=== PATIENT | female | born 1985 | race Caucasian/White ===

== ENCOUNTER 2021-11-30 19:31 | Emergency (ER) | payer MEDICARE, MEDICAID, SELFPAY ==
[2021-11-30 19:53] VITALS: BP 148/80; PULSE 71; RESP 22; TEMP 36.3; O2SAT 98
--- NOTE | 2021-11-30 20:03 | ED_ITS ---
HPI - Dental/Oral General: Chief complaint: Dental/Oral Stated complaint: Tooth Ache Time Seen by Provider: 11/30/21 19:54 History of Present Illness: Patient's had dental pain last few days lower left rear molar. Review of Systems Narrative: To third ENMT: Reports: dental pain Resp: Denies: dyspnea Neuro: Denies: headache(s) Physical Exam Const: COMMON NORMALS: no acute distress HENMT: TEETH & GINGIVA: Yes caries (Left rear molar, no gum swelling noted.) Lymph: LYMPHATIC: no lymphadenopathy noted Psych: COMMON NORMALS: mental status grossly normal Course Vital Signs: Vital signs: Vital Signs Temperature 97.4 F L 11/30/21 19:53 Pulse Rate 71 11/30/21 19:53 Respiratory Rate 22 H 11/30/21 19:53 Blood Pressure 148/80 11/30/21 19:53 Pulse Oximetry 98 11/30/21 19:53 MDM - Dental/Oral Medical Decision Making Dental caries Discharge Plan Discharge Patient Disposition: Home Clinical Impression: Toothache Condition: Stable Prescriptions: New Celebrex 100 mg capsule 100 mg PO BID Qty: 20 0RF clindamycin HCl 300 mg capsule 300 mg PO Q8H 7 Days Qty: 21 0RF Lidocaine Viscous 2 % solution 1 applic mucous membrane Q6H PRN (Reason: pain) Qty: 100 0RF Discharge Orders: Discharge ED (Routine); Ordered 11/30/21 Ordered By: Paul Wheeler Discharge Diet: Usual diet Discharge Activity: Resume usual activity Patient Instructions: Dental Caries (Cavities) Activity Restrictions/Additional Instructions: Take medication as directed. Follow-up with dentist as soon as you can. Coding Level of Care Code ED Linderman Machine Operator for Kyler Fernandez
[2021-11-30] MEDS: clindamycin 150 mg Capsule 300 MG PO (20:09)
[2021-11-30] MEDS: CELEcoxib 200 mg Capsule 400 MG PO (20:09)
[2021-11-30 22:03] VITALS: BP 147/84; PULSE 72; RESP 20; TEMP 36.4; O2SAT 99
== END 2021-11-30 22:04 | disposition home or self-care (01) ==
PROVIDERS: Emergency Provider Nurse Practitioner Family
DX: K08.89 Other specified disorders of teeth and supporting structures (principal)
CPT/HCPCS: 99283

== ENCOUNTER 2022-03-11 10:26 | Emergency (ER) | payer MEDICARE, MEDICAID, SELFPAY ==
[2022-03-11 11:02] VITALS: BP 173/103; PULSE 71; RESP 18; TEMP 36.8; O2SAT 94; BMI 51.5
--- NOTE | 2022-03-11 11:12 | ED_ITS ---
HPI - Dental/Oral General: Chief complaint: Dental/Oral Stated complaint: tooth pain Time Seen by Provider: 03/11/22 11:08 History of Present Illness: Patient is a 36-year-old female comes to the ED with dental pain. Patient has pain and swelling on top left back molar. She rates her pain currently a 9 out of 10. Symptoms started approximately 3 days ago. Patient has an appointment with her dentist in 2 weeks. Associated symptoms: Denies fever(s) or odynophagia Review of Systems Const: Denies: fever(s), chills or fatigue Eyes: Denies: change in vision or eye discomfort ENMT: Reports: dental pain (Top back left molar); Denies: throat pain, odynophagia, nasal discharge or nasal congestion Card: Denies: chest pain, palpitations, edema, swelling of feet/ankles, dyspnea on exertion or orthopnea Resp: Denies: dyspnea, productive cough or non-productive cough GI: Denies: abdominal pain, nausea, vomiting, diarrhea, constipation or hematochezia : Denies: flank pain, dysuria or hematuria Musc: Denies: neck pain, back pain or extremity swelling Skin/Breast: Denies: rash or new lesions Neuro: Denies: headache(s), numbness in extremities or weakness in extremities PFSH ED PFSH: Medical History No pertinent family history Surgical History No pertinent past surgical history Physical Exam Const: COMMON NORMALS: no acute distress and patient oriented x3 GENERAL APPEARANCE: cooperative and comfortable HENMT: COMMON NORMALS: normocephalic HEAD & SCALP: normocephalic MOUTH: Normal oral and palatal mucosa present TEETH & GINGIVA: Yes abnormal tooth and associated gingiva upper left third molar tender and other (And severe dental decay) THROAT: posterior oropharynx normal and uvula midline Neck/C-Spine: COMMON NORMALS: supple GENERAL: Yes normal visual inspection Resp: COMMON NORMALS: normal respiratory effort, No retractions, No use of accessory muscles and clear to auscultation bilaterally AUSCULTATION: clear to auscultation bilaterally Cardio: COMMON NORMALS: regular rate, regular rhythm, S1 normal heart sound present, S2 normal heart sound present, No gallops present (Cardio), No clicks present (Cardio), No murmurs present (Cardio) and Peripheral pulses 2+ throughout RATE: regular rate RHYTHM: regular rhythm HEART SOUNDS: S1 normal heart sound present and S2 normal heart sound present PERIPHERAL PULSES: Peripheral pulses 2+ throughout GI: COMMON NORMALS: Normal to inspection, nondistended, normoactive bowel sounds present, Soft to palpation, non-tender and no masses PALPATION: Yes Soft to palpation : COMMON NORMALS: Yes no CVA tenderness BLADDER/KIDNEY EXAM: Yes no CVA tenderness Back/Pelvis: COMMON NORMALS: no CVA tenderness Extremity: COMMON NORMALS: normal to inspection Neuro: COMMON NORMALS: patient oriented x3 and moves all extremities Skin: GENERAL SKIN EXAM: dry skin Course Vital Signs: Vital signs: Vital Signs Temperature 98.2 F 03/11/22 11:02 Pulse Rate 71 03/11/22 11:02 Respiratory Rate 18 03/11/22 11:02 Blood Pressure 173/103 03/11/22 11:02 Pulse Oximetry 94 03/11/22 11:02 [facility] - Dental/Oral Medical Decision Making Patient is a 32-year-old female comes in the ED with dental pain. Vitals are stable and she appears nontoxic and has some severe dental decay of upper left molar. Patient has appointment with her dentist for the next 2 weeks. She was given a dose of hydrocodone to help with pain here in the ED. Patient discharged home with a prescription for clindamycin, lidocaine viscous and Celebrex for pain. Return ED precautions given. Patient understood agree with plan. Discharge Plan Discharge Patient Disposition: Home Clinical Impression: Pain, dental Condition: Stable Prescriptions: New clindamycin HCl 150 mg capsule 300 mg PO QID 7 Days Qty: 56 0RF Celebrex 100 mg capsule 100 mg PO BID PRN (Reason: pain) Qty: 20 0RF Lidocaine Viscous 2 % solution 1 applic mucous membrane DAILY PRN (Reason: pain) Qty: 100 0RF No Action Celebrex 100 mg capsule 100 mg PO BID Qty: 20 0RF Lidocaine Viscous 2 % solution 1 applic mucous membrane Q6H PRN (Reason: pain) Qty: 100 0RF Discharge Orders: Discharge ED (Routine); Ordered 03/11/22 Ordered By: Robert Rios Discharge Diet: Regular Discharge Activity: Increase activity as tolerated Patient Instructions: Toothache (ED) Activity Restrictions/Additional Instructions: Follow-up with your dentist at Scheduled appointment in 2 weeks for further evaluation of dental pain. Take medications as prescribed. Return to the ER or your medical provider if condition worsens. Please read and understand discharge instructions. Thank you for choosing [facility] for your healthcare needs today. Please realize this is an emergency room and that we are providing you with a medical screening exam and this may not be complete and all inclusive of all the testing and or work up that you may need to determine your ailment or severity of your illness. It is very important that you follow up as instructed or that you return to the Emergency Department should you have concerns or if your co ndition changes or worsens in any way. Coding Level of Care Code ED Banking Consultant for Kyler Fernandez Exam Comprehensive
[2022-03-11] MEDS: HYDROcodone-acetaminophen 7.5-325 mg Tablet 1 TAB PO (11:24)
== END 2022-03-11 11:24 | disposition home or self-care (01) ==
PROVIDERS: Emergency Provider Physician Assistant
DX: K08.89 Other specified disorders of teeth and supporting structures (principal)
CPT/HCPCS: 99283

== ENCOUNTER 2022-04-14 13:48 | Emergency (ER) | payer MEDICARE, MEDICAID, SELFPAY ==
[2022-04-14 14:15] VITALS: BP 174/75; PULSE 61; RESP 18; TEMP 36.6; O2SAT 98
--- NOTE | 2022-04-14 15:03 | W.ED.GENADLT ---
HPI - General Adult General: Chief complaint: Dental/Oral Stated complaint: dental pain Time Seen by Provider: 04/14/22 14:37 History of Present Illness: Patient is a 36-year-old female coming in from a detention presenting to the emergency room for evaluation of tooth pain. Patient first felt tooth pain yesterday night. Patient tells me that she scheduled to have wisdom teeth taken out on 04/18. Given significant yesterday night, patient decided to come to the emergency room for evaluation. Patient denies any fever or chills, reports some mild left-sided facial swelling. Patient has no trismus, tongue protrusion or elevation, drooling, or any other complaints at this time Onset: Yesterday night Duration:ongoing Location:home Severity:mild Associated symptoms: Deny chest pain, dyspnea, nausea, rash, palpitations or vomiting Review of Systems Const: Denies: fever(s) or chills Eyes: Denies: change in vision ENMT: Reports: other (+dental pain); Denies: mouth pain Card: Denies: chest pain or palpitations Resp: Denies: dyspnea or non-productive cough GI: Denies: abdominal pain, nausea, vomiting or diarrhea : Denies: dysuria Musc: Denies: extremity pain Skin/Breast: Denies: rash or new lesions Neuro: Denies: weakness in extremities Psych: Reports: other (Normal mood) Maik/Lymph: Denies: easy bruising PFS ED PFSH: Medical History No pertinent family history Surgical History No pertinent past surgical history Social History (Updated 04/14/22 @ 15:04 by Dami Wilson MD) Smoking and tobacco status: never smoked Alcohol intake: never Substance/Drug Use: never Physical Exam Const: COMMON NORMALS: alert HENMT: COMMON NORMALS: atraumatic HEAD & SCALP: atraumatic MOUTH: moist mucous membranes not abnormal OTHER: Tooth #16 tenderness to palpation +Mild L maxillary facial swelling without periorbital involvement with tenderness to palpation Eye: COMMON NORMALS: EOMs intact bilaterally and conjunctivae normal CONJUNCTIVA: Yes conjunctivae normal Neck/C-Spine: COMMON NORMALS: full ROM and supple Resp: COMMON NORMALS: normal respiratory effort and clear to auscultation bilaterally AUSCULTATION: clear to auscultation bilaterally Cardio: COMMON NORMALS: regular rate RATE: regular rate GI: COMMON NORMALS: Soft to palpation and non-tender PALPATION: Yes Soft to palpation Extremity: COMMON NORMALS: full ROM Neuro: SENSORIUM/ORIENTATION: Yes alert MOTOR EXAM: No Abnormal motor strength present and Other motor observations present (no focal motor deficits) Psych: COMMON NORMALS: speech normal SPEECH: Yes normal speech MOOD & AFFECT: Yes euthymic mood Course Vital Signs: Vital signs: Vital Signs Temperature 97.8 F 04/14/22 14:15 Pulse Rate 61 04/14/22 14:15 Respiratory Rate 18 04/14/22 14:15 Blood Pressure 174/75 04/14/22 14:15 Pulse Oximetry 98 04/14/22 14:15 MDM - General Adult Medical Decision Making 36-year-old female presenting to the emergency room with complaints of tooth #16 pain since yesterday night. On exam, patient has significant tenderness to palpation. There is noted some mild left-sided maxillary facial swelling with out any periorbital involvement. Patient is afebrile. No signs of oral airway compromise. Patient will be started with Augmentin for possible tooth infection. Suspect symptoms are likely unrelated to tooth infection as opposed to wisdom teeth pain. Patient has an appointment with her dentist on 04/18/2022. Pain improved with toradol. Rx augmentin for possible dental infection, tylenol PRN pain Disposition: Discharge. Patient counseled regarding diagnostic impression, treatment plan. Patient given ED strict return precautions to return for continuation, worsening, or development of new symptoms. Instructed to f/u w/ PCP regarding symptoms today. Patient verbalized understanding. Discharge Plan Discharge Patient Disposition: Home Clinical Impression: Pain, dental Condition: Stable Prescriptions: New Augmentin 500-125 mg tablet 1 tab PO BID 7 Days Qty: 14 0RF acetaminophen 500 mg tablet 500 mg PO Q6H PRN (Reason: pain) 5 Days Qty: 20 0RF No Action Celebrex 100 mg capsule 100 mg PO BID Qty: 20 0RF Lidocaine Viscous 2 % solution 1 applic mucous membrane Q6H PRN (Reason: pain) Qty: 100 0RF Celebrex 100 mg capsule 100 mg PO BID PRN (Reason: pain) Qty: 20 0RF Lidocaine Viscous 2 % solution 1 applic mucous membrane DAILY PRN (Reason: pain) Qty: 100 0RF Discharge Orders: Discharge ED (Routine); Ordered 04/14/22 Ordered By: Dami Wilson Discharge Diet: Advance as tolerated Discharge Activity: Increase activity as tolerated Activity Restrictions/Additional Instructions: Follow-up with your dentist for further evaluation of your wisdom teeth to see they can be removed sooner. Please take your antibiotics as instructed. Watch out for signs of skin changes/redness, mouth redeness or swelling, nausea/vomiting, diarrhea, blood in the urine or any new or concering complaints. Coding Level of Care Code ED Director Of Retail for Kyler Fernandez
[2022-04-14] MEDS: ketorolac 30 mg/mL INJ IM (15:16)
[2022-04-14] MEDS: amoxicillin-clav 500-125 mg Tablet 1 TAB PO (15:16)
== END 2022-04-14 15:17 | disposition home or self-care (01) ==
PROVIDERS: Emergency Provider Emergency Medicine
DX: K08.89 Other specified disorders of teeth and supporting structures (principal)
CPT/HCPCS: 96372; 99284; J1885; J2270

== ENCOUNTER 2022-04-14 21:19 | Emergency (ER) | payer MEDICARE, MEDICAID, SELFPAY ==
[2022-04-14 21:28] VITALS: BP 169/79; PULSE 66; RESP 20; TEMP 36.3; O2SAT 97
[2022-04-14 22:23] VITALS: RESP 20
[2022-04-14] MEDS: morphine 4 mg/mL SDV 1 mL IM (22:23)
--- NOTE | 2022-04-14 22:34 | W.ED.GENADLT ---
HPI - General Adult General: Chief complaint: Dental/Oral Stated complaint: Dental pain Time Seen by Provider: 04/14/22 21:47 History of Present Illness: 36-year-old female from [facility] presenting to the emergency room with complaints of tooth #16 pain. Patient was seen and evaluated earlier in the emergency room however due to significant pain patient decided to come to the emergency room. I discussed case with patient's legal guardian and profile saw setup operator who tells me that patient will not be schedule for wisdom teeth removal until 04/18 in [place] to logistical issues. Onset:1 day ago Duration:1 day Location:home Severity:moderate Associated symptoms: Deny chest pain, dyspnea, nausea, rash, palpitations or vomiting Review of Systems Const: Denies: fever(s) or chills Eyes: Denies: change in vision ENMT: Reports: other (+tooth pain); Denies: mouth pain Card: Denies: chest pain or palpitations Resp: Denies: dyspnea or non-productive cough GI: Denies: abdominal pain, nausea, vomiting or diarrhea : Denies: dysuria Musc: Denies: extremity pain Skin/Breast: Denies: rash or new lesions Neuro: Denies: weakness in extremities Psych: Reports: other (Normal mood) Maik/Lymph: Denies: easy bruising PFSH ED PFSH: Medical History No pertinent family history Surgical History No pertinent past surgical history Social History Smoking and tobacco status: never smoked Alcohol intake: never Physical Exam Const: COMMON NORMALS: alert HENMT: COMMON NORMALS: atraumatic HEAD & SCALP: atraumatic MOUTH: moist mucous membranes not abnormal OTHER: Tooth #16 tenderness palpation No trismus, mild left-sided maxillary facial swelling noted without periorbital involvement Eye: COMMON NORMALS: EOMs intact bilaterally and conjunctivae normal CONJUNCTIVA: Yes conjunctivae normal Neck/C-Spine: COMMON NORMALS: full ROM and supple Resp: COMMON NORMALS: normal respiratory effort and clear to auscultation bilaterally AUSCULTATION: clear to auscultation bilaterally Cardio: COMMON NORMALS: regular rate RATE: regular rate GI: COMMON NORMALS: Soft to palpation and non-tender PALPATION: Yes Soft to palpation Extremity: COMMON NORMALS: full ROM Neuro: SENSORIUM/ORIENTATION: Yes alert MOTOR EXAM: No Abnormal motor strength present and Other motor observations present (no focal motor deficits) Psych: COMMON NORMALS: speech normal SPEECH: Yes normal speech MOOD & AFFECT: Yes euthymic mood Course Vital Signs: Vital signs: Vital Signs Temperature 97.4 F L 04/14/22 21:28 Pulse Rate 66 04/14/22 21:28 Respiratory Rate 20 H 04/14/22 22:23 Blood Pressure 169/79 04/14/22 21:28 Pulse Oximetry 97 04/14/22 21:28 MDM - General Adult Medical Decision Making 36-year-old female presenting to the emergency room for concerns of wisdom tooth pain at tooth #16. Patient is experiencing moderate pain and this is her second ER visit. Patient has moderate tenderness palpation over the left tooth #16. I have discussed the situation with patient's profile saw setup operator who reassures me that we will advocate for patient to have to be seen sooner for dental work. Patient received IM morphine and percocet in the ED and reports pain is moderately improved. Rx percocet PRN pain Disposition: Discharge. Patient counseled regarding diagnostic impression, treatment plan. Patient given ED strict return precautions to return for continuation, worsening, or development of new symptoms. Instructed to f/u w/ PCP regarding symptoms today. Patient verbalized understanding. Discharge Plan Discharge Patient Disposition: Home Clinical Impression: Pain, dental Condition: Stable Prescriptions: New Lidocaine Viscous 2 % solution 1 applic mucous membrane DAILY PRN (Reason: pain) Qty: 100 0RF Percocet 5-325 mg tablet 1 tab PO Q8H PRN (Reason: pain) Qty: 9 0RF No Action Celebrex 100 mg capsule 100 mg PO BID Qty: 20 0RF Lidocaine Viscous 2 % solution 1 applic mucous membrane Q6H PRN (Reason: pain) Qty: 100 0RF Celebrex 100 mg capsule 100 mg PO BID PRN (Reason: pain) Qty: 20 0RF Lidocaine Viscous 2 % solution 1 applic mucous membrane DAILY PRN (Reason: pain) Qty: 100 0RF Augmentin 500-125 mg tablet 1 tab PO BID 7 Days Qty: 14 0RF acetaminophen 500 mg tablet 500 mg PO Q6H PRN (Reason: pain) 5 Days Qty: 20 0RF Discharge Orders: Discharge ED (Routine); Ordered 04/14/22 Ordered By: Dami Wilson Discharge Diet: Advance as tolerated Discharge Activity: Increase activity as tolerated Patient Instructions: Toothache (ED) Activity Restrictions/Additional Instructions: Please follow-up with your dentist to have your wisdom teeth removed. Coding Level of Care Code ED Gas Meter Checker for Chg Fwd Exam Comprehensive
[2022-04-14 22:57] VITALS: RESP 16
== END 2022-04-14 22:58 | disposition home or self-care (01) ==
PROVIDERS: Emergency Provider Emergency Medicine
DX: K08.89 Other specified disorders of teeth and supporting structures (principal)
CPT/HCPCS: 96372; 99284; J2270

== ENCOUNTER 2023-12-18 03:52 | Inpatient (IN) | payer MEDICARE, MEDICAID, SELFPAY ==
--- NOTE | 2023-12-18 03:39 | ECG_ITS ---
[facility] Test Date: 2023-12-18 Pat Name: Joi Diaz Department: Room: 152 Gender: Female Medicaid Collection Specialist: : 1985 Requested By: Shimon Urena Order Number: [id number] Manuela MD: Ky Navas M.D. Measurements Intervals [place] Rate: 68 P: 67 IA: 143 QRS: 13 QRSD: 106 T: 27 QT: 400 QTc: 428 Interpretive Statements SINUS RHYTHM WITH SINUS ARRHYTHMIA POSSIBLE RIGHT VENTRICULAR CONDUCTION DELAY [RSR (QR) IN V1/V2] No previous ECG available for comparison Electronically Signed On 12-18-2023 15:18:58 CDT by Ky Navas M.D. [id number]
[2023-12-18 03:53] VITALS: BP 163/114; PULSE 90; RESP 18; TEMP 36.8; O2SAT 99; BMI 43.8
--- NOTE | 2023-12-18 04:10 | PC.NURSE ---
Patient was dressed out of all regular clothing. When asked to remove her two bras, patient raised her voice and began to make statements that she would not take off her bra, and that she would leave. When security was brought to the room, campus security officer Sahil told patient that she could keep her sports bra on but not the one with underwire. All other clothes and belongings removed from patient and placed in labeled bag. Patient placed in green paper scrubs. PSA present with patient at this time.
--- NOTE | 2023-12-18 04:32 | ED.C_ITS ---
HPI - Psych 2 General: Chief Complaint: Psychiatric Symptoms Stated Complaint: MHE Time Seen by Provider: 12/18/23 03:54 History of Present Illness: 38-year-old female presents to the emerg ency department via EMS personnel stating that she needs to be seen in the stress unit because she feels that people are messing with her while she is on her phone. She states that they make her phone say things and type things that make her angry and upset. Patient states that she knows that people are coming into her house and taking things from her. She states that she knows that when she leaves and then comes back home she feels like things are missing and then these things randomly show up weeks to months later. She states someone is doing that just to mess with her but she is unsure of who is doing it. Patient has a very labile mood and states that the intake scrubs were specifically made smaller by the staff just to mess with her. She states she does not want to harm herself or anyone else. The patient states that she feels her mother is jealous of her and and might be making people do things that irritate her and make her angry. Associated symptoms: Deny auditory hallucinations, visual hallucinations, homicidal ideation or suicidal ideation Review of Systems 2 General: Reports: 10 or more systems reviewed and unremarkable except in HPI and below Psych: Reports: mood swings, irritability and paranoia; Denies: difficulty concentrating, visual hallucinations, auditory hallucinations, tactile hallucinations, suicidal ideation or homicidal ideation [facility] ED 2 PFSH: Medical History (Updated 12/18/23 @ 05:18 by Shimon Urena MD) No pertinent family history Surgical History (Updated 02/11/23 @ 16:25 by Marva Aleman) No pertinent past surgical history Social History (System 02/11/23 @ 16:25 by Marva Aleman) Smoking and tobacco/nicotine status: never used tobacco/nicotine Alcohol intake: never Substance/Drug Use: never Female Reproductive History: Date of last menstrual period: 12/18/23 Physical Exam 2 Narrative: EXAM NARRATIVE: Constitutional: the patient appears well nourished and with normal development. Vital signs reviewed as documented. She does appear to be very irritated and is cussing and yelling at the nursing staff and the information security risk analyst. HENMT: Normocephalic, atraumatic. External ears normal appearance without drainage. Nose without drainage, normal appearance. Mucus membranes moist. Neck is supple, No jugular venous distension, trachea is midline. No meningeal signs. Flexion, extension and lateral rotation is without pain. Eyes: Pupils are equal, round, reactive to light and accommodation. No scleral icterus. Extra-ocular movement are intact. Thorax is symmetrical and with equal rise and fall with respirations. Resp: Lungs are clear to auscultation. No wheezes, rales, crackles or ronchi at present. Cardio: Regular rate and rhythm. Positive S1, S2. No appreciable murmurs, rubs or gallops. GI: Abdominal exam reveals normal bowel sounds to all quadrants. No organomegaly. No obvious palpable masses noted. No hepatomegally appreciated. Soft, non-tender to palpation. Extremity: Extremities are non-edematous and both femoral and pedal pulses are 2+ and equal bilaterally. Moves all extremities well, sensation in all extremities. Neuro: Alert and oriented x4, person, place, time and situation. Cranial nerves II through XII are grossly intact, there is no focal neurological deficits that I can appreciate at present. Motor strength in the upper and lower extremities are equal and bilateral 5/5. Psych: Angry, verbally aggressive, labile mood, paranoid statements Skin: No lesions, rashes. No gross abnormalities noted. Back: Symmetrical, no obvious deformity, No CVA tenderness Course 2 Vital Signs: Vital signs: Vital Signs Temperature 98.3 F 12/18/23 03:53 Pulse Rate 90 12/18/23 03:53 Respiratory Rate 18 12/18/23 03:53 Blood Pressure 163/114 12/18/23 03:53 Pulse Oximetry 99 12/18/23 03:53 Oxygen Delivery Me thod Room Air 12/18/23 03:53 MDM - Psych Medical Decision Making I will obtain laboratory evaluation for psychiatric medical clearance and request admission to the neuropsychiatric unit for additional evaluation treatment and care. Medical Records I reviewed the patient's medical records. Lab Data I reviewed the patient's lab results. 12/18/23 04:40 12/18/23 04:40 Laboratory Results WBC 9.57 10^3/uL (3.29-11.43) 12/18/23 04:40 RBC 4.48 10^6/uL (3.85-5.65) 12/18/23 04:40 Hgb 13.90 g/dL (11.27-16.99) 12/18/23 04:40 Hct 41.1 % (36-47) 12/18/23 04:40 MCV 91.7 fl (85-98) 12/18/23 04:40 MCH 31.0 pg (27-33) 12/18/23 04:40 MCHC 33.8 g/dL (30-55) 12/18/23 04:40 RDW 13.6 % (12.1-15.1) 12/18/23 04:40 Plt Count 233 10^3/cmm (157-399) 12/18/23 04:40 MPV 10.7 fL (7.4-10.4) H 12/18/23 04:40 Neut % (Auto) 69.9 % 12/18/23 04:40 Lymph % (Auto) 21.2 % 12/18/23 04:40 Burt % (Auto) 6.5 % 12/18/23 04:40 Eos % (Auto) 1.6 % 12/18/23 04:40 Baso % (Auto) 0.6 % 12/18/23 04:40 Neut # (Auto) 6.69 10^3/uL (1.8-7.7) 12/18/23 04:40 Lymph # (Auto) 2.0 10^3/uL (0.8-4.8) 12/18/23 04:40 Burt # (Auto) 0.6 10^3/uL (0.2-0.9) 12/18/23 04:40 Eos # (Auto) 0.2 10^3/uL (0.0-0.8) 12/18/23 04:40 Baso # (Auto) 0.1 10^3/uL (0.0-0.1) 12/18/23 04:40 Nucleated RBC % (auto) 0 % 12/18/23 04:40 Nucleated RBCs # 0.0 /100WBC 12/18/23 04:40 Sodium 141 mmol/L (136-145) 12/18/23 04:40 Potassium 3.6 mmol/L (3.5-5.1) 12/18/23 04:40 Chloride 104 mmol/L (98-107) 12/18/23 04:40 Carbon Dioxide 23 mmol/L (22-29) 12/18/23 04:40 Anion Gap 17.6 (5-19) 12/18/23 04:40 BUN 11 mg/dL (6-20) 12/18/23 04:40 Creatinine 0.8 mg/dL (0.5-0.9) 12/18/23 04:40 GFR Calculation 80.3 mL/min (90-130) L 12/18/23 04:40 Glucose 124 mg/dL (65-115) H 12/18/23 04:40 Calculated Osmolality 293 mOsm/kg (285-295) 12/18/23 04:40 Calcium 8.3 mg/dL (8.5-10.5) L 12/18/23 04:40 Total Bilirubin 0.8 mg/dL (0.15-1.2) 12/18/23 04:40 AST 19 U/L (0-32) 12/18/23 04:40 ALT 14 U/L (0-33) 12/18/23 04:40 Alkaline Phosphatase 62 U/L (35-105) 12/18/23 04:40 Total Protein 7.0 g/dL (6.6-8.7) 12/18/23 04:40 Albumin 3.8 g/dL (3.5-5.2) 12/18/23 04:40 Globulin 3.2 g/dL (1.3-4.6) 12/18/23 04:40 HCG, Qual Negative (Negative) 12/18/23 04:18 Urine Color Dark yellow (Yellow) 12/18/23 04:18 Urine Appearance Hazy (CLEAR) A 12/18/23 04:18 Urine pH 5 (5-7) 12/18/23 04:18 Ur Specific [place] 1.030 (1.005-1.030) 12/18/23 04:18 Urine Protein Trace (Negative) 12/18/23 04:18 Urine Glucose (UA) Norm (Normal) 12/18/23 04:18 Urine Ketones 1+ (Negative) H 12/18/23 04:18 Urine Blood 3+ (Negative) H 12/18/23 04:18 Urine Nitrate Negative (Negative) 12/18/23 04:18 Urine Bilirubin Neg (Negative) 12/18/23 04:18 Urine Urobilinogen Neg mg/dL (Negative) 12/18/23 04:18 Ur Leukocyte Esterase Trace (Negative) H 12/18/23 04:18 Urine RBC 80-100 /hpf (0-2) H 12/18/23 04:18 Urine WBC 10-15 /hpf (0-5) H 12/18/23 04:18 Ur Squamous Epith Cells 10-15 /hpf (0-5) H 12/18/23 04:18 Ur Transition Epith Cell 0-4 /hpf 12/18/23 04:18 Amorphous Sediment Not Reportable 12/18/23 04:18 Urine Bacteria 1+ /hpf (NONE) H 12/18/23 04:18 Urine Mucus 2+ /hpf 12/18/23 04:18 Salicylates < 0.3 mg/dL (3-10) L 12/18/23 04:40 Urine Opiates Screen Negative ng/mL (Negative) 12/18/23 04:18 Acetaminophen < 5.0 ug/mL (10-30) L 12/18/23 04:40 Ur Barbiturates Screen Negative ng/mL (Negative) 12/18/23 04:18 Ur Phencyclidine Scrn Negative ng/mL (Negative) 12/18/23 04:18 Ur Amphetamines Screen Negative ng/mL (Negative) 12/18/23 04:18 U Benzodiazepines Scrn Negative ng/mL (Negative) 12/18/23 04:18 Urine Cocaine Screen Negative ng/mL (Negative) 12/18/23 04:18 U Marijuana (THC) Screen Positive ng/mL (Negative) H 12/18/23 04:18 Ethyl Alcohol < 10 mg/dL (0-10) 12/18/23 04:40 No radiology studies performed this visit EKG Data EKG 1: Interpretation: Twelve-lead EKG obtained at 0 339 and reviewed at 0 340 demonstrates sinus rhythm with a ventricular rate of 68 bpm, ID interval 143, QRS duration 106, QT 400, QTc [address] elevation or depression to demonstrate acute ischemia or infarction at present. Discharge Plan Discharge Patient Disposition: Admitted As Inpatient Admit Provider: Sarbjit Noel Clinical Impression: Paranoid reaction, acute, Mood disorder Condition: Stable Coding Level of Care Code ED Scrap Yard Worker for Kyler Fernandez
[2023-12-18 04:46] LABS: HCG Qualitative Urine. Negative (Negative)
[2023-12-18 04:52] LABS: Basophils # 0.1 10^3/uL (0.0-0.1); Basophils % 0.6 %; Eosinophils # 0.2 10^3/uL (0.0-0.8); Eosinophils % 1.6 %; Hematocrit 41.1 % (36-47); Lymphocytes % 21.2 %; Mean Corpuscular HGB Conc 33.8 g/dL (30-55); Mean Corpuscular Volume 91.7 fl (85-98); Mean Platelet Volume 10.7 fL (7.4-10.4); Monocytes # 0.6 10^3/uL (0.2-0.9); Monocytes % 6.5 %; Neutrophils # 6.69 10^3/uL (1.8-7.7); Neutrophils % 69.9 %; Nucleated Red Blood Cells % 0 %; Platelet Count 233 10^3/cmm (157-399); Red Blood Count 4.48 10^6/uL (3.85-5.65); Red Cell Distribution Width 13.6 % (12.1-15.1); White Blood Count 9.57 10^3/uL (3.29-11.43)
[2023-12-18 04:53] LABS: Amphetamines Screen Urine Negative (Negative); Barbiturates Screen Urine Negative (Negative); Benzodiazepines Screen Urine Negative (Negative); Cocaine Screen Urine Negative (Negative); Opiate Screen Urine Negative (Negative); PCP Screen Urine Negative (Negative); THC Screen Urine Positive (Negative)
[2023-12-18 04:54] LABS: Add Urine Microscopic? YES; Bilirubin Urine Neg (Negative); Blood Urine 3+ (Negative); Glucose Urine UA Norm (Normal); Ketones Urine 1+ (Negative); Leukocyte Esterase Urine Trace (Negative); Nitrate Urine Negative (Negative); Protein Urine Trace (Negative); RBC Urine 80-100 /hpf (0-2); Transitional Epi Cells Urine 0-4 /hpf; Urine Appearance Hazy (CLEAR); Urine Color Dark Yellow (Yellow); Urobilinogen Urine Neg (Negative); pH Urine 5 (5-7)
[2023-12-18 04:55] LABS: Add Urine Culture? No; Bacteria Urine 1+ /hpf; Mucus Urine 2+ /hpf
[2023-12-18 05:12] LABS: Alanine Aminotransferase 14 U/L (0-33); Albumin Level 3.8 g/dL (3.5-5.2); Alkaline Phosphatase 62 U/L (35-105); Anion Gap 17.6 (5-19); Aspartate Amino Transferase 19 U/L (0-32); Blood Urea Nitrogen 11 mg/dL (6-20); Calcium 8.3 mg/dL (8.5-10.5); Carbon Dioxide 23 mmol/L (22-29); Chloride 104 mmol/L (98-107); Creatinine Clr Calc Pharmacy 132.1007; Globulin 3.2 g/dL (1.3-4.6); Glomerular Filtration Rate 80.3 mL/min (90-130); Glucose 124 mg/dL (65-115); Osmolality Calculated 293 mOsm/kg (285-295); Potassium 3.6 mmol/L (3.5-5.1); Sodium 141 mmol/L (136-145); Total Bilirubin 0.8 mg/dL (0.15-1.2)
[2023-12-18 05:15] LABS: Acetaminophen < 5.0 ug/mL (10-30); Alcohol Level < 10 mg/dL (0-10); Salicylate < 0.3 mg/dL (3-10)
--- NOTE | 2023-12-18 05:36 | PC.NURSE ---
Report called to Viviana in NPU. All questions and concerns addressed at time of report.
[2023-12-18 05:46] VITALS: BP 129/90; PULSE 72; RESP 20; TEMP 36.8; O2SAT 98
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
[2023-12-18 08:04] LABS: Glucose Point of Care 108 mg/dL (70-110)
[2023-12-18] MEDS: BuSPIRONE 10 mg Tablet 15 MG PO (08:21)
[2023-12-18] MEDS: metformin 500 mg Tablet PO (08:21)
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
[2023-12-18 13:55] VITALS: BP 116/80; PULSE 75; RESP 16; TEMP 36.8; O2SAT 97
[2023-12-18 17:50] LABS: Glucose Point of Care 81 mg/dL (70-110)
[2023-12-18] MEDS: quetiapine 25 mg Tablet 50 MG PO (19:50)
[2023-12-18 20:35] LABS: Glucose Point of Care 101 mg/dL (70-110)
[2023-12-18 22:00] VITALS: BP 166/94; PULSE 99; RESP 18; O2SAT 98
--- NOTE | 2023-12-19 06:04 | PC.NURSE ---
pt ref vs resp 20
[2023-12-19 07:41] LABS: Glucose Point of Care 97 mg/dL (70-110)
[2023-12-19] MEDS: metformin 500 mg Tablet PO (08:26)
[2023-12-19] MEDS: BuSPIRONE 10 mg Tablet 15 MG PO (08:26)
[2023-12-19 11:49] LABS: Glucose Point of Care 82 mg/dL (70-110)
[2023-12-19 14:00] VITALS: BP 129/72; PULSE 82; RESP 16; TEMP 36.8; O2SAT 97
[2023-12-19 17:13] LABS: Glucose Point of Care 99 mg/dL (70-110)
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
[2023-12-19] MEDS: paliperidone ER 6 mg Tablet PO (19:59)
[2023-12-19] MEDS: quetiapine 25 mg Tablet 50 MG PO (19:59)
[2023-12-19 20:37] VITALS: BP 156/80; PULSE 84; RESP 18; TEMP 36.4; O2SAT 97
[2023-12-19 22:19] LABS: Glucose Point of Care 90 mg/dL (70-110)
[2023-12-20 06:00] VITALS: BP 140/72; PULSE 80; RESP 18; TEMP 36.7; O2SAT 98
[2023-12-20 07:51] LABS: Glucose Point of Care 99 mg/dL (70-110)
[2023-12-20] MEDS: paliperidone ER 6 mg Tablet PO (09:09)
[2023-12-20] MEDS: metformin 500 mg Tablet PO (09:09)
[2023-12-20] MEDS: BuSPIRONE 10 mg Tablet 15 MG PO (09:09)
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
[2023-12-20 11:58] LABS: Glucose Point of Care 82 mg/dL (70-110)
[2023-12-20 14:00] VITALS: BP 145/89; PULSE 85; RESP 20; TEMP 36.3; O2SAT 98
[2023-12-20 21:08] LABS: Glucose Point of Care 105 mg/dL (70-110)
[2023-12-20 21:09] VITALS: BP 116/72; PULSE 86; RESP 17; TEMP 36.3; O2SAT 95
[2023-12-20] MEDS: quetiapine 25 mg Tablet 50 MG PO (21:14)
[2023-12-21 06:00] VITALS: BP 139/86; PULSE 80; RESP 18; TEMP 36.4; O2SAT 98
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
[2023-12-21 08:16] LABS: Glucose Point of Care 93 mg/dL (70-110)
[2023-12-21] MEDS: metformin 500 mg Tablet PO (09:12)
[2023-12-21] MEDS: BuSPIRONE 10 mg Tablet 15 MG PO (09:12)
[2023-12-21] MEDS: paliperidone ER 6 mg Tablet PO (09:12)
--- NOTE | 2023-12-21 10:40 | PC.NURSE ---
Pt just handed this nurse a 2inch screw that she had found in the top of her closet in room 153.
[2023-12-21 12:00] LABS: Glucose Point of Care 90 mg/dL (70-110)
[2023-12-21 14:00] VITALS: BP 141/80; PULSE 85; RESP 20; TEMP 36.4; O2SAT 99
--- NOTE | 2023-12-21 15:44 | PC.NURSE ---
Pt stated that she feels someone has been in her room going through her things. Nursing staff assured pt that no one had been in her room. Pt is now agitated and pacing the hallway talking to herself.
[2023-12-21 16:47] LABS: Glucose Point of Care 102 mg/dL (70-110)
[2023-12-21 19:55] VITALS: BP 114/77; PULSE 109; RESP 18; TEMP 36.3; O2SAT 95
[2023-12-21 19:57] LABS: Glucose Point of Care 141 mg/dL (70-110)
[2023-12-21] MEDS: trazodone 50 mg Tablet PO (20:40)
[2023-12-21] MEDS: quetiapine 25 mg Tablet 50 MG PO (20:40)
[2023-12-22 06:00] VITALS: BP 116/71; PULSE 94; RESP 18; O2SAT 96
[2023-12-22 07:52] LABS: Glucose Point of Care 92 mg/dL (70-110)
[2023-12-22] MEDS: metformin 500 mg Tablet PO (08:16)
[2023-12-22] MEDS: BuSPIRONE 10 mg Tablet 15 MG PO (08:17)
[2023-12-22] MEDS: paliperidone ER 6 mg Tablet PO (08:17)
--- NOTE | 2023-12-22 09:04 | PC.NURSE ---
During morning shift assessment, patient paranoid. Patient yelled at staff for checking her room for more loose screws. Patient told this nurse that she feels better than I have in the last year and a half. Patient reports waking up in the night thinking that someone was messing with her, but states that she thinks it was her medication making her feel that way. Patient denies SI, Hi, AVH, depression, and anxiety. Patient currently in dayroom, running around the tables in the dayroom
[2023-12-22 11:34] LABS: Glucose Point of Care 105 mg/dL (70-110)
[2023-12-22 14:00] VITALS: BP 178/96; PULSE 97; RESP 15; TEMP 36.4; O2SAT 98
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
[2023-12-22 14:57] VITALS: BP 178/96; PULSE 97; RESP 15; TEMP 36.4; O2SAT 98
--- NOTE | 2023-12-22 15:38 | DCPLANNER ---
Imm was printed and right explained and given to pt and copy placed in file.
== END 2023-12-22 16:00 | disposition home or self-care (01) | DRG 885 ==
LOC: ER 05:28 → NP 05:32
PROVIDERS: Admitting Provider Psychiatry & Neurology Psychiatry; Emergency Provider Internal Medicine; Visit Provider Psychiatry & Neurology Psychiatry
DX: F20.0 Paranoid schizophrenia (principal); Z68.42 Body mass index [BMI] 45.0-49.9, adult; F12.90 Cannabis use, unspecified, uncomplicated; E66.01 Morbid (severe) obesity due to excess calories; F79 Unspecified intellectual disabilities; Z91.51 Personal history of suicidal behavior
CPT/HCPCS: 36416; 80053; 80306; 80307; 81001; 81025; 82962; 85025; 93005; 97150; 97165; 99285

== ENCOUNTER 2024-04-16 15:36 | Inpatient (IN) | payer MEDICARE, MEDICAID, SELFPAY ==
[2024-04-16 15:37] VITALS: BP 130/106; PULSE 86; RESP 16; TEMP 36.5; O2SAT 96; BMI 39.1
--- NOTE | 2024-04-16 15:52 | ED.C_ITS ---
HPI - Psych 2 General: Chief Complaint: Psychiatric Symptoms Stated Complaint: si Time Seen by Provider: 04/16/24 15:37 History of Present Illness: HPI: Patient with history of type 2 diabetes on metformin only, methamphetamine abuse, homelessness, presenting for suicidal ideation. Patient went to the crisis center today and was referred to the emergency department for further evaluation. Patient states that she was sleeping outside and the police removed her from an area. She subsequently went back to the area and was on 24-hour hold. She states that her not being able to sleep and this area has caused her a lot of stress and has make her think that she would be better off . Her current plan is to denny her check and shoot herself. Has attempted suicide in the past by drinking also clears including [place]-Desi and fabuloso. Denies any drug or alcohol use today. States last methamphetamine use was approximately 2 weeks ago. No physical complaints right now other than slight abrasions from the arrest by the police. Voluntary for admission. ROS: 10 systems reviewed and otherwise unrema rkable except for those noted in HPI. Physical Exam: Triage vital signs reviewed General: No acute distress, cooperative and comfortable HEENT: Normocephalic, atraumatic, external ears normal, moist mucous membranes, PERRLA. Chest: Normal inspection, equal rise and fall, no edema Respiratory: Normal respiratory effort, no atypical respiratory sounds GI: Non-tender to palpation, non-distended, Extremities: Moving all 4 extremities easily, no deformities Neuro: No meningeal signs, motor function in the room without abnormalities, sensation intact Skin: Various abrasions on bilateral upper and lower extremities Procedures: N/A MDM: Considered diagnoses include but are not limited to suicidal ideation, secondary gain, organic medical pathology. Vital signs nonactionable. Based on history, exam, no evidence of active emergent condition. Will admit the patient to psychiatry given patient does not contract for safety and has active suicidal ideation. Patient had laboratory evaluation in the emergency department and on-call psychiatrist was consulted for admission of this patient. Mild hypokalemia and leukocytosis. Patient educated about reasons to return to the emergency department including signs of ongoing or changing condition. Advised to make an appointment with primary care or to establish care with a primary care provider to review all results from this encounter. This note was written with assistance of dictation software. Contact author for any clarification of typos. Arnold Eldridge MD [facility] ED 2 PFSH: Medical History (Updated 04/16/24 @ 16:58 by Arnold Eldridge MD) No pertinent family history Surgical History (Updated 02/11/23 @ 16:25 by Marva Aleman) No pertinent past surgical history Social History (System 02/11/23 @ 16:25 by Marva Aleman) Smoking and tobacco/nicotine status: never used tobacco/nicotine Alcohol intake: never Substance/Drug Use: never Course 2 Vital Signs: Vital signs: Vital Signs Temperature 97.7 F 04/16/24 15:37 Pulse Rate 86 04/16/24 15:37 Respiratory Rate 16 04/16/24 15:37 Blood Pressure 130/106 04/16/24 15:37 Pulse Oximetry 96 04/16/24 15:37 Oxygen Delivery Me thod Room Air 04/16/24 15:37 MDM - Psych Medical Decision Making see mdm Lab Data 04/16/24 15:57 04/16/24 15:57 Laboratory Results WBC 15.21 10^3/uL (3.29-11.43) H 04/16/24 15:57 RBC 4.71 10^6/uL (3.85-5.65) 04/16/24 15:57 Hgb 14.70 g/dL (11.27-16.99) 04/16/24 15:57 Hct 42.6 % (36-47) 04/16/24 15:57 MCV 90.4 fl (85-98) 04/16/24 15:57 MCH 31.2 pg (27-33) 04/16/24 15:57 MCHC 34.5 g/dL (30-55) 04/16/24 15:57 RDW 12.9 % (12.1-15.1) 04/16/24 15:57 Plt Count 245 10^3/cmm (157-399) 04/16/24 15:57 MPV 11.1 fL (7.4-10.4) H 04/16/24 15:57 Neut % (Auto) 75.4 % 04/16/24 15:57 Lymph % (Auto) 17.4 % 04/16/24 15:57 [place] % (Auto) 6.0 % 04/16/24 15:57 Eos % (Auto) 0.5 % 04/16/24 15:57 Baso % (Auto) 0.5 % 04/16/24 15:57 Neut # (Auto) 11.47 10^3/uL (1.8-7.7) H 04/16/24 15:57 Lymph # (Auto) 2.6 10^3/uL (0.8-4.8) 04/16/24 15:57 [place] # (Auto) 0.9 10^3/uL (0.2-0.9) 04/16/24 15:57 Eos # (Auto) 0.1 10^3/uL (0.0-0.8) 04/16/24 15:57 Baso # (Auto) 0.1 10^3/uL (0.0-0.1) 04/16/24 15:57 Nucleated RBC % (auto) 0 % 04/16/24 15:57 Nucleated RBCs # 0.0 /100WBC 04/16/24 15:57 Sodium 139 mmol/L (136-145) 04/16/24 15:57 Potassium 3.0 mmol/L (3.5-5.1) L 04/16/24 15:57 Chloride 99 mmol/L (98-107) 04/16/24 15:57 Carbon Dioxide 25 mmol/L (22-29) 04/16/24 15:57 Anion Gap 18.0 (5-19) 04/16/24 15:57 BUN 8 mg/dL (6-20) 04/16/24 15:57 Creatinine 0.8 mg/dL (0.5-0.9) 04/16/24 15:57 GFR Calculation 80.3 mL/min (90-130) L 04/16/24 15:57 Glucose 92 mg/dL (65-115) 04/16/24 15:57 Calculated Osmolality 286 mOsm/kg (285-295) 04/16/24 15:57 Calcium 8.8 mg/dL (8.5-10.5) 04/16/24 15:57 Total Bilirubin 1.6 mg/dL (0.15-1.2) H 04/16/24 15:57 AST 28 U/L (0-32) 04/16/24 15:57 ALT 23 U/L (0-33) 04/16/24 15:57 Alkaline Phosphatase 72 U/L (35-105) 04/16/24 15:57 Total Protein 7.2 g/dL (6.6-8.7) 04/16/24 15:57 Albumin 4.2 g/dL (3.5-5.2) 04/16/24 15:57 Globulin 3.0 g/dL (1.3-4.6) 04/16/24 15:57 HCG, Qual Negative (Negative) 04/16/24 15:57 Salicylates 0.6 mg/dL (3-10) L 04/16/24 15:57 Urine Opiates Screen Negative ng/mL (Negative) 04/16/24 15:50 Acetaminophen < 5.0 ug/mL (10-30) L 04/16/24 15:57 Ur Barbiturates Screen Negative ng/mL (Negative) 04/16/24 15:50 Ur Phencyclidine Scrn Negative ng/mL (Negative) 04/16/24 15:50 Ur Amphetamines Screen Positive ng/mL (Negative) H 04/16/24 15:50 U Benzodiazepines Scrn Positive ng/mL (Negative) H 04/16/24 15:50 Urine Cocaine Screen Negative ng/mL (Negative) 04/16/24 15:50 U Marijuana (THC) Screen Positive ng/mL (Negative) H 04/16/24 15:50 Ethyl Alcohol < 10 mg/dL (0-10) 04/16/24 15:57 No radiology studies performed this visit Discharge Plan Discharge Patient Disposition: Admitted As Inpatient Clinical Impression: Suicidal ideation Condition: Stable Prescriptions: No Action buspirone 15 mg tablet 15 mg PO DAILY metformin 500 mg tablet 500 mg PO DAILY Seroquel 50 mg tablet 50 mg PO BEDTIME Symbicort 160-4.5 mcg/actuation HFA aerosol inhaler 2 puff INHALATION PRN PRN (Reason: Shortness Of Breath Or Wheezing) paliperidone 6 mg Tablet Extended Release 24hr 6 mg PO DAILY Qty: 30 1RF Coding Level of Care Code ED Business Intelligence Etl Developer for Kyler Fernandez
--- NOTE | 2024-04-16 16:05 | PC.NURSE ---
pt placed in paper scrubs and belongings placed in ED locker for room 8.
[2024-04-16 16:07] LABS: Basophils # 0.1 10^3/uL (0.0-0.1); Basophils % 0.5 %; Eosinophils # 0.1 10^3/uL (0.0-0.8); Eosinophils % 0.5 %; Hematocrit 42.6 % (36-47); Lymphocytes # 2.6 10^3/uL (0.8-4.8); Lymphocytes % 17.4 %; Mean Corpuscular HGB Conc 34.5 g/dL (30-55); Mean Corpuscular Hemoglobin 31.2 pg (27-33); Mean Corpuscular Volume 90.4 fl (85-98); Mean Platelet Volume 11.1 fL (7.4-10.4); Monocytes # 0.9 10^3/uL (0.2-0.9); Neutrophils # 11.47 10^3/uL (1.8-7.7); Neutrophils % 75.4 %; Nucleated Red Blood Cells % 0 %; Platelet Count 245 10^3/cmm (157-399); Red Blood Count 4.71 10^6/uL (3.85-5.65); Red Cell Distribution Width 12.9 % (12.1-15.1); White Blood Count 15.21 10^3/uL (3.29-11.43)
[2024-04-16 16:22] LABS: HCG, Serum Qual Negative (Negative)
[2024-04-16 16:24] LABS: Alanine Aminotransferase 23 U/L (0-33); Albumin Level 4.2 g/dL (3.5-5.2); Alkaline Phosphatase 72 U/L (35-105); Aspartate Amino Transferase 28 U/L (0-32); Blood Urea Nitrogen 8 mg/dL (6-20); Calcium 8.8 mg/dL (8.5-10.5); Carbon Dioxide 25 mmol/L (22-29); Chloride 99 mmol/L (98-107); Creatinine Clr Calc Pharmacy 123.9075; Glomerular Filtration Rate 80.3 mL/min (90-130); Glucose 92 mg/dL (65-115); Osmolality Calculated 286 mOsm/kg (285-295); Salicylate 0.6 mg/dL (3-10); Sodium 139 mmol/L (136-145); Total Bilirubin 1.6 mg/dL (0.15-1.2); Total Protein 7.2 g/dL (6.6-8.7)
[2024-04-16 16:25] LABS: Acetaminophen < 5.0 ug/mL (10-30); Alcohol Level < 10 mg/dL (0-10)
[2024-04-16 16:29] LABS: Amphetamines Screen Urine Positive (Negative); Barbiturates Screen Urine Negative (Negative); Benzodiazepines Screen Urine Positive (Negative); Cocaine Screen Urine Negative (Negative); Opiate Screen Urine Negative (Negative); PCP Screen Urine Negative (Negative); THC Screen Urine Positive (Negative)
[2024-04-16 17:16] VITALS: BP 148/87; PULSE 74; RESP 20; TEMP 37.1; O2SAT 97
[2024-04-16 18:00] VITALS: BP 132/98; PULSE 81; RESP 14; O2SAT 98
[2024-04-16 18:08] VITALS: BP 132/98; PULSE 81; RESP 14; TEMP 36.5; O2SAT 98
[2024-04-16] MEDS: acetaminophen 325 mg Tablet 650 MG PO (18:34)
[2024-04-16] MEDS: haloperidol 5 mg Tablet PO (18:34)
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
[2024-04-16 20:44] VITALS: BP 124/84; PULSE 64; RESP 18; TEMP 36.7; O2SAT 99
[2024-04-16] MEDS: hyDROXYzine 25 mg Capsule 50 MG PO (21:16)
[2024-04-16] MEDS: trazodone 50 mg Tablet PO (21:17)
[2024-04-17 06:00] VITALS: BP 128/64; PULSE 77; RESP 16; TEMP 36.8; O2SAT 95
[2024-04-17] MEDS: acetaminophen 325 mg Tablet 650 MG PO (07:25)
[2024-04-17] MEDS: metformin 500 mg Tablet PO (08:13)
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
--- NOTE | 2024-04-17 11:17 | PC.NURSE ---
During assessment, patient denies anxiety, depression, SI, HI, AVH. About on ehour later, patient came up to this nurse, stating that she is having thoughts of suicide. Patient stated that this happens sometimes. Patient denies any plan to act. This nurse offered to come sit with her in her room. Patient declined, stating that she wanted to let me know that at this moment she is having SI.
[2024-04-17] MEDS: fluoxetine 20 mg Capsule PO (13:36)
[2024-04-17 14:00] VITALS: BP 127/89; PULSE 81; RESP 18; TEMP 36.3; O2SAT 96
[2024-04-17] MEDS: BuSPIRONE 10 mg Tablet PO (17:17)
[2024-04-17 19:38] VITALS: BP 136/91; PULSE 84; RESP 17; TEMP 36.7; O2SAT 98
[2024-04-18 06:00] VITALS: BP 136/87; PULSE 76; RESP 18; TEMP 36.6; O2SAT 98
[2024-04-18] MEDS: fluoxetine 20 mg Capsule PO (07:54)
[2024-04-18] MEDS: metformin 500 mg Tablet PO (07:54)
[2024-04-18] MEDS: BuSPIRONE 10 mg Tablet PO ×2 (07:54→18:35)
--- NOTE | 2024-04-18 08:06 | PC.NURSE ---
During assessment, patient stated that she feels better today and that the buspirone was helpful. Patient said that she has thoughts in the back of my head of just getting a gun and killing myself. The reason is because the police have been harassing patient and patient is potentially going to become homeless on the third, per patient. Patient said she is open to going to a care home and seemed optimistic about this. This nurse talked with patient about the pros of care home life and about having the assistance of the case workers on Friday, who specialize in this area. Patient verbalized understanding. patient verbally contracted for safety.
[2024-04-18 14:00] VITALS: BP 146/95; PULSE 88; RESP 20; TEMP 36.6; O2SAT 97
[2024-04-18] MEDS: paliperidone ER 6 mg Tablet PO (15:32)
--- NOTE | 2024-04-18 17:16 | W.PM.NPUPNS ---
Subjective NPU Subjective: Patient presented today reporting that she was really upset at the police officers. A patient presented who had some issues with the police and the new patient with agitation got this patient for angry. We discussed the risks, benefits and alternatives of restarting her Invega and she understood and agreed to proceed as is documented in this note. She denied any side effects to the medication. Mental Status Exam MSE Comments: This is an obese versus morbidly obese white female in hospital scrubs with limited grooming and eye contact. No abnormal movements except for mild psychomotor retardation. Cooperative with exam in mild to moderate distress. Speech was normal rate and slightly decreased volume. Mood described as depressed and anxious, affect congruent and slightly subdued. Thought process linear. Thought content: Patient endorsed suicidal or but denied homicidal ideation, there were no delusions reported or noted, she denied auditory or visual hallucinations. The patient exhibits signs of severe depression and anxiety. He has reported suicidal thoughts following recent stressful events. He appears to be struggling with his current living situation and the lack of support. Attention and concentration were intact and memory was mostly reliable but none were formally tested. She is alert and oriented x 3. Insight and judgment are limited and impulse control is limited. Intellectual ability is limited versus impaired. Vitals/I&O/Wt Last Vital Signs Temp 97.8 F 04/18/24 14:00 Pulse 88 04/18/24 14:00 Resp 20 H 04/18/24 14:00 BP 146/95 04/18/24 14:00 Pulse Ox 97 04/18/24 14:00 O2 Del Method Room Air 04/18/24 14:00 Weight last 48 hrs Weight 114.305 kg Data NPU 04/16/24 15:57 04/16/24 15:57 A&P Assessment and plan (1) Paranoid reaction, acute: (2) Intellectual disability: (3) Depression: (4) Anxiety: (5) Methamphetamine use disorder, moderate, dependence: Plan This is a 38-year-old white female with a long history of mental health and addiction issues who was hospitalized earlier this year endorsing intellectual disability and being on disability since childhood with significant trauma especially in her youth who is now presenting with depression and anxiety after recently being left homeless. She has a history of paranoia and not being on medications for some time. There are concerns that her paranoia may be related to drug use and she presents today without note of psychosis even though she is not on medication. The patient is in a state of crisis due to his homelessness and the recent arrest. His mental health has deteriorated, with increased depression, anxiety, and suicidal ideation. He has not been taking his prescribed medication, which may be contributing to his current mental state. 1. Encourage individual, group and milieu therapy. 2. Recommend sober living treatment at the highest level of care to which the patient is willing to commit. 3. Continue q-15 minute checks for safety.? 4.? Restart medication including metformin and BuSpar at 10 mg p.o. twice daily. Add Prozac for depression and anxiety. Restart Invega 6 mg p.o. daily. 5.? Will attempt to gather collateral information. Involuntary Hold Information 96 Hour Hold: 96 Hour Involuntary Admission: No Attestations NPU Medical Necessity Statement*: Inpatient hospitalization is medically necessary and the clinically appropriate intervention at this time. We will monitor and adjust medications as indicated. Her likely length of stay 3-5 days. Coding Level of Care Code Acute Code for [facility] Fwd Diagnoses Paranoid reaction, acute F23 Intellectual disability F79 Depression F32.A Anxiety F41.9 Methamphetamine use disorder, moderate, dependence F15.20
[2024-04-18 21:48] VITALS: BP 131/83; PULSE 83; RESP 16; TEMP 36.6; O2SAT 97
[2024-04-19 06:00] VITALS: BP 135/86; PULSE 77; RESP 17; TEMP 36.8; O2SAT 96
--- NOTE | 2024-04-19 08:02 | PC.NURSE ---
PT SITTING ON BED. DENIES PAIN. DENIES SI/HI AND AVH AT THIS TIME. PT IS CALM AND COOPERATIVE. RATES ANXIETY AND DEPRESSION 0/10. PT IS NOTED TO HAVE A FLAT AFFECT. PT STATES GOAL FOR THE DAY IS TO TALK TO A LOG HANDLER SO I CAN WORK ON MY HOUSING SITUATION BECAUSE I'M HOMELESS RIGHT NOW. PT WAS INFORMED THAT THE SOCIAL WORKERS ARE HERE TODAY AND WILL SPEAK TO HER AT SOME POINT. ALL QUESTIONS ANSWERED AND SUPPORT WAS VOICED.
[2024-04-19] MEDS: metformin 500 mg Tablet PO (08:23)
[2024-04-19] MEDS: paliperidone ER 6 mg Tablet PO (08:23)
[2024-04-19] MEDS: BuSPIRONE 10 mg Tablet PO ×2 (08:23→21:21)
[2024-04-19] MEDS: fluoxetine 20 mg Capsule PO (08:23)
[2024-04-19] MEDS: hyDROXYzine 25 mg Capsule 50 MG PO (08:23)
--- NOTE | 2024-04-19 08:24 | PC.NURSE ---
Addendum entered by Lili Cantrell LPN 04/19/24 11:15: prn med effective no further c/o anxiety, currently attending group therapy Original Note: prn Vistaril 50 mg given po per pt c/o stated anxiety
[2024-04-19 14:00] VITALS: BP 124/81; PULSE 78; RESP 17; TEMP 36.7; O2SAT 96
--- NOTE | 2024-04-19 15:04 | P.NPUPN_ITS ---
Subjective NPU 2 Subjective: Patient presented today reporting that she is doing okay. She reports that she did have the opportunity to meet with her social services and that they are working on a couple/few options for treatment. She reports that they filled out a few intakes/required documents for some facilities. She reports an openness to except what ever resources are available to assist her in regaining her stability. She denied any side effects to the medication. Mental Status Exam 2 MSE Comments: This is an obese versus morbidly obese white female in hospital scrubs with limited grooming and eye contact. No abnormal movements except for mild psychomotor retardation. Cooperative with exam in mild to distress. Speech was normal rate and slightly decreased volume. Mood described as depressed and anxious, affect congruent and slightly subdued. Thought process linear. Thought content: Patient denied current suicidal or homicidal ideation, there were no delusions reported or noted, she denied auditory or visual hallucinations. The patient exhibits signs of severe depression and anxiety. He has reported suicidal thoughts following recent stressful events. He appears to be struggling with his current living situation and the lack of support. A ttention and concentration were intact and memory was mostly reliable but none were formally tested. She is alert and oriented x 3. Insight and judgment are limited and impulse control is limited. Intellectual ability is limited versus impaired. Vitals/I&O/Wt Last Vital Signs Temp 98.2 F 04/19/24 06:00 Pulse 77 04/19/24 06:00 Resp 17 04/19/24 06:00 BP 135/86 04/19/24 06:00 Pulse Ox 96 04/19/24 06:00 O2 Del Method Room Air 04/19/24 06:00 Weight last 48 hrs Weight 114.305 kg Data NPU 04/16/24 15:57 04/16/24 15:57 A&P Assessment and plan (1) Paranoid reaction, acute: (2) Intellectual disability: (3) Depression: (4) Anxiety: (5) Methamphetamine use disorder, moderate, dependence: Plan This is a 38-year-old white female with a long history of mental health and addiction issues who was hospitalized earlier this year endorsing intellectual disability and being on disability since childhood with significant trauma especially in her youth who is now presenting with depression and anxiety after recently being left homeless. She has a history of paranoia and not being on medications for some time. There are concerns that her paranoia may be related to drug use and she presents today without note of psychosis even though she is not on medication. The patient is in a state of crisis due to his homelessness and the recent arrest. His mental health has deteriorated, with increased depression, anxiety, and suicidal ideation. He has not been taking his prescribed medication, which may be contributing to his current mental state. 1. Encourage individual, group and milieu therapy. 2. Recommend sober living treatment at the highest level of care to which the patient is willing to commit. 3. Continue q-15 minute checks for safety.? 4.? Restarted medication including metformin and BuSpar at 10 mg p.o. twice daily. Added Prozac for depression and anxiety. Restarted Invega 6 mg p.o. daily. 5.? Will attempt to gather collateral information. Involuntary Hold Information 2 96 Hour Hold: 96 Hour Involuntary Admission: No Attestations NPU 2 Medical Necessity Statement*: Inpatient hospitalization is medically necessary and the clinically appropriate intervention at this time. We will monitor and adjust medications as indicated. Her likely length of stay 3-5 days. Coding Level of Care Code Acute Code for [facility] Fwd Diagnoses Paranoid reaction, acute F23 Intellectual disability F79 Depression F32.A Anxiety F41.9 Methamphetamine use disorder, moderate, dependence F15.20
[2024-04-19 21:39] VITALS: BP 141/92; PULSE 106; RESP 17; TEMP 36.8; O2SAT 97
[2024-04-20 06:00] VITALS: BP 107/68; PULSE 82; RESP 16; TEMP 36.8; O2SAT 95
[2024-04-20] MEDS: paliperidone ER 6 mg Tablet PO (08:19)
[2024-04-20] MEDS: fluoxetine 20 mg Capsule PO (08:19)
[2024-04-20] MEDS: BuSPIRONE 10 mg Tablet PO ×2 (08:19→21:21)
[2024-04-20] MEDS: metformin 500 mg Tablet PO (08:19)
[2024-04-20 14:00] VITALS: BP 126/82; PULSE 89; RESP 17; TEMP 36.3; O2SAT 97
--- NOTE | 2024-04-20 15:13 | P.NPUPN_ITS ---
Subjective NPU 2 Subjective: Patient presented today reporting that she is doing fine. She reports that she is aware that the SETH test was ordered and she was fine with that. She discussed a plan to go to one of the facilities that she and the social work team are working on. She denied any other issues and reports that she is adjusting to the medication denied any side effects to the medication. Mental Status Exam 2 MSE Comments: This is an obese versus morbidly obese white female in hospital scrubs with limited grooming and eye contact. No abnormal movements except for mild psychomotor retardation. Cooperative with exam in mild to distress. Speech was normal rate and slightly decreased volume. Mood described as depressed and anxious, affect congruent and slightly subdued. Thought process linear. Thought content: Patient denied current suicidal or homicidal ideation, there were no delusions reported or noted, she denied auditory or visual hallucinations. The patient exhibits signs of severe depression and anxiety. He has reported suicidal thoughts following recent stressful events. He appears to be struggling with his current living situation and the lack of support. A ttention and concentration were intact and memory was mostly reliable but none were formally tested. She is alert and oriented x 3. Insight and judgment are limited and impulse control is limited. Intellectual ability is limited versus impaired. Vitals/I&O/Wt Last Vital Signs Temp 97.3 F L 04/20/24 14:00 Pulse 89 04/20/24 14:00 Resp 17 04/20/24 14:00 BP 126/82 04/20/24 14:00 Pulse Ox 97 04/20/24 14:00 O2 Del Method Room Air 04/20/24 06:00 Data NPU 04/16/24 15:57 04/16/24 15:57 A&P Assessment and plan (1) Paranoid reaction, acute: (2) Intellectual disability: (3) Depression: (4) Anxiety: (5) Methamphetamine use disorder, moderate, dependence: Plan This is a 38-year-old white female with a long history of mental health and addiction issues who was hospitalized earlier this year endorsing intellectual disability and being on disability since childhood with significant trauma especially in her youth who is now presenting with depression and anxiety after recently being left homeless. She has a history of paranoia and not being on medications for some time. There are concerns that her paranoia may be related to drug use and she presents today without note of psychosis even though she is not on medication. The patient is in a state of crisis due to his homelessness and the recent arrest. His mental health has deteriorated, with increased depression, anxiety, and suicidal ideation. He has not been taking his prescribed medication, which may be contributing to his current mental state. 1. Encourage individual, group and milieu therapy. 2. Recommend sober living treatment at the highest level of care to which the patient is willing to commit. 3. Continue q-15 minute checks for safety.? 4.?Restarted medication including metformin and BuSpar at 10 mg p.o. twice daily. Added Prozac for depression and anxiety. Restarted Invega 6 mg p.o. daily. 5.?Will attempt to gather collateral information. We discussed getting a SETH examination to get an objective sense of her independent functioning given some of her oddities. Involuntary Hold Information 2 96 Hour Hold: 96 Hour Involuntary Admission: No Attestations NPU 2 Medical Necessity Statement*: Inpatient hospitalization is medically necessary and the clinically appropriate intervention at this time. We will monitor and adjust medications as indicated. Her likely length of stay 3-5 days. Coding Level of Care Code Acute Code for [facility] Fwd Diagnoses Paranoid reaction, acute F23 Intellectual disability F79 Depression F32.A Anxiety F41.9 Methamphetamine use disorder, moderate, dependence F15.20
[2024-04-20 20:37] VITALS: BP 126/86; PULSE 99; RESP 15; TEMP 36.8; O2SAT 98
[2024-04-21 06:00] VITALS: BP 92/55; PULSE 66; RESP 15; TEMP 36.9; O2SAT 94
[2024-04-21] MEDS: fluoxetine 20 mg Capsule PO (08:12)
[2024-04-21] MEDS: BuSPIRONE 10 mg Tablet PO ×2 (08:12→21:17)
[2024-04-21] MEDS: paliperidone ER 6 mg Tablet PO (08:12)
[2024-04-21] MEDS: metformin 500 mg Tablet PO (08:12)
--- NOTE | 2024-04-21 08:40 | PC.NURSE ---
PT UP IN ROOM MAKING HER BED. APPEARS TO BE IN GOOD SPIRITS TODAY. DENIES PAIN. DENIES SI/HI AND AVH AT THIS TIME. RATES ANXIETY AND DEPRESSION 0/10. PT STATES HER GOALS FOR THE DAY IS TO FIGURE OUT IF I GOT INTO SALUTES OR IF I'M GOING TO [facility] FOR RE[facility]. PT DOES GIVE INSIGHT TO RESOLVING HER ADDICTION ISSUES AND STATES SHE KNOWS SHE NEEDS HELP. RN ENCOURAGED PT TO ATTEND GROUPS AND CONTINUE TO INTERACT WITH PEERS AND STAFF. PT REPORTS SHE SLEPT WELL LAST NIGHT AND SHE IS NOT HAVING ANY ADVERSE REACTIONS FROM HER MEDICATIONS AND FEELS THEY ARE WORKING WELL SO FAR. ALL QUESTIONS ANSWERED AND SUPPORT WAS VOICED.
[2024-04-21 14:00] VITALS: BP 107/78; PULSE 88; RESP 17; TEMP 36.7; O2SAT 96
--- NOTE | 2024-04-21 16:06 | W.PM.NPUPNS ---
Subjective NPU Subjective: Patient presented today reporting she is doing okay. She reports continuing to work with the social work team for appropriate placement and options for treatment with consideration for residential services. The [facility] program was contacted and patient was happy to hear that they were considering excepting her. She identified that she has a bed date at [facility] but it is a couple weeks away. She reports she is adjusting to the medication and denied any side effects. We discussed trying to identify an option for residential services while she awaits the rehab bed. Mental Status Exam MSE Comments: This is an obese versus morbidly obese white female in hospital scrubs with limited grooming and eye contact. No abnormal movements except for mild psychomotor retardation. Cooperative with exam in mild distress. Speech was normal rate and slightly decreased volume. Mood described as maybe a little better, affect congruent and slightly less subdued. Thought process linear. Thought content: Patient denied current suicidal or homicidal ideation, there were no delusions reported or noted, she denied auditory or visual hallucinations. The patient exhibits signs of severe depression and anxiety. He has reported suicidal thoughts following recent stressful events. He appears to be struggling with his current living situation and the lack of support. Attention and concentration were intact and memory was mostly reliable but none were formally tested. She is alert and oriented x 3. Insight and judgment are limited and impulse control is limited. Intellectual ability is limited versus impaired. Vitals/I&O/Wt Last Vital Signs Temp 98.0 F 04/21/24 14:00 Pulse 88 04/21/24 14:00 Resp 17 04/21/24 14:00 BP 107/78 04/21/24 14:00 Pulse Ox 96 04/21/24 14:00 O2 Del Method Room Air 04/21/24 06:00 Data NPU 04/16/24 15:57 04/16/24 15:57 A&P Assessment and plan (1) Paranoid reaction, acute: (2) Intellectual disability: (3) Depression: (4) Anxiety: (5) Methamphetamine use disorder, moderate, dependence: Plan This is a 38-year-old white female with a long history of mental health and addiction issues who was hospitalized earlier this year endorsing intellectual disability and being on disability since childhood with significant trauma especially in her youth who is now presenting with depression and anxiety after recently being left homeless. She has a history of paranoia and not being on medications for some time. There are concerns that her paranoia may be related to drug use and she presents today without note of psychosis even though she is not on medication. The patient is in a state of crisis due to his homelessness and the recent arrest. His mental health has deteriorated, with increased depression, anxiety, and suicidal ideation. He has not been taking his prescribed medication, which may be contributing to his current mental state. 1. Encourage individual, group and milieu therapy. 2. Recommend sober living treatment at the highest level of care to which the patient is willing to commit. 3. Continue q-15 minute checks for safety.? 4.?Restarted medication including metformin and BuSpar at 10 mg p.o. twice daily. Added Prozac for depression and anxiety. Restarted Invega 6 mg p.o. daily. 5.?Will attempt to gather collateral information. SETH examination with no glaring deficit that would preclude her going to treatment or exploring independent living. [facility] was contacted and will evaluate her for acceptance into their program. Involuntary Hold Information 96 Hour Hold: 96 Hour Involuntary Admission: No Attestations NPU Medical Necessity Statement*: Inpatient hospitalization is medically necessary and the clinically appropriate intervention at this time. We will monitor and adjust medications as indicated. Her likely length of stay 2-4 days. Coding Level of Care Code Acute Code for [facility] Fwd Diagnoses Paranoid reaction, acute F23 Intellectual disability F79 Depression F32.A Anxiety F41.9 Methamphetamine use disorder, moderate, dependence F15.20
[2024-04-21 19:35] VITALS: BP 95/56; PULSE 82; RESP 17; TEMP 37; O2SAT 96
[2024-04-21] MEDS: hyDROXYzine 25 mg Capsule 50 MG PO (21:18)
[2024-04-22 06:00] VITALS: BP 110/70; PULSE 64; RESP 18; TEMP 36.8; O2SAT 96
[2024-04-22] MEDS: paliperidone ER 6 mg Tablet PO (08:14)
[2024-04-22] MEDS: metformin 500 mg Tablet PO (08:14)
[2024-04-22] MEDS: BuSPIRONE 10 mg Tablet PO ×2 (08:14→21:37)
[2024-04-22] MEDS: acetaminophen 325 mg Tablet 650 MG PO (08:15)
[2024-04-22] MEDS: fluoxetine 20 mg Capsule PO (08:15)
--- NOTE | 2024-04-22 09:01 | PC.NURSE ---
UP WALKING HALLS. PT IS IN GOOD SPIRITS THIS AM. DENIES SI/HI AND AVH AT THIS TIME. RATES BACK PAIN 05/15, MED NURSE TO GIVE TYLENOL ORDERED FOR PAIN. RATES ANXIETY AND DEPRESSION 0/10. PT STATES SHE IS WAITING TO HEAR BACK FROM SALUTES TO SEE IF SHE GOT IN YET. PT ALSO HAS A BED DATE FOR [facility] FOR 05/06/24. PT GOAL FOR THE DAY IS TO FIND OUT ABOUT SALUTES AND WHEN I'M LEAVING. PT REPORTS SHE SLEPT WELL LAST NIGHT. ALL QUESTIONS ANSWERED AND SUPPORT VOICED.
[2024-04-22 14:00] VITALS: BP 121/83; PULSE 86; RESP 16; TEMP 36.3; O2SAT 96
--- NOTE | 2024-04-22 14:36 | P.NPUPN_ITS ---
Subjective NPU 2 Subjective: Patient presented today reporting she is doing fine. She continues to work with the social work team for appropriate placement and options for treatment with consideration for residential services. The [facility] program was contacted and patient was happy to hear that and they are scheduled to come interview her. She identified that she has a bed date at [facility] but it is about 2 weeks away. She reports she is adjusting to the medication and denied any side effects. Mental Status Exam 2 MSE Comments: This is an obese versus morbidly obese white female in hospital scrubs with limited grooming and eye contact. No abnormal movements except for mild psychomotor retardation. Cooperative with exam in mild distress. Speech was normal rate and slightly decreased volume. Mood described as a little better, affect congruent and slightly less subdued. Thought process linear. Thought content: Patient denied current suicidal or homicidal ideation, there were no delusions reported or noted, she denied auditory or visual hallucinations. The patient exhibits signs of severe depression and anxiety. He has reported suicidal thoughts following recent stressful events. He appears to be struggling with his current living situation and the lack of support. Attention and concentration were intact and memory was mostly reliable but none were formally tested. She is alert and oriented x 3. Insight and judgment are limited and impulse control is limited. Intellectual ability is limited versus impaired. Vitals/I&O/Wt Last Vital Signs Temp 98.2 F 04/22/24 06:00 Pulse 64 04/22/24 06:00 Resp 18 04/22/24 06:00 BP 110/70 04/22/24 06:00 Pulse Ox 96 04/22/24 06:00 O2 Del Method Room Air 04/22/24 06:00 Data NPU 04/16/24 15:57 04/16/24 15:57 A&P Assessment and plan (1) Paranoid reaction, acute: (2) Intellectual disability: (3) Depression: (4) Anxiety: (5) Methamphetamine use disorder, moderate, dependence: Plan This is a 38-year-old white female with a long history of mental health and addiction issues who was hospitalized earlier this year endorsing intellectual disability and being on disability since childhood with significant trauma especially in her youth who is now presenting with depression and anxiety after recently being left homeless. She has a history of paranoia and not being on medications for some time. There are concerns that her paranoia may be related to drug use and she presents today without note of psychosis even though she is not on medication. The patient is in a state of crisis due to his homelessness and the recent arrest. His mental health has deteriorated, with increased depression, anxiety, and suicidal ideation. He has not been taking his prescribed medication, which may be contributing to his current mental state. 1. Encourage individual, group and milieu therapy. 2. Recommend sober living treatment at the highest level of care to which the patient is willing to commit. 3. Continue q-15 minute checks for safety.? 4.?Restarted medication including metformin and BuSpar at 10 mg p.o. twice daily. Added Prozac for depression and anxiety. Restarted Invega 6 mg p.o. daily. 5.?Will attempt to gather collateral information. SETH examination with no glaring deficit that would preclude her going to treatment or exploring independent living. [facility] was contacted and will evaluate her for acceptance into their program. There are a few leads on placement. Involuntary Hold Information 2 96 Hour Hold: 96 Hour Involuntary Admission: No Attestations NPU 2 Medical Necessity Statement*: Inpatient hospitalization is medically necessary and the clinically appropriate intervention at this time. We will monitor and adjust medications as indicated. Her likely length of stay 2-4 days. Coding Level of Care Code Acute Code for [facility] Fwd Diagnoses Paranoid reaction, acute F23 Intellectual disability F79 Depression F32.A Anxiety F41.9 Methamphetamine use disorder, moderate, dependence F15.20
[2024-04-22 21:03] VITALS: BP 108/88; PULSE 84; RESP 17; TEMP 36.9; O2SAT 95
[2024-04-22] MEDS: hyDROXYzine 25 mg Capsule 50 MG PO (21:37)
[2024-04-22] MEDS: trazodone 50 mg Tablet PO (21:37)
[2024-04-23 06:00] VITALS: BP 106/67; PULSE 57; RESP 17; TEMP 36.8; O2SAT 96
[2024-04-23] MEDS: paliperidone ER 6 mg Tablet PO (08:15)
[2024-04-23] MEDS: metformin 500 mg Tablet PO (08:15)
[2024-04-23] MEDS: BuSPIRONE 10 mg Tablet PO ×2 (08:15→21:32)
[2024-04-23] MEDS: fluoxetine 20 mg Capsule PO (08:15)
[2024-04-23 14:00] VITALS: BP 122/84; PULSE 107; RESP 18; TEMP 36.6; O2SAT 98
--- NOTE | 2024-04-23 15:43 | P.NPUPN_ITS ---
Subjective NPU 2 Subjective: Patient presents today reporting that she is doing okay. She has been hopeful that [facility] would except her allowing her to stay there until her bed date 05/06/2024 at [facility]. However [facility] did decline taking her and so we discussed planning on exploring discharge possibilities on Friday when she will be 9 days away from her bed date. She reports she is adjusting to the resumption of her medications and denied any side effects from her medications. Mental Status Exam 2 MSE Comments: This is an obese versus morbidly obese white female in hospital scrubs with limited grooming and eye contact. No abnormal movements except for mild psychomotor retardation. Cooperative with exam in mild distress. Speech was normal rate and slightly decreased volume. Mood described as a little better, affect congruent and slightly less subdued. Thought process linear. Thought content: Patient denied current suicidal or homicidal ideation, there were no delusions reported or noted, she denied auditory or visual hallucinations. The patient exhibits signs of severe depression and anxiety. He has reported suicidal thoughts following recent stressful events. He appears to be struggling with his current living situation and the lack of support. Attention and concentration were intact and memory was mostly reliable but none were formally tested. She is alert and oriented x 3. Insight and judgment are limited and impulse control is limited. Intellectual ability is limited versus impaired. Vitals/I&O/Wt Last Vital Signs Temp 98.3 F 04/23/24 06:00 Pulse 57 L 04/23/24 06:00 Resp 17 04/23/24 06:00 BP 106/67 04/23/24 06:00 Pulse Ox 96 04/23/24 06:00 O2 Del Method Room Air 04/23/24 06:00 Data NPU 04/16/24 15:57 04/16/24 15:57 A&P Assessment and plan (1) Paranoid reaction, acute: (2) Intellectual disability: (3) Depression: (4) Anxiety: (5) Methamphetamine use disorder, moderate, dependence: Plan This is a 38-year-old white female with a long history of mental health and addiction issues who was hospitalized earlier this year endorsing intellectual disability and being on disability since childhood with significant trauma especially in her youth who is now presenting with depression and anxiety after recently being left homeless. She has a history of paranoia and not being on medications for some time. There are concerns that her paranoia may be related to drug use and she presents today without note of psychosis even though she is not on medication. The patient is in a state of crisis due to his homelessness and the recent arrest. His mental health has deteriorated, with increased depression, anxiety, and suicidal ideation. He has not been taking his prescribed medication, which may be contributing to his current mental state. 1. Encourage individual, group and milieu therapy. 2. Recommend sober living treatment at the highest level of care to which the patient is willing to commit. 3. Continue q-15 minute checks for safety.? 4.?Restarted medication including metformin and BuSpar at 10 mg p.o. twice daily. Added Prozac for depression and anxiety. Restarted Invega 6 mg p.o. daily. 5.?Will attempt to gather collateral information. SETH examination with no glaring deficit that would preclude her going to treatment or exploring independent living. [facility] program was contacted and will evaluate her for acceptance into their program. There are a few leads on placement. But [facility] did refuse her today and we discussed looking at what possibilities remain on Friday. Involuntary Hold Information 2 96 Hour Hold: 96 Hour Involuntary Admission: No Attestations NPU 2 Medical Necessity Statement*: Inpatient hospitalization is medically necessary and the clinically appropriate intervention at this time. We will monitor and adjust medications as indicated. Her likely length of stay 3-4 days. Coding Level of Care Code Acute Code for [facility] Fwd Diagnoses Paranoid reaction, acute F23 Intellectual disability F79 Depression F32.A Anxiety F41.9 Methamphetamine use disorder, moderate, dependence F15.20
[2024-04-23] MEDS: trazodone 50 mg Tablet PO (21:32)
[2024-04-23] MEDS: hyDROXYzine 25 mg Capsule 50 MG PO (21:33)
[2024-04-23 21:37] VITALS: BP 127/62; PULSE 85; RESP 17; TEMP 37.1; O2SAT 98
[2024-04-24 06:00] VITALS: BP 131/84; PULSE 99; RESP 18; TEMP 36.7; O2SAT 95
[2024-04-24] MEDS: metformin 500 mg Tablet PO (08:07)
[2024-04-24] MEDS: fluoxetine 20 mg Capsule PO (08:08)
[2024-04-24] MEDS: paliperidone ER 6 mg Tablet PO (08:08)
[2024-04-24] MEDS: BuSPIRONE 10 mg Tablet PO ×2 (08:08→20:20)
--- NOTE | 2024-04-24 08:51 | PC.NURSE ---
PT CURRENTLY DENIES SI/HI/AH/VH. PT CURRENTLY DENIES ANXIETY AND DEPRESSION. PT IS CURRENTLY CONCERNED WITH PAYING HER BILLS PRIOR TO GOING TO REHAB AT DISCHARGE. THIS NURSE EXPLAINED THAT SHE WOULD NEED TO SPEAK WITH THE [employer] AND/OR THE PHYSICIAN ABOUT EITHER DISCHARGE DATE OR IF HER REHAB CENTER WILL ASSIST IN HER GETTING HER BILLS PAID ON TIME. PT WAS COOPERATIVE WITH ASSESSMENT. PT CURRENT NEEDS ARE MET AT THIS TIME.
[2024-04-24 14:00] VITALS: BP 116/74; PULSE 76; RESP 16; TEMP 36.7; O2SAT 96
--- NOTE | 2024-04-24 14:20 | P.NPUPN_ITS ---
Subjective NPU 2 Subjective: Patient presented today reporting that she is feeling all right. She endorsed having concerns about making sure her bills are paid while she is in rehab. We discussed that the home health care case manager is here as well as the ones that rehab will help navigate some of the logistical challenges of being away from your home for a prolonged period of time. She denied any issues with the medication thus far. We discussed working with the social work team on Friday or possible alternatives for residential living given that she was refused by [facility]. She believes she may have a support that might allow her to stay until her bed date on 05/06/2024. Mental Status Exam 2 MSE Comments: This is an obese versus morbidly obese white female in hospital scrubs with limited grooming and eye contact. No abnormal movements except for mild psychomotor retardation. Cooperative with exam in mild distress. Speech was normal rate and slightly decreased volume. Mood described as a little better, affect congruent and slightly less subdued. Thought process linear. Thought content: Patient denied current suicidal or homicidal ideation, there were no delusions reported or noted, she denied auditory or visual hallucinations. The patient exhibits signs of severe depression and anxiety. He has reported suicidal thoughts following recent stressful events. He appears to be struggling with his current living situation and the lack of support. Attention and concentration were intact and memory was mostly reliable but none were formally tested. She is alert and oriented x 3. Insight and judgment are limited and impulse control is limited. Intellectual ability is limited versus impaired. Vitals/I&O/Wt Last Vital Signs Temp 98.1 F 04/24/24 06:00 Pulse 99 04/24/24 06:00 Resp 18 04/24/24 06:00 BP 131/84 04/24/24 06:00 Pulse Ox 95 04/24/24 06:00 O2 Del Method Room Air 04/24/24 06:00 Data NPU 04/16/24 15:57 04/16/24 15:57 A&P Assessment and plan (1) Paranoid reaction, acute: (2) Intellectual disability: (3) Depression: (4) Anxiety: (5) Methamphetamine use disorder, moderate, dependence: Plan This is a 38-year-old white female with a long history of mental health and addiction issues who was hospitalized earlier this year endorsing intellectual disability and being on disability since childhood with significant trauma especially in her youth who is now presenting with depression and anxiety after recently being left homeless. She has a history of paranoia and not being on medications for some time. There are concerns that her paranoia may be related to drug use and she presents today without note of psychosis even though she is not on medication. The patient is in a state of crisis due to his homelessness and the recent arrest. His mental health has deteriorated, with increased depression, anxiety, and suicidal ideation. He has not been taking his prescribed medication, which may be contributing to his current mental state. 1. Encourage individual, group and milieu therapy. 2. Recommend sober living treatment at the highest level of care to which the patient is willing to commit. 3. Continue q-15 minute checks for safety.? 4.?Restarted medication including metformin and BuSpar at 10 mg p.o. twice daily. Added Prozac for depression and anxiety. Restarted Invega 6 mg p.o. daily. 5.?Will attempt to gather collateral information. SETH examination with no glaring deficit that would preclude her going to treatment or exploring independent living. [facility] program was contacted and will evaluate her for acceptance into their program. There are a few leads on placement. But [facility] did refuse her today and we discussed looking at what possibilities remain on Friday. Involuntary Hold Information 2 96 Hour Hold: 96 Hour Involuntary Admission: No Attestations NPU 2 Medical Necessity Statement*: Inpatient hospitalization is medically necessary and the clinically appropriate intervention at this time. We will monitor and adjust medications as indicated. Her likely length of stay 3-4days. Coding Level of Care Code Acute Code for [facility] Fw Diagnoses Paranoid reaction, acute F23 Intellectual disability F79 Depression F32.A Anxiety F41.9 Methamphetamine use disorder, moderate, dependence F15.20
[2024-04-24 20:38] VITALS: BP 104/64; PULSE 85; RESP 18; TEMP 36.6; O2SAT 95
[2024-04-25 06:00] VITALS: BP 108/78; PULSE 109; RESP 18; TEMP 36.6; O2SAT 96
[2024-04-25] MEDS: paliperidone ER 6 mg Tablet PO (08:00)
[2024-04-25] MEDS: metformin 500 mg Tablet PO (08:00)
[2024-04-25] MEDS: BuSPIRONE 10 mg Tablet PO ×2 (08:00→20:15)
[2024-04-25] MEDS: fluoxetine 20 mg Capsule PO (08:00)
[2024-04-25 14:00] VITALS: BP 121/56; PULSE 90; RESP 17; TEMP 36.5; O2SAT 98
--- NOTE | 2024-04-25 14:27 | W.PM.NPUPNS ---
Subjective NPU Subjective: Patient presented today reporting that she is doing okay. She is focused on getting to rehab on May 06 and endorsed looking forward to her recovery and treatment. She also was very aware that it is unlikely she will be here until that date so was focused on where she might be able to go for what ever days there are after she is discharged. We discussed the fact that the social work team will be back tomorrow and they would be able to work with her on any logistic issues and we discussed the possibility of making a decision about discharge after they have identify what current resources exist. She denied any side effects to the medication. Mental Status Exam MSE Comments: This is an obese versus morbidly obese white female in hospital scrubs with limited grooming and eye contact. No abnormal movements except for mild psychomotor retardation. Cooperative with exam in mild distress. Speech was normal rate and slightly decreased volume. Mood described as a little better, affect congruent and slightly less subdued. Thought process linear. Thought content: Patient denied current suicidal or homicidal ideation, there were no delusions reported or noted, she denied auditory or visual hallucinations. The patient exhibits signs of severe depression and anxiety. He has reported suicidal thoughts following recent stressful events. He appears to be struggling with his current living situation and the lack of support. Attention and concentration were intact and memory was mostly reliable but none were formally tested. She is alert and oriented x 3. Insight and judgment are limited and impulse control is limited. Intellectual ability is limited versus impaired. Vitals/I&O/Wt Last Vital Signs Temp 98 F 04/25/24 06:00 Pulse 109 H 04/25/24 06:00 Resp 18 04/25/24 06:00 BP 108/78 04/25/24 06:00 Pulse Ox 96 04/25/24 06:00 O2 Del Method Room Air 04/25/24 06:00 Weight last 48 hrs Weight 127.641 kg Data NPU 04/16/24 15:57 04/16/24 15:57 A&P Assessment and plan (1) Paranoid reaction, acute: (2) Intellectual disability: (3) Depression: (4) Anxiety: (5) Methamphetamine use disorder, moderate, dependence: Plan This is a 38-year-old white female with a long history of mental health and addiction issues who was hospitalized earlier this year endorsing intellectual disability and being on disability since childhood with significant trauma especially in her youth who is now presenting with depression and anxiety after recently being left homeless. She has a history of paranoia and not being on medications for some time. There are concerns that her paranoia may be related to drug use and she presents today without note of psychosis even though she is not on medication. The patient is in a state of crisis due to his homelessness and the recent arrest. His mental health has deteriorated, with increased depression, anxiety, and suicidal ideation. He has not been taking his prescribed medication, which may be contributing to his current mental state. 1. Encourage individual, group and milieu therapy. 2. Recommend sober living treatment at the highest level of care to which the patient is willing to commit. 3. Continue q-15 minute checks for safety.? 4.?Restarted medication including metformin and BuSpar at 10 mg p.o. twice daily. Added Prozac for depression and anxiety. Restarted Invega 6 mg p.o. daily. 5.?Will attempt to gather collateral information. SETH examination with no glaring deficit that would preclude her going to treatment or exploring independent living. [facility] program was contacted and will evaluate her for acceptance into their program. There are a few leads on placement. But [facility] did refuse her today and we discussed looking at what possibilities remain on Friday. Involuntary Hold Information 96 Hour Hold: 96 Hour Involuntary Admission: No Attestations NPU Medical Necessity Statement*: Inpatient hospitalization is medically necessary and the clinically appropriate intervention at this time. We will monitor and adjust medications as indicated. Her likely length of stay 1-3 days. Coding Level of Care Code Acute Code for [facility] Fw Diagnoses Paranoid reaction, acute F23 Intellectual disability F79 Depression F32.A Anxiety F41.9 Methamphetamine use disorder, moderate, dependence F15.20
[2024-04-25 19:57] VITALS: BP 120/60; PULSE 76; RESP 16; O2SAT 96
[2024-04-25] MEDS: trazodone 50 mg Tablet PO (20:15)
[2024-04-26 06:00] VITALS: BP 100/66; PULSE 72; RESP 16; TEMP 36.8; O2SAT 95
[2024-04-26] MEDS: metformin 500 mg Tablet PO (08:20)
[2024-04-26] MEDS: paliperidone ER 6 mg Tablet PO (08:20)
[2024-04-26] MEDS: fluoxetine 20 mg Capsule PO (08:20)
[2024-04-26] MEDS: BuSPIRONE 10 mg Tablet PO ×2 (08:20→19:11)
--- NOTE | 2024-04-26 13:48 | P.NPUPN_ITS ---
Subjective NPU 2 Subjective: Patient presents today reporting that she is feeling okay. She reports no problems or concerns and had excepted that [facility] is not planning on taking her. She reports that she is doing fine and is looking forward to going to [facility] in 11 days. She reports that she can go to a friend's house until her bed date, however that may be some money she met while she was in the hospital. She reports that she has no resources. Reports she has no supports. She denies any side effects of the medication. Mental Status Exam 2 MSE Comments: This is an obese versus morbidly obese white female in hospital scrubs with limited grooming and eye contact. No abnormal movements except for mild psychomotor retardation. Cooperative with exam in mild distress. Speech was normal rate and slightly decreased volume. Mood described as a little better, affect congruent and slightly less subdued. Thought process linear. Thought content: Patient denied current suicidal or homicidal ideation, there were no delusions reported or noted, she denied auditory or visual hallucinations. The patient exhibits signs of severe depression and anxiety. He has reported suicidal thoughts following recent stressful events. He appears to be struggling with his current living situation and the lack of support. Attention and concentration were intact and memory was mostly reliable but none were formally tested. She is alert and oriented x 3. Insight and judgment are limited and impulse control is limited. Intellectual ability is limited versus impaired. Vitals/I&O/Wt Last Vital Signs Temp 98.2 F 04/26/24 06:00 Pulse 72 04/26/24 06:00 Resp 16 04/26/24 06:00 BP 100/66 04/26/24 06:00 Pulse Ox 95 04/26/24 06:00 O2 Del Method Room Air 04/25/24 06:00 Weight last 48 hrs Weight 127.641 kg Data NPU 04/16/24 15:57 04/16/24 15:57 A&P Assessment and plan (1) Paranoid reaction, acute: (2) Intellectual disability: (3) Depression: (4) Anxiety: (5) Methamphetamine use disorder, moderate, dependence: Plan This is a 38-year-old white female with a long history of mental health and addiction issues who was hospitalized earlier this year endorsing intellectual disability and being on disability since childhood with significant trauma especially in her youth who is now presenting with depression and anxiety after recently being left homeless. She has a history of paranoia and not being on medications for some time. There are concerns that her paranoia may be related to drug use and she presents today without note of psychosis even though she is not on medication. The patient is in a state of crisis due to his homelessness and the recent arrest. His mental health has deteriorated, with increased depression, anxiety, and suicidal ideation. He has not been taking his prescribed medication, which may be contributing to his current mental state. 1. Encourage individual, group and milieu therapy. 2. Recommend sober living treatment at the highest level of care to which the patient is willing to commit. 3. Continue q-15 minute checks for safety.? 4.?Restarted medication including metformin and BuSpar at 10 mg p.o. twice daily. Added Prozac for depression and anxiety. Restarted Invega 6 mg p.o. daily. 5.?Will attempt to gather collateral information. SETH examination with no glaring deficit that would preclude her going to treatment or exploring independent living. [facility] program was contacted and will evaluate her for acceptance into their program. There are a few leads on placement. But [facility] did refuse her today and we discussed looking at what possibilities remain on Friday. Involuntary Hold Information 2 96 Hour Hold: 96 Hour Involuntary Admission: No Attestations NPU 2 Medical Necessity Statement*: Inpatient hospitalization is medically necessary and the clinically appropriate intervention at this time. We will monitor and adjust medications as indicated. Her likely length of stay 1-3 days. Coding Level of Care Code Acute Code for [facility] Fwd Diagnoses Paranoid reaction, acute F23 Intellectual disability F79 Depression F32.A Anxiety F41.9 Methamphetamine use disorder, moderate, dependence F15.20
[2024-04-26 14:00] VITALS: BP 120/74; PULSE 73; RESP 16; TEMP 36.6; O2SAT 98
[2024-04-26] MEDS: trazodone 50 mg Tablet PO (19:11)
[2024-04-26 21:21] VITALS: BP 132/85; PULSE 77; RESP 18; TEMP 36.8; O2SAT 96
[2024-04-27 06:00] VITALS: BP 124/79; PULSE 61; RESP 18; TEMP 36.6; O2SAT 95
[2024-04-27] MEDS: BuSPIRONE 10 mg Tablet PO ×2 (08:16→20:09)
[2024-04-27] MEDS: paliperidone ER 6 mg Tablet PO (08:16)
[2024-04-27] MEDS: metformin 500 mg Tablet PO (08:16)
[2024-04-27] MEDS: fluoxetine 20 mg Capsule PO (08:16)
--- NOTE | 2024-04-27 10:55 | P.NPUPN_ITS ---
Subjective NPU 2 Subjective: Patient presented today reporting that she is doing fine. She reports wanting to getting out of the hospital to take care of some things sooner rather than later. We discussed the likelihood of discharge tomorrow if we are able to make appropriate arrangements for residential existence prior to her bed date at [facility] on May 06. She denied any side effects to the medication. Mental Status Exam 2 MSE Comments: This is an obese versus morbidly obese white female in hospital scrubs with limited grooming and eye contact. No abnormal movements except for mild psychomotor retardation. Cooperative with exam in mild distress. Speech was normal rate and slightly decreased volume. Mood described as a little better, affect congruent and slightly less subdued. Thought process linear. Thought content: Patient denied current suicidal or homicidal ideation, there were no delusions reported or noted, she denied auditory or visual hallucinations. The patient exhibits signs of severe depression and anxiety. He has reported suicidal thoughts following recent stressful events. He appears to be struggling with his current living situation and the lack of support. Attention and concentration were intact and memory was mostly reliable but none were formally tested. She is alert and oriented x 3. Insight and judgment are limited and impulse control is limited. Intellectual ability is limited versus impaired. Vitals/I&O/Wt Last Vital Signs Temp 98 F 04/27/24 06:00 Pulse 61 04/27/24 06:00 Resp 18 04/27/24 06:00 BP 124/79 04/27/24 06:00 Pulse Ox 95 04/27/24 06:00 O2 Del Method Room Air 04/27/24 06:00 Data NPU 04/16/24 15:57 04/16/24 15:57 A&P Assessment and plan (1) Paranoid reaction, acute: (2) Intellectual disability: (3) Depression: (4) Anxiety: (5) Methamphetamine use disorder, moderate, dependence: Plan This is a 38-year-old white female with a long history of mental health and addiction issues who was hospitalized earlier this year endorsing intellectual disability and being on disability since childhood with significant trauma especially in her youth who is now presenting with depression and anxiety after recently being left homeless. She has a history of paranoia and not being on medications for some time. There are concerns that her paranoia may be related to drug use and she presents today without note of psychosis even though she is not on medication. The patient is in a state of crisis due to his homelessness and the recent arrest. His mental health has deteriorated, with increased depression, anxiety, and suicidal ideation. He has not been taking his prescribed medication, which may be contributing to his current mental state. 1. Encourage individual, group and milieu therapy. 2. Recommend sober living treatment at the highest level of care to which the patient is willing to commit. 3. Continue q-15 minute checks for safety.? 4.?Restarted medication including metformin and BuSpar at 10 mg p.o. twice daily. Added Prozac for depression and anxiety. Restarted Invega 6 mg p.o. daily. 5.?Will attempt to gather collateral information. SETH examination with no glaring deficit that would preclude her going to treatment or exploring independent living. [facility] program was contacted and will evaluate her for acceptance into their program. There are a few leads on placement. But [facility] did refuse her today and we discussed looking at what possibilities remain. Likely plan for discharge tomorrow. Involuntary Hold Information 2 96 Hour Hold: 96 Hour Involuntary Admission: No Attestations NPU 2 Medical Necessity Statement*: Inpatient hospitalization is medically necessary and the clinically appropriate intervention at this time. We will monitor and adjust medications as indicated. Her likely length of stay 1-2 days. Coding Level of Care Code Acute Code for [facility] Fwd Diagnoses Paranoid reaction, acute F23 Intellectual disability F79 Depression F32.A Anxiety F41.9 Methamphetamine use disorder, moderate, dependence F15.20
[2024-04-27 13:29] VITALS: BP 125/80; PULSE 89; RESP 17; TEMP 36.6; O2SAT 97
[2024-04-27] MEDS: acetaminophen 325 mg Tablet 650 MG PO (16:49)
[2024-04-27 19:50] VITALS: BP 132/87; PULSE 70; RESP 18; TEMP 36.7; O2SAT 99
[2024-04-27] MEDS: trazodone 50 mg Tablet PO (20:09)
[2024-04-28 06:00] VITALS: BP 96/59; PULSE 68; RESP 14; O2SAT 96
[2024-04-28] MEDS: paliperidone ER 6 mg Tablet PO (07:47)
[2024-04-28] MEDS: fluoxetine 20 mg Capsule PO (07:47)
[2024-04-28] MEDS: metformin 500 mg Tablet PO (07:47)
[2024-04-28] MEDS: BuSPIRONE 10 mg Tablet PO (07:47)
--- NOTE | 2024-04-28 12:54 | DCPLANNER ---
Imm was printed and rights explained to pt and copy placed in pts file.
--- NOTE | 2024-04-28 13:04 | W.PM.NPUDCS ---
Diagnoses at Discharge Discharge Diagnosis (1) Paranoid reaction, acute: Status: Resolved (2) Intellectual disability: Status: Acute (3) Depression: Status: Acute (4) Anxiety: Status: Acute (5) Methamphetamine use disorder, moderate, dependence: Status: Acute Reason for Visit Reason for Visit: si Involuntary Hold Information 96 Hour Hold: 96 Hour Involuntary Admission: No Mental Status Exam MSE Comments: This is an obese versus morbidly obese white female in hospital scrubs with limited grooming and eye contact. No abnormal movements except for mild psychomotor retardation. Cooperative with exam in mild distress. Speech was normal rate and slightly decreased volume. Mood described as a little better, affect congruent and slightly less subdued. Thought process linear. Thought content: Patient denied current suicidal or homicidal ideation, there were no delusions reported or noted, she denied auditory or visual hallucinations. The patient exhibits signs of severe depression and anxiety. He has reported suicidal thoughts following recent stressful events. He appears to be struggling with his current living situation and the lack of support. Attention and concentration were intact and memory was mostly reliable but none were formally tested. She is alert and oriented x 3. Insight and judgment are limited and impulse control is limited. Intellectual ability is limited versus impaired. Discharge Data Studies Completed and Pending: Laboratory Results WBC 15.21 10^3/uL (3. 29-11.43) H 04/16/24 15:57 RBC 4.71 10^6/uL (3.8 5-5.65) 04/16/24 15:57 Hgb 14.70 g/dL (11.27 -16.99) 04/16/24 15:57 Hct 42.6 % (36-47) 04/16/24 15:57 MCV 90.4 fl (85-98) 04/16/24 15:57 MCH 31.2 pg (27-33) 04/16/24 15:57 MCHC 34.5 g/dL (30-55) 04/16/24 15:57 RDW 12.9 % (12.1-15.1 ) 04/16/24 15:57 Plt Count 245 10^3/cmm (157 -399) 04/16/24 15:57 MPV 11.1 fL (7.4-10.4 ) H 04/16/24 15:57 Neut % (Auto) 75.4 % 04/16/24 15:57 Lymph % (Auto) 17.4 % 04/16/24 15:57 [place] % (Auto) 6.0 % 04/16/24 15:57 Eos % (Auto) 0.5 % 04/16/24 15:57 Baso % (Auto) 0.5 % 04/16/24 15:57 Neut # (Auto) 11.47 10^3/uL (1. 8-7.7) H 04/16/24 15:57 Lymph # (Auto) 2.6 10^3/uL (0.8- 4.8) 04/16/24 15:57 [place] # (Auto) 0.9 10^3/uL (0.2- 0.9) 04/16/24 15:57 Eos # (Auto) 0.1 10^3/uL (0.0- 0.8) 04/16/24 15:57 Baso # (Auto) 0.1 10^3/uL (0.0- 0.1) 04/16/24 15:57 Nucleated RBC % (a uto) 0 % 04/16/24 15:57 Nucleated RBCs # 0.0 /100WBC 04/16/24 15:57 Sodium 139 mmol/L (136-1 45) 04/16/24 15:57 Potassium 3.0 mmol/L (3.5-5 .1) L 04/16/24 15:57 Chloride 99 mmol/L (98-107 ) 04/16/24 15:57 Carbon Dioxide 25 mmol/L (22-29) 04/16/24 15:57 Anion Gap 18.0 (5-19) 04/16/24 15:57 BUN 8 mg/dL (6-20) 04/16/24 15:57 Creatinine 0.8 mg/dL (0.5-0. 9) 04/16/24 15:57 GFR Calculation 80.3 mL/min (90-1 30) L 04/16/24 15:57 Glucose 92 mg/dL (65-115) 04/16/24 15:57 Calculated Osmolal ity 286 mOsm/kg (285- 295) 04/16/24 15:57 Calcium 8.8 mg/dL (8.5-10 .5) 04/16/24 15:57 Total Bilirubin 1.6 mg/dL (0.15-1 .2) H 04/16/24 15:57 AST 28 U/L (0-32) 04/16/24 15:57 ALT 23 U/L (0-33) 04/16/24 15:57 Alkaline Phosphata se 72 U/L (35-105) 04/16/24 15:57 Total Protein 7.2 g/dL (6.6-8.7 ) 04/16/24 15:57 Albumin 4.2 g/dL (3.5-5.2 ) 04/16/24 15:57 Globulin 3.0 g/dL (1.3-4.6 ) 04/16/24 15:57 HCG, Qual Negative (Negati ve) 04/16/24 15:57 Salicylates 0.6 mg/dL (3-10) L 04/16/24 15:57 Urine Opiates Scre en Negative ng/mL (N egative) 04/16/24 15:50 Acetaminophen < 5.0 ug/mL (10-3 0) L 04/16/24 15:57 Ur Barbiturates Sc reen Negative ng/mL (N egative) 04/16/24 15:50 Ur Phencyclidine S crn Negative ng/mL (N egative) 04/16/24 15:50 Ur Amphetamines Sc reen Positive ng/mL (N egative) H 04/16/24 15:50 U Benzodiazepines Scrn Positive ng/mL (N egative) H 04/16/24 15:50 Urine Cocaine Scre en Negative ng/mL (N egative) 04/16/24 15:50 U Marijuana (THC) Screen Positive ng/mL (N egative) H 04/16/24 15:50 Ethyl Alcohol < 10 mg/dL (0-10) 04/16/24 15:57 Vitals: Last Vital Signs Temp 98.1 F 04/27/24 19:50 Pulse 68 04/28/24 06:00 Resp 14 04/28/24 06:00 BP 96/59 04/28/24 06:00 Pulse Ox 96 04/28/24 06:00 O2 Del Method Room Air 04/28/24 06:00 Discharge Plan Discharge Patient Disposition: Home Condition: Stable Prescriptions: New buspirone 10 mg Tablet 10 mg PO 0900,2100 30 Days Qty: 60 1RF fluoxetine 20 mg Capsule 20 mg PO DAILY 30 Days Qty: 30 1RF paliperidone 6 mg Tablet Extended Release 24 Hr 6 mg PO DAILY 30 Days Qty: 30 1RF trazodone 50 mg Tablet 50 mg PO BEDTIME PRN (Reason: Sleep) 30 Days Qty: 30 1RF Continued metformin 500 mg tablet 500 mg PO DAILY 30 Days Qty: 30 1RF Discharge Orders: Discharge Order (Routine); Ordered 04/28/24 Ordered By: Sarbjit Noel Referrals: [facility] [Other] - 05/06/24 10:00 am (Addmission day.) [facility] [Outside] - 04/29/24 10:30 am (Initial appointment ) Discharge Diet: Regular Discharge Activity: Resume usual activity Patient Instructions: Opioid Safety Discharge Attestations NPU Time Spent in Discharge Care*: less than 30 min Specific Discharge Activities: Specific discharge activities: educating patient, discussing with correctional casework specialist/social workers/dc planners, documenting/other paperwork and evaluating patient/reviewing data Coding Level of Care Code Acute Code for [facility] Fwd Diagnoses Paranoid reaction, acute F23 Intellectual disability F79 Depression F32.A Anxiety F41.9 Methamphetamine use disorder, moderate, dependence F15.20
[2024-04-28 14:00] VITALS: RESP 18
[2024-04-28 16:23] VITALS: BP 96/59; PULSE 68; RESP 14; O2SAT 96
== END 2024-04-28 18:00 | disposition home or self-care (01) | DRG 885 ==
LOC: ER 16:58 → NP 17:25
PROVIDERS: Admitting Provider Psychiatry & Neurology Psychiatry; Emergency Provider General Practice; PCP Physician Assistant; Visit Provider Psychiatry & Neurology Psychiatry
DX: F23 Brief psychotic disorder (principal); F15.20 Other stimulant dependence, uncomplicated; R45.851 Suicidal ideations; Z59.00 Homelessness unspecified; F79 Unspecified intellectual disabilities; F32.A Depression, unspecified; F41.9 Anxiety disorder, unspecified; E87.6 Hypokalemia; E11.9 Type 2 diabetes mellitus without complications; Z79.84 Long term (current) use of oral hypoglycemic drugs; Z91.51 Personal history of suicidal behavior
CPT/HCPCS: 36415; 80053; 80306; 80307; 84703; 85025; 97150; 97165; 97167; 99285

== ENCOUNTER 2024-06-28 21:57 | Inpatient (IN) | payer MEDICARE, MEDICAID, SELFPAY ==
[2024-06-28 22:03] VITALS: BP 112/77; PULSE 72; RESP 16; TEMP 36.7; O2SAT 95
--- NOTE | 2024-06-28 22:22 | W.ED.PSYCHS ---
HPI - Psych General: Chief Complaint: Psychiatric Symptoms Stated Complaint: SI Time Seen by Provider: 06/28/24 22:11 Source: patient Mode of arrival: ambulatory Limitations: no limitations History of Present Illness: Patient is a 38-year-old female presents to ED today with a complaint of depression and suicidal ideations. She states she is depressed because of everything going on . She does not seem to be able to elaborate on this much. She does tell me she is essentially homeless and has been since December. She states she has not been taking her psychiatric medications. Patient was admitted to NPU in April 2024. She was reportedly discharged to [facility] for help of substance abuse. Patient denies drug or alcohol abuse at this time. She tells me she has a plan to walk out in front of a train or shoot herself in the head with a gun. complaint: suicidal ideation and feels depressed Onset (ago): week(s) Duration: constant History of same: Yes Relieving factors: none Context: not taking psychiatric medications and significant life stressor Associated psychiatric symptoms: depression and suicidal ideation Associated symptoms: Reports depression and suicidal ideation; Deny auditory hallucinations, visual hallucinations or homicidal ideation Treatments prior to arrival: none If self harm: admits thoughts of self harm and has plan Related Data Previous Rx's Medication Instructions Recorded buspirone 10 mg tablet 10 mg PO 0900,2100 30 days #60 tabs 04/28/24 fluoxetine 20 mg capsule 20 mg PO DAILY 30 days #30 caps 04/28/24 metformin 500 mg tablet 500 mg PO DAILY 30 days #30 tabs 04/28/24 paliperidone 6 mg tablet,extended 6 mg PO DAILY 30 days #30 tabs 04/28/24 release 24 hr trazodone 50 mg tablet 50 mg PO BEDTIME PRN Sleep 30 days 04/28/24 #30 tabs Allergies Allergy/AdvReac Type Severity Reaction Status Date / Time No Known Allergies Allergy Verified 06/28/24 22:08 Review of Systems Const: Denies: fever(s) or chills Card: Denies: chest pain, palpitations, lightheadedness or syncope Resp: Denies: dyspnea GI: Denies: abdominal pain, nausea, vomiting or diarrhea Skin/Breast: Denies: rash Neuro: Denies: headache(s) Psych: Reports: anxiety, depression, hopelessness and suicidal ideation; Denies: visual hallucinations, auditory hallucinations or homicidal ideation [facility] ED PFSH: Medical History No pertinent family history Surgical History No pertinent past surgical history Social History Smoking and tobacco/nicotine status: never used tobacco/nicotine Alcohol intake: never Substance/Drug Use: never Physical Exam Const: GENERAL APPEARANCE: cooperative NUTRITIONAL APPEARANCE: obese morbidly obese (BMI 48.6) ORIENTATION/CONSCIOUSNESS: Yes awake, Yes oriented to person and Yes oriented to place OTHER: seems to have baseline intellectual delay Neuro: SORAYA COMA SCALE: document GCS findings Soraya coma scale eye opening: Spontaneous Soraya coma scale verbal response: Orientated [place] coma scale motor response: Obey commands Soraya coma scale total score: 15 COMMON NORMALS: moves all extremities, no focal motor deficits, no sensory deficits noted and gait normal SENSORIUM/ORIENTATION: Yes oriented to person and Yes oriented to place Psych: COMMON NORMALS: cooperative, speech normal, activity/motor behavior normal, denies hallucinations and denies homicidal ideation APPEARANCE: Yes grossly normal ATTITUDE: Yes calm ACTIVITY/MOTOR BEHAVIOR: Yes appropriate eye contact SPEECH: Yes normal speech MOOD & AFFECT: Yes euthymic mood ATTENTION/CONCENTRATION: Yes attention grossly intact and Yes concentration grossly intact MEMORY/COGNITION: Yes memory grossly intact and Yes cognition grossly intact INSIGHT: Fair insight present (Psych) JUDGEMENT: Limited judgement present (Psych) Course Consultations: Consultation #1: Dr. Noel-accepts to NPU Vital Signs: Vital signs: Vital Signs Temperature 98.1 F 06/28/24 22:03 Pulse Rate 72 06/28/24 22:03 Respiratory Rate 16 06/28/24 22:03 Blood Pressure 112/77 06/28/24 22:03 Pulse Oximetry 95 06/28/24 22:03 Oxygen Delivery Me thod Room Air 06/28/24 22:03 MDM - Psych Medical Decision Making Patient will be admitted to NPU to Dr. Noel for treatment/assessment of her depression and suicidal ideations. She will be placed on a 96 hour hold as she stated she was suicidal. Lab Data 06/28/24 22:27 06/28/24 22:27 Laboratory Results WBC 11.74 10^3/uL (3.29-11.43) H 06/28/24: RBC 4.89 10^6/uL (3.85-5.65) 06/28/24: Hgb 15.00 g/dL (11.27-16.99) 06/28/24: Hct 45.8 % (36-47) 06/28/24: MCV 93.7 fl (85-98) 06/28/24: MCH 30.7 pg (27-33) 06/28/24: MCHC 32.8 g/dL (30-55) 06/28/24: RDW 13.0 % (12.1-15.1) 06/28/24: Plt Count 254 10^3/cmm (157-399) 06/28/24: MPV 10.5 fL (7.4-10.4) H 06/28/24: Neut % (Auto) 63.1 % 06/28/24: Lymph % (Auto) 25.7 % 06/28/24: [place] % (Auto) 6.3 % 06/28/24: Eos % (Auto) 3.5 % 06/28/24: Baso % (Auto) 1.1 % 06/28/24: Neut # (Auto) 7.41 10^3/uL (1.8-7.7) 06/28/24: Lymph # (Auto) 3.0 10^3/uL (0.8-4.8) 06/28/24: [place] # (Auto) 0.7 10^3/uL (0.2-0.9) 06/28/24: Eos # (Auto) 0.4 10^3/uL (0.0-0.8) 06/28/24: Baso # (Auto) 0.1 10^3/uL (0.0-0.1) 06/28/24: Nucleated RBC % (auto) 0 % 06/28/24: Nucleated RBCs # 0.0 /100WBC 06/28/24: Sodium 139 mmol/L (136-145) 09/23/24 22:27 Potassium 4.2 mmol/L (3.5-5.1) 06/28/24 22:27 Chloride 102 mmol/L (98-107) 06/28/24 22:27 Carbon Dioxide 26 mmol/L (22-29) 06/28/24 22:27 Anion Gap 15.2 (5-19) 06/28/24 22:27 BUN 11 mg/dL (6-20) 06/28/24 22:27 Creatinine 0.8 mg/dL (0.5-0.9) 06/28/24 22:27 GFR Calculation 80.3 mL/min (90-130) L 06/28/24 22:27 Glucose 146 mg/dL (65-115) H 06/28/24 22:27 Calculated Osmolality 290 mOsm/kg (285-295) 06/28/24 22: Calcium 9.0 mg/dL (8.5-10.5) 06/28/24 22: Total Bilirubin 0.7 mg/dL (0.15-1.2) 06/28/24 22: AST 14 U/L (0-32) 06/28/24 22:27 ALT 16 U/L (0-33) 06/28/24 22:27 Alkaline Phosphatase 79 U/L (35-105) 06/28/24 22:27 Total Protein 7.4 g/dL (6.6-8.7) 06/28/24 22:27 Albumin 4.3 g/dL (3.5-5.2) 06/28/24 22: Globulin 3.1 g/dL (1.3-4.6) 06/28/24 22:27 HCG, Qual Negative (Negative) 06/28/24 22:48 Urine Color Yellow (Yellow) 06/28/24 22:48 Urine Appearance Clear (CLEAR) 06/28/24 22:48 Urine pH 5.5 (5-7) 06/28/24 22:48 Ur Specific [place] 1.027 (1.005-1.030) 06/28/24 22:48 Urine Protein Negative (Negative) 06/28/24 22:48 Urine Glucose (UA) Negative (Normal) 06/28/24 22:48 Urine Ketones Negative (Negative) 06/28/24 22:48 Urine Blood Negative (Negative) 06/28/24 22:48 Urine Nitrate Negative (Negative) 06/28/24 22:48 Urine Bilirubin Negative (Negative) 06/28/24 22:48 Urine Urobilinogen 1.0 mg/dL (Negative) 06/28/24 22:48 Ur Leukocyte Esterase Negative (Negative) 06/28/24 22:48 Urine RBC 0-2 /hpf (0-2) 06/28/24 22:48 Urine WBC 6-10 /hpf (0-5) 06/28/24 22:48 Ur Squamous Epith Cells 6-10 /hpf (0-5) 06/28/24 22:48 Amorphous Sediment Not Reportable 06/28/24 22:48 Urine Bacteria 2+ /hpf (NONE) H 06/28/24 22:48 Hyaline Casts 0-4 /lpf H 06/28/24 22:48 Salicylates < 0.3 mg/dL (3-10) L 06/28/24 22:27 Urine Opiates Screen Negative ng/mL (Negative) 06/28/24 22:48 Acetaminophen < 5.0 ug/mL (10-30) L 06/28/24 22:27 Ur Barbiturates Screen Negative ng/mL (Negative) 06/28/24 22:48 Ur Phencyclidine Scrn Negative ng/mL (Negative) 06/28/24 22:48 Ur Amphetamines Screen Negative ng/mL (Negative) 06/28/24 22:48 U Benzodiazepines Scrn Negative ng/mL (Negative) 06/28/24 22:48 Urine Cocaine Screen Negative ng/mL (Negative) 06/28/24 22:48 U Marijuana (THC) Screen Positive ng/mL (Negative) H 06/28/24 22:48 Ethyl Alcohol < 10 mg/dL (0-10) 06/28/24 22:27 No radiology studies performed this visit Discharge Plan Discharge Patient Disposition: Admitted As Inpatient Clinical Impression: Suicidal ideation Condition: Stable Coding Level of Care Code ED [employer]er for Kyler Fernandez
[2024-06-28 22:38] LABS: Basophils # 0.1 10^3/uL (0.0-0.1); Basophils % 1.1 %; Eosinophils # 0.4 10^3/uL (0.0-0.8); Eosinophils % 3.5 %; Hematocrit 45.8 % (36-47); Lymphocytes % 25.7 %; Mean Corpuscular HGB Conc 32.8 g/dL (30-55); Mean Corpuscular Hemoglobin 30.7 pg (27-33); Mean Corpuscular Volume 93.7 fl (85-98); Mean Platelet Volume 10.5 fL (7.4-10.4); Monocytes # 0.7 10^3/uL (0.2-0.9); Monocytes % 6.3 %; Neutrophils # 7.41 10^3/uL (1.8-7.7); Neutrophils % 63.1 %; Nucleated Red Blood Cells % 0 %; Platelet Count 254 10^3/cmm (157-399); Red Blood Count 4.89 10^6/uL (3.85-5.65); White Blood Count 11.74 10^3/uL (3.29-11.43)
[2024-06-28 22:54] LABS: HCG Qualitative Urine. Negative (Negative)
[2024-06-28 22:55] LABS: Bilirubin Urine Negative (Negative); Blood Urine Negative (Negative); Glucose Urine UA Negative (Normal); Ketones Urine Negative (Negative); Leukocyte Esterase Urine Negative (Negative); Nitrate Urine Negative (Negative); Protein Urine Negative (Negative); Specific Gravity, Urine 1.027 (1.005-1.030); Urine Appearance Clear (CLEAR); Urine Color Yellow (Yellow); pH Urine 5.5 (5-7)
[2024-06-28 22:57] LABS: Alanine Aminotransferase 16 U/L (0-33); Albumin Level 4.3 g/dL (3.5-5.2); Alkaline Phosphatase 79 U/L (35-105); Anion Gap 15.2 (5-19); Aspartate Amino Transferase 14 U/L (0-32); Blood Urea Nitrogen 11 mg/dL (6-20); Carbon Dioxide 26 mmol/L (22-29); Chloride 102 mmol/L (98-107); Creatinine Clr Calc Pharmacy 140.3619; Globulin 3.1 g/dL (1.3-4.6); Glomerular Filtration Rate 80.3 mL/min (90-130); Glucose 146 mg/dL (65-115); Osmolality Calculated 290 mOsm/kg (285-295); Potassium 4.2 mmol/L (3.5-5.1); Sodium 139 mmol/L (136-145); Total Bilirubin 0.7 mg/dL (0.15-1.2); Total Protein 7.4 g/dL (6.6-8.7)
[2024-06-28 22:58] LABS: Acetaminophen < 5.0 ug/mL (10-30); Alcohol Level < 10 mg/dL (0-10); Salicylate < 0.3 mg/dL (3-10)
[2024-06-28 23:00] LABS: Add Urine Microscopic? YES; Bacteria Urine 2+ /hpf; Hyaline Casts Urine 0-4 /lpf; RBC Urine 0-2 /hpf (0-2)
[2024-06-28 23:02] LABS: Amphetamines Screen Urine Negative (Negative); Barbiturates Screen Urine Negative (Negative); Benzodiazepines Screen Urine Negative (Negative); Cocaine Screen Urine Negative (Negative); Opiate Screen Urine Negative (Negative); PCP Screen Urine Negative (Negative); THC Screen Urine Positive (Negative)
--- NOTE | 2024-06-28 23:53 | PC.NURSE ---
96 Hour Hold Pt served with copy of 96 HH by this RN and security. Pt alert and oriented, no questions at this time.
[2024-06-29] VITALS (7 sets, daily range): BP systolic 118–168; BP diastolic 54–92; PULSE 69–94; RESP 16–18; TEMP 36.3–36.7; O2SAT 91–96
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
[2024-06-29] MEDS: hyDROXYzine 25 mg Capsule 50 MG PO (20:54)
[2024-06-29] MEDS: BuSPIRONE 10 mg Tablet PO (20:54)
[2024-06-29] MEDS: trazodone 50 mg Tablet PO (20:55)
[2024-06-30 05:44] VITALS: BP 122/82; PULSE 91; RESP 16; TEMP 36.7; O2SAT 97
[2024-06-30] MEDS: paliperidone ER 6 mg Tablet PO (08:57)
[2024-06-30] MEDS: metformin 500 mg Tablet PO (08:57)
[2024-06-30] MEDS: BuSPIRONE 10 mg Tablet PO ×2 (08:57→20:48)
[2024-06-30] MEDS: fluoxetine 20 mg Capsule PO (08:57)
[2024-06-30 13:51] VITALS: BP 125/84; PULSE 84; RESP 18; TEMP 36.8; O2SAT 96
--- NOTE | 2024-06-30 17:31 | W.PM.NPUPNS ---
Subjective NPU Subjective: 38-year-old female with a history of methamphetamine abuse, depression, and legal problems with a history of poor impulse control, depression and psychosis. The patient had described having significant legal problems. She had charges regarding assaultive behavior towards police. The patient had stated that she had no social supports and continued to report wanting to go to a skilled nursing but at other times reporting that she did not want her money to be taken away from her. Patient had admitted having problems with managing her anger. She had been compliant on the milieu and reported continuing to have thoughts of wanting to kill herself by jumping into a train. Mental Status Exam MSE Comments: This is an obese versus morbidly obese white female in hospital scrubs with limited grooming and eye contact. No abnormal movements except for mild psychomotor retardation. She was cooperative with exam in mild to moderate distress. Speech was decreased in rate and slightly decreased in volume. Mood described as depressed. Her affect was mood congruent and subdued. Thought process was linear. Thought content: Patient endorsed suicidal but denied homicidal ideation, there were no delusions reported or noted, she denied auditory or visual hallucinations. The patient exhibits signs of severe depression and anxiety. Attention and concentration were intact and memory was mostly reliable but none were formally tested. She is alert and oriented x 3. Insight and judgment are limited and impulse control is limited. Intellectual ability is commensurate with mild cognitive impairment. Vitals/I&O/Wt Last Vital Signs Temp 98.2 F 06/30/24 13:51 Pulse 84 06/30/24 13:51 Resp 18 06/30/24 13:51 BP 125/84 06/30/24 13:51 Pulse Ox 96 06/30/24 13:51 O2 Del Method Room Air 06/29/24 01:05 Weight last 48 hrs Weight 140.727 kg Data NPU 06/28/24 22:27 06/28/24 22:27 A&P Assessment and plan (1) Paranoid reaction, acute: (2) Intellectual disability: (3) Depression: (4) Anxiety: (5) Methamphetamine use disorder, moderate, dependence: Plan This is a 38-year-old white female with a long history of mental health and addiction issues who was hospitalized two months ago with poor social supports, legal issues and homeless now endorsing suicidal ideation with significant history of suicidal attempts. 1. Encourage individual, group and milieu therapy. 2. Recommend sober living treatment at the highest level of care to which the patient is willing to commit. 3. Continue q-15 minute checks for safety.? 4.? Restart previous medications. 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 5.? Will attempt to gather collateral information. Involuntary Hold Information 96 Hour Hold: 96 Hour Involuntary Admission: Yes 96 Hour Hold Ending Date: 07/02/24 96 Hour Hold Ending Time: 23:04 Attestations NPU Medical Necessity Statement*: Inpatient hospitalization is medically necessary and the clinically appropriate intervention at this time. We will monitor and adjust medications as indicated. Her likely length of stay 5-7 days. Coding Level of Care Code Acute Code for [facility] Fwd Diagnoses Paranoid reaction, acute F23 Intellectual disability F79 Depression F32.A Anxiety F41.9 Methamphetamine use disorder, moderate, dependence F15.20
[2024-06-30 20:32] VITALS: BP 130/88; PULSE 88; RESP 18; TEMP 36.3; O2SAT 96
[2024-06-30] MEDS: hyDROXYzine 25 mg Capsule 50 MG PO (20:45)
[2024-06-30] MEDS: trazodone 50 mg Tablet PO (20:45)
[2024-07-01 05:42] VITALS: BP 104/66; PULSE 77; RESP 16; TEMP 36.8; O2SAT 95
[2024-07-01] MEDS: BuSPIRONE 10 mg Tablet PO (08:47)
[2024-07-01] MEDS: paliperidone ER 6 mg Tablet PO (08:47)
[2024-07-01] MEDS: fluoxetine 20 mg Capsule PO (08:47)
[2024-07-01] MEDS: metformin 500 mg Tablet PO (08:47)
[2024-07-01 14:00] VITALS: BP 125/84; PULSE 71; RESP 20; TEMP 37.1; O2SAT 96
[2024-07-01] MEDS: hyDROXYzine 25 mg Capsule 50 MG PO (15:49)
[2024-07-01] MEDS: OLANZapine 5 mg ODT PO (16:49)
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
[2024-07-01 20:47] VITALS: BP 105/65; PULSE 94; RESP 18; TEMP 36.8; O2SAT 94
[2024-07-02 04:59] VITALS: BP 131/85; PULSE 88; RESP 18; O2SAT 96
[2024-07-02] MEDS: fluoxetine 10 mg Capsule 30 MG PO (09:03)
[2024-07-02] MEDS: metformin 500 mg Tablet PO (09:03)
[2024-07-02] MEDS: paliperidone ER 6 mg Tablet PO (09:03)
[2024-07-02] MEDS: calcium carbonate 500 mg Chew Tablet 1000 MG PO (12:07)
[2024-07-02 14:00] VITALS: BP 130/75; PULSE 91; RESP 16; TEMP 36.8; O2SAT 96
--- NOTE | 2024-07-02 16:25 | W.PM.NPUPNS ---
Subjective NPU Subjective: 38-year-old female with a history of methamphetamine abuse, depression, and legal problems with a history of poor impulse control, depression and psychosis. The patient reported continued depression and fleeting suicidal thoughts. She had continued to report worries about where she would live when leaving the hospital. She had reported at having problems with poor impulse control. She had reported having slept better. She had expressed desire to consider guardianship. She had expressed concern about going to [facility] for her actions of aggression towards other citizens. She had reported that she had no supports and struggled with making good financial decisions as well. She had expressed anxiety about being homeless and destitute. Mental Status Exam MSE Comments: This is an obese versus morbidly obese white female in hospital scrubs with limited grooming and eye contact. No abnormal movements except for mild psychomotor retardation. She was cooperative with exam in mild to moderate distress. Speech was decreased in rate and normal in volume. Mood described as depressed. Her affect was mood constricted and restricted. Thought process was linear. Thought content: Patient endorsed suicidal but denied homicidal ideation. There were no delusions reported or noted, she denied auditory or visual hallucinations. Attention and concentration were intact and memory was mostly reliable but none were formally tested. She is alert and oriented x 3. Insight and judgment are limited and impulse control is impaired. Intellectual ability is commensurate with mild cognitive impairment. Vitals/I&O/Wt Last Vital Signs Temp 98.3 F 07/02/24 14:00 Pulse 91 07/02/24 14:00 Resp 16 07/02/24 14:00 BP 130/75 07/02/24 14:00 Pulse Ox 96 07/02/24 14:00 O2 Del Method Room Air 07/02/24 14:00 Data NPU 06/28/24 22:27 06/28/24 22:27 A&P Assessment and plan (1) Impulse control disorder, unspecified: (2) Paranoid reaction, acute: (3) Intellectual disability: (4) Depression: (5) Anxiety: (6) Methamphetamine use disorder, moderate, dependence: Plan This is a 38-year-old white female with a long history of mental health and addiction issues who was hospitalized two months ago with poor social supports, legal issues and homeless now endorsing suicidal ideation with significant history of suicidal attempts. 1. Encourage individual, group and milieu therapy. 2. Recommend sober living treatment at the highest level of care to which the patient is willing to commit. 3. Continue q-15 minute checks for safety.? 4.? Continue paliperidone 9mg daily to target impulsivity and d/c buspar. Continue prozac 30mg in am. 5.? Will attempt to gather collateral information. Involuntary Hold Information 96 Hour Hold: 96 Hour Involuntary Admission: Yes 96 Hour Hold Ending Date: 07/02/24 96 Hour Hold Ending Time: 23:04 Attestations NPU Medical Necessity Statement*: Inpatient hospitalization is medically necessary and the clinically appropriate intervention at this time. We will monitor and adjust medications as indicated. Her likely length of stay 5-7 days. Coding Level of Care Code Acute Code for [facility] Fwd Diagnoses Impulse control disorder, unspecified F63.9 Paranoid reaction, acute F23 Intellectual disability F79 Depression F32.A Anxiety F41.9 Methamphetamine use disorder, moderate, dependence F15.20
[2024-07-02 20:14] VITALS: BP 115/74; PULSE 86; RESP 20; TEMP 36.8; O2SAT 95
[2024-07-03 06:00] VITALS: BP 92/59; PULSE 83; RESP 18; TEMP 36.7; O2SAT 94
[2024-07-03] MEDS: metformin 500 mg Tablet PO (08:55)
[2024-07-03] MEDS: fluoxetine 10 mg Capsule 30 MG PO (08:55)
[2024-07-03] MEDS: paliperidone ER 9 mg Tablet PO (08:56)
--- NOTE | 2024-07-03 10:59 | P.NPUPN_ITS ---
Subjective NPU 2 Subjective: 38-year-old female with a history of met hamphetamine abuse, depression, and legal problems with a history of poor impulse control, depression and psychosis. Patient was compliant on the milieu. She had expressed hope that she would be considered for requiring guardianship and stated that she may [facility]. She had been redirectable. She had reported that her anger was under better control. She had reported continued concern about relapsing on drugs if she were to go to a snf. She had reported adequate sleep. No problems were reported by staff. She had reported continued problems with managing anxiety. Mental Status Exam 2 MSE Comments: This is an obese versus morbidly obese white female in hospital scrubs with limited grooming and eye contact. No abnormal movements except for mild psychomotor retardation. She was pleasant and cooperative with exam in mild distress. Speech was normal in rate and normal in volume. Mood described as depressed. Her affect was mood congruent and constricted. Thought process was linear. Thought content: Patient endorsed suicidal but denied homicidal ideation. There were no delusions reported or noted, she denied auditory or visual hallucinations. Attention and concentration were intact and memory was mostly reliable but none were formally tested. She is alert and oriented x 3. Insight and judgment are limited and impulse control is impaired. Intellectual ability is commensurate with mild cognitive impairment. Vitals/I&O/Wt Last Vital Signs Temp 98.0 F 07/03/24 06:00 Pulse 83 07/03/24 06:00 Resp 18 07/03/24 06:00 BP 92/59 07/03/24 06:00 Pulse Ox 94 07/03/24 06:00 O2 Del Method Room Air 07/03/24 06:00 Data NPU 06/28/24 22:27 06/28/24 22:27 A&P Assessment and plan (1) Impulse control disorder, unspecified: (2) Paranoid reaction, acute: (3) Intellectual disability: (4) Depression: (5) Anxiety: (6) Methamphetamine use disorder, moderate, dependence: Plan This is a 38-year-old white female with a long history of mental health and addiction issues who was hospitalized two months ago with poor social supports, legal issues and homeless now endorsing suicidal ideation with significant history of suicidal attempts. 1. Encourage individual, group and milieu therapy. 2. Recommend sober living treatment at the highest level of care to which the patient is willing to commit. 3. Continue q-15 minute checks for safety.? 4.? Continue paliperidone 9mg daily to target impulsivity. Continue prozac 30mg in am. 5.? Will attempt to gather collateral information. Involuntary Hold Information 2 96 Hour Hold: 96 Hour Involuntary Admission: Yes 96 Hour Hold Ending Date: 07/02/24 96 Hour Hold Ending Time: 23:04 Attestations NPU 2 Medical Necessity Statement*: Inpatient hospitalization is medically necessary and the clinically appropriate intervention at this time. We will monitor and adjust medications as indicated. Her likely length of stay may be longer as we may be in pursuant of state guardianship. Coding Level of Care Code Acute Code for [facility] Fwd Diagnoses Impulse control disorder, unspecified F63.9 Paranoid reaction, acute F23 Intellectual disability F79 Depression F32.A Anxiety F41.9 Methamphetamine use disorder, moderate, dependence F15.20
[2024-07-03 13:47] VITALS: BP 121/87; PULSE 81; RESP 16; TEMP 36.6; O2SAT 98
[2024-07-03 19:36] VITALS: BP 100/60; PULSE 83; RESP 18; TEMP 36.4; O2SAT 96
[2024-07-03] MEDS: hyDROXYzine 25 mg Capsule 50 MG PO (20:08)
[2024-07-03] MEDS: trazodone 50 mg Tablet PO (20:08)
[2024-07-04 06:00] VITALS: BP 110/70; PULSE 88; RESP 16; TEMP 36.8; O2SAT 96; BMI 49.2
[2024-07-04] MEDS: fluoxetine 10 mg Capsule 30 MG PO (08:34)
[2024-07-04] MEDS: metformin 500 mg Tablet PO (08:34)
[2024-07-04] MEDS: paliperidone ER 9 mg Tablet PO (08:34)
[2024-07-04 14:00] VITALS: BP 104/57; PULSE 81; RESP 16; TEMP 36.6; O2SAT 96
--- NOTE | 2024-07-04 14:03 | P.NPUPN_ITS ---
Subjective NPU 2 Subjective: 38-year-old female with a history of met hamphetamine abuse, depression, and legal problems with a history of poor impulse control, depression and psychosis. Patient was compliant on the milieu. The patient reported that she was doing better. She had expressed anxiety about going back to a intermediate. She reported that she continued to worry about her potential legal issues and did not wish to go to prison. She had reported her depression often would last for days. She reported no side effects from the increase in Prozac to 30 mg daily. No substantiative behavioral changes were seen here on the unit although the patient had appeared less anxious and less isolative on the milieu. Mental Status Exam 2 MSE Comments: This is an obese versus morbidly obese white female in hospital scrubs with limited grooming and eye contact. No abnormal movements except for mild psychomotor retardation. She was pleasant and cooperative with exam in mild distress. Speech was normal in rate and normal in volume. Mood described as depressed. Her affect was mood congruent and constricted. Thought process was linear. Thought content: Patient endorsed occasional suicidal thoughts but denied homicidal ideation. There were no delusions reported or noted, she denied auditory or visual hallucinations. Attention and concentration were intact and memory was mostly reliable but none were formally tested. She is alert and oriented x 3. Insight and judgment are limited and impulse control is impaired. Intellectual ability is commensurate with mild cognitive impairment. Vitals/I&O/Wt Last Vital Signs Temp 98.2 F 07/04/24 06:00 Pulse 88 07/04/24 06:00 Resp 16 07/04/24 06:00 BP 110/70 07/04/24 06:00 Pulse Ox 96 07/04/24 06:00 O2 Del Method Room Air 07/04/24 06:00 Weight last 48 hrs Weight 142.655 kg Data NPU 06/28/24 22:27 06/28/24 22:27 A&P Assessment and plan (1) Impulse control disorder, unspecified: (2) Paranoid reaction, acute: (3) Intellectual disability: (4) Depression: (5) Anxiety: (6) Methamphetamine use disorder, moderate, dependence: Plan This is a 38-year-old white female with a long history of mental health and addiction issues who was hospitalized two months ago with poor social supports, legal issues and homeless now endorsing suicidal ideation with significant history of suicidal attempts. 1. Encourage individual, group and milieu therapy. 2. Recommend sober living treatment at the highest level of care to which the patient is willing to commit. 3. Continue q-15 minute checks for safety.? 4.? Continue paliperidone 9mg daily to target impulsivity. Continue prozac 30mg in am with increase to 40mg in 2-3 days. Involuntary Hold Information 2 96 Hour Hold: 96 Hour Involuntary Admission: Yes 96 Hour Hold Ending Date: 07/02/24 96 Hour Hold Ending Time: 23:04 Attestations NPU 2 Medical Necessity Statement*: Inpatient hospitalization is medically necessary and the clinically appropriate intervention at this time. We will monitor and adjust medications as indicated. Her likely length of stay may be longer as we may be in pursuant of state guardianship. Coding Level of Care Code Acute Code for [facility] Fwd Diagnoses Impulse control disorder, unspecified F63.9 Paranoid reaction, acute F23 Intellectual disability F79 Depression F32.A Anxiety F41.9 Methamphetamine use disorder, moderate, dependence F15.20
[2024-07-04 19:56] VITALS: BP 97/71; PULSE 81; RESP 17; TEMP 36.7; O2SAT 94
[2024-07-05 06:00] VITALS: BP 104/70; PULSE 82; RESP 18; TEMP 36.8; O2SAT 95
[2024-07-05] MEDS: fluoxetine 10 mg Capsule 30 MG PO (08:11)
[2024-07-05] MEDS: metformin 500 mg Tablet PO (08:12)
[2024-07-05] MEDS: paliperidone ER 9 mg Tablet PO (08:12)
[2024-07-05 14:00] VITALS: BP 128/60; PULSE 86; RESP 16; TEMP 37.2; O2SAT 96
--- NOTE | 2024-07-05 15:08 | W.PM.NPUPNS ---
Subjective NPU Subjective: 38-year-old female with a history of methamphetamine abuse, depression, and legal problems with a history of poor impulse control, depression and psychosis. Patient reported no side effects from her medications which were increased over the last few days. She had expressed desire to avoid serving correction time and stated that she was ready to have a guardian. No behavioral complaints and no acts of aggression were noted. She had been compliant with her medication regimen. She had a endorsed a lack of supports from family member on the outside. She had reported having significant problems in learning as a child and continued to struggle with reading. . Mental Status Exam MSE Comments: This is an obese versus morbidly obese white female in hospital scrubs with limited grooming and eye contact. No abnormal movements except for mild psychomotor retardation. She was pleasant and cooperative with exam in mild distress. Speech was normal in rate and normal in volume. Mood described as okay. Her affect was less restricted. Thought process was linear. Thought content: Patient endorsed no suicidal thoughts and denied homicidal ideation. There were no delusions reported or noted, she denied auditory or visual hallucinations. Attention and concentration were intact and memory was mostly reliable but none were formally tested. She is alert and oriented x 3. Insight and judgment are limited and impulse control is impaired. Intellectual ability is commensurate with mild cognitive impairment. Vitals/I&O/Wt Last Vital Signs Temp 98.9 F 07/05/24 14:00 Pulse 86 07/05/24 14:00 Resp 16 07/05/24 14:00 BP 128/60 07/05/24 14:00 Pulse Ox 96 07/05/24 14:00 O2 Del Method Room Air 07/05/24 14:00 Weight last 48 hrs Weight 142.655 kg Data NPU 06/28/24 22:27 06/28/24 22:27 A&P Assessment and plan (1) Impulse control disorder, unspecified: (2) Paranoid reaction, acute: (3) Intellectual disability: (4) Depression: (5) Anxiety: (6) Methamphetamine use disorder, moderate, dependence: Plan This is a 38-year-old white female with a long history of mental health and addiction issues who was hospitalized two months ago with poor social supports, legal issues and homeless now endorsing suicidal ideation with significant history of suicidal attempts. 1. Encourage individual, group and milieu therapy. 2. Recommend sober living treatment at the highest level of care to which the patient is willing to commit. 3. Continue q-15 minute checks for safety.? 4.? Continue paliperidone 9mg daily to target impulsivity. Continue prozac 30mg in am with increase to 40mg in 2-3 days. Involuntary Hold Information 96 Hour Hold: 96 Hour Involuntary Admission: Yes 96 Hour Hold Ending Date: 07/02/24 96 Hour Hold Ending Time: 23:04 Attestations NPU Medical Necessity Statement*: Inpatient hospitalization is medically necessary and the clinically appropriate intervention at this time. We will monitor and adjust medications as indicated. Her likely length of stay may be longer as we may be in pursuant of state guardianship. Coding Level of Care Code Acute Code for [facility] Fwd Diagnoses Impulse control disorder, unspecified F63.9 Paranoid reaction, acute F23 Intellectual disability F79 Depression F32.A Anxiety F41.9 Methamphetamine use disorder, moderate, dependence F15.20
--- NOTE | 2024-07-05 16:18 | PC.NURSE ---
PT CAME TO THIS NURSE AND ASKED IF I COULD READ AND EXPLAIN HER 21 DAY PAPERWORK THAT SHE WAS SERVED WITH. THIS NURSE EXPLAINED AND EDUCATED PT ON THE PAPERWORK AND THAT IT IS NOT A SET AND STONE 21 DAYS AND THAT WITH TREATMENT AND PLANNING THINGS COULD CHANGE. PT VERBALIZED UNDERSTANDING AND ALL QUESTIONS WERE ANSWERED.
--- NOTE | 2024-07-05 16:26 | PC.NURSE ---
ORDERS RECEIVED TO COMPLETE SETH TESTING FROM OCCUPATIONAL THERAPY. ORDERS PLACED,
[2024-07-05 19:48] VITALS: BP 120/80; PULSE 108; RESP 18; TEMP 36.9; O2SAT 96
[2024-07-05] MEDS: trazodone 50 mg Tablet PO (20:19)
[2024-07-06 06:00] VITALS: BP 138/89; PULSE 132; RESP 18; TEMP 36.5; O2SAT 96
[2024-07-06] MEDS: fluoxetine 20 mg Capsule 40 MG PO (07:57)
[2024-07-06] MEDS: metformin 500 mg Tablet PO (07:57)
[2024-07-06] MEDS: paliperidone ER 9 mg Tablet PO (07:57)
[2024-07-06 14:00] VITALS: BP 124/81; PULSE 85; RESP 17; TEMP 36.5; O2SAT 97
--- NOTE | 2024-07-06 15:24 | P.NPUPN_ITS ---
Subjective NPU 2 Subjective: 38-year-old female with a history of met hamphetamine abuse, depression, and legal problems with a history of poor impulse control, depression and psychosis. Patient remained calm and cooperative on the unit. She had reported no racing thoughts. She was redirectable. She expressed desire to go to a residential treatment facility and understood that papers would be filed for an extended hold and eventually guardianship hearing would be scheduled. Patient appeared to unsafe with significant intellectual disability and but not be able to manage her own care at home without putting herself in danger. Mental Status Exam 2 MSE Comments: This is an obese versus morbidly obese white female in hospital scrubs with limited grooming and eye contact. No abnormal movements except for mild psychomotor retardation. She was pleasant and cooperative with exam in mild distress. Speech was normal in rate and normal in volume. Mood described as okay. Her affect was less restricted. Thought process was linear. Thought content: Patient endorsed no suicidal thoughts and denied homicidal ideation. There were no delusions reported or noted, she denied auditory or visual hallucinations. Attention and concentration were intact and memory was mostly reliable but none were formally tested. She is alert and oriented x 3. Insight is limited and judgment is limited and impulse control is impaired. Intellectual ability is commensurate with mild cognitive impairment. Vitals/I&O/Wt Last Vital Signs Temp 97.7 F 07/06/24 14:00 Pulse 85 07/06/24 14:00 Resp 17 07/06/24 14:00 BP 124/81 07/06/24 14:00 Pulse Ox 97 07/06/24 14:00 O2 Del Method Room Air 07/06/24 06:00 Data NPU 06/28/24 22:27 06/28/24 22:27 A&P Assessment and plan (1) Impulse control disorder, unspecified: (2) Paranoid reaction, acute: (3) Intellectual disability: (4) Depression: (5) Anxiety: (6) Methamphetamine use disorder, moderate, dependence: Plan This is a 38-year-old white female with a long history of mental health and addiction issues who was hospitalized two months ago with poor social supports, legal issues and homeless now endorsing suicidal ideation with significant history of suicidal attempts. 1. Encourage individual, group and milieu therapy. 2. Recommend sober living treatment at the highest level of care to which the patient is willing to commit. 3. Continue q-15 minute checks for safety.? 4.? Continue paliperidone 9mg daily to target impulsivity. Continue prozac 30mg in am with increase to 40mg in 2-3 days. Involuntary Hold Information 2 96 Hour Hold: 96 Hour Involuntary Admission: Yes 96 Hour Hold Ending Date: 07/02/24 96 Hour Hold Ending Time: 23:04 Attestations NPU 2 Medical Necessity Statement*: Inpatient hospitalization is medically necessary and the clinically appropriate intervention at this time. We will monitor and adjust medications as indicated. Her likely length of stay may be longer as we may be in pursuant of state guardianship. Coding Level of Care Code Acute Code for [facility] Fwd Diagnoses Impulse control disorder, unspecified F63.9 Paranoid reaction, acute F23 Intellectual disability F79 Depression F32.A Anxiety F41.9 Methamphetamine use disorder, moderate, dependence F15.20
[2024-07-06 20:01] VITALS: BP 123/80; PULSE 76; RESP 18; TEMP 36.8; O2SAT 95
[2024-07-07 05:59] VITALS: BP 147/87; PULSE 92; RESP 18; TEMP 36.7; O2SAT 93
[2024-07-07] MEDS: metformin 500 mg Tablet PO (08:08)
[2024-07-07] MEDS: fluoxetine 20 mg Capsule 40 MG PO (08:08)
[2024-07-07] MEDS: paliperidone ER 9 mg Tablet PO (08:08)
[2024-07-07 14:00] VITALS: BP 150/100; PULSE 90; RESP 18; TEMP 36.3; O2SAT 96
[2024-07-07] MEDS: hyDROXYzine 25 mg Capsule 50 MG PO (15:16)
--- NOTE | 2024-07-07 15:19 | PC.OT ---
OT EVALUATION ORDERS RECEIVED FOR SETH TEST. EVALUATION ATTEMPTED AT 1505 BUT PATIENT WILL BE LEAVING THE UNIT FOR COURT AT ANY MOMENT. PER DISCUSSION WITH PATIENT/THERAPIST/INSPECTOR WIRE ROPE; HOLD OT EVALUATION UNTIL TOMORROW.
--- NOTE | 2024-07-07 17:13 | P.NPUPN_ITS ---
Subjective NPU 2 Subjective: 38-year-old female with a history of met hamphetamine abuse, depression, and legal problems with a history of poor impulse control, depression and psychosis. Patient had presented herself to the court hearing today and was placed on a 21-day hold. She had remained somewhat ambivalent about consideration for guardianship. She had been compliant with the medication regimen and reported that she was doing well. She had continued to reports continued concerns about going to a detention as she had acknowledged having made poor decisions including using significant illicit substances that had made her more agitated and aggressive. She had continued to express concern about her legal issues. She was compliant and redirectable on the milieu. Mental Status Exam 2 MSE Comments: This is an obese white female in hospital scrubs with limited grooming and eye contact. No abnormal movements except for mild psychomotor retardation. She was pleasant and cooperative with exam in mild distress. Speech was normal in rate and normal in volume. Mood described as okay. Her affect was less restricted. Thought process was linear. Thought content: Patient endorsed no suicidal thoughts and denied homicidal ideation. There were no delusions reported or noted, she denied auditory or visual hallucinations. A ttention and concentration were intact and memory was mostly reliable but none were formally tested. She is alert and oriented x 3. Insight is limited and judgment is limited and impulse control is impaired. Intellectual ability is commensurate with mild cognitive impairment. Vitals/I&O/Wt Last Vital Signs Temp 97.4 F L 07/07/24 14:00 Pulse 90 07/07/24 14:00 Resp 18 07/07/24 14:00 BP 150/100 07/07/24 14:00 Pulse Ox 96 07/07/24 14:00 O2 Del Method Room Air 07/06/24 06:00 Data NPU 06/28/24 22:27 06/28/24 22:27 A&P Assessment and plan (1) Impulse control disorder, unspecified: (2) Paranoid reaction, acute: (3) Intellectual disability: (4) Depression: (5) Anxiety: (6) Methamphetamine use disorder, moderate, dependence: Plan This is a 38-year-old white female with a long history of mental health and addiction issues who was hospitalized two months ago with poor social supports, legal issues and homeless now endorsing suicidal ideation with significant history of suicidal attempts. 1. Encourage individual, group and milieu therapy. 2. Recommend sober living treatment at the highest level of care to which the patient is willing to commit. 3. Continue q-15 minute checks for safety.? 4.? Continue paliperidone 9mg daily to target impulsivity. Continue prozac 30mg in am with increase to 40mg in 2-3 days. 5. Patient on 21 day hold. Involuntary Hold Information 2 96 Hour Hold: 96 Hour Involuntary Admission: Yes 96 Hour Hold Ending Date: 07/02/24 96 Hour Hold Ending Time: 23:04 Attestations NPU 2 Medical Necessity Statement*: Inpatient hospitalization is medically necessary and the clinically appropriate intervention at this time. We will monitor and adjust medications as indicated. Her likely length of stay may be longer as we may be in pursuant of state guardianship. Coding Level of Care Code Acute Code for [facility] Fwd Diagnoses Impulse control disorder, unspecified F63.9 Paranoid reaction, acute F23 Intellectual disability F79 Depression F32.A Anxiety F41.9 Methamphetamine use disorder, moderate, dependence F15.20
[2024-07-07 22:00] VITALS: RESP 18
--- NOTE | 2024-07-07 23:40 | PC.NURSE ---
pt resting well unable to obtain vs resp 18
[2024-07-08 06:00] VITALS: BP 124/88; PULSE 67; RESP 18; TEMP 36.7; O2SAT 96
[2024-07-08] MEDS: metformin 500 mg Tablet PO (09:05)
[2024-07-08] MEDS: fluoxetine 20 mg Capsule 40 MG PO (09:05)
[2024-07-08] MEDS: paliperidone ER 9 mg Tablet PO (09:05)
--- NOTE | 2024-07-08 13:56 | P.NPUPN_ITS ---
Subjective NPU 2 Subjective: 38-year-old female with a history of met hamphetamine abuse, depression, and legal problems with a history of poor impulse control, depression and psychosis. Patient continued to perseverate about guardianship stating that she wanted to be temporary and not permanent. She had reported that she needed to have her payment made at the beginning of the month for her walker or storage unit. SETH was completed with the patient requiring assistance in 4 out of 13 areas. The patient was cooperative on the milieu. There is no acts of aggression. She reported no side effects from her medication. Mental Status Exam 2 MSE Comments: This is an obese white female in hospital scrubs with limited grooming and eye contact. No abnormal movements except for mild psychomotor retardation. She was pleasant and cooperative with exam in mild distress. Speech was normal in rate and normal in volume. Mood described as allright. Her affect was euthymic. Thought process was linear. Thought content: Patient endorsed no suicidal thoughts and denied homicidal ideation. There were no delusions reported or noted, she denied auditory or visual hallucinations. Attention and concentration were intact and memory was mostly reliable but none were formally tested. She is alert and oriented x 3. Insight is limited and judgment is limited and impulse control is impaired. Intellectual ability is commensurate with mild cognitive impairment. Vitals/I&O/Wt Last Vital Signs Temp 98.1 F 07/08/24 06:00 Pulse 67 07/08/24 06:00 Resp 18 07/08/24 06:00 BP 124/88 07/08/24 06:00 Pulse Ox 96 07/08/24 06:00 O2 Del Method Room Air 07/08/24 06:00 Data NPU 06/28/24 22:27 06/28/24 22:27 A&P Assessment and plan (1) Impulse control disorder, unspecified: (2) Paranoid reaction, acute: (3) Intellectual disability: (4) Depression: (5) Anxiety: (6) Methamphetamine use disorder, moderate, dependence: Plan This is a 38-year-old white female with a long history of mental health and addiction issues who was hospitalized two months ago with poor social supports, legal issues and homeless now endorsing suicidal ideation with significant history of suicidal attempts. 1. Encourage individual, group and milieu therapy. 2. Recommend sober living treatment at the highest level of care to which the patient is willing to commit. 3. Continue q-15 minute checks for safety.? 4.? Continue paliperidone 9mg daily to target impulsivity. Increase prozac to 40mg daily. 5. Patient on 21 day hold, level 2 to be completed.. Involuntary Hold Information 2 96 Hour Hold: 96 Hour Involuntary Admission: Yes 96 Hour Hold Ending Date: 07/02/24 96 Hour Hold Ending Time: 23:04 Attestations NPU 2 Medical Necessity Statement*: Inpatient hospitalization is medically necessary and the clinically appropriate intervention at this time. We will monitor and adjust medications as indicated. Her likely length of stay may be longer as we may be in pursuant of state guardianship. Coding Level of Care Code Acute Code for [facility] Fwd Diagnoses Impulse control disorder, unspecified F63.9 Paranoid reaction, acute F23 Intellectual disability F79 Depression F32.A Anxiety F41.9 Methamphetamine use disorder, moderate, dependence F15.20
[2024-07-08 14:00] VITALS: BP 137/90; PULSE 88; RESP 18; TEMP 36.7; O2SAT 96
[2024-07-08 20:07] VITALS: BP 110/71; PULSE 90; RESP 18; TEMP 36.7; O2SAT 97
[2024-07-09 04:31] VITALS: BP 120/80; PULSE 90; RESP 15; TEMP 36.7; O2SAT 98
[2024-07-09] MEDS: metformin 500 mg Tablet PO (07:54)
[2024-07-09] MEDS: paliperidone ER 9 mg Tablet PO (07:54)
[2024-07-09] MEDS: fluoxetine 20 mg Capsule 40 MG PO (07:54)
[2024-07-09 14:00] VITALS: BP 128/79; PULSE 79; RESP 16; TEMP 36.7; O2SAT 96
--- NOTE | 2024-07-09 15:55 | P.NPUPN_ITS ---
Subjective NPU 2 Subjective: Patient presented today reporting that she is doing okay. She understands the current process in place for guardianship and placement. She is in agreement with this process and is having no significant issues with knowing she is awaiting certain pieces to be able to move forward. She denies any side effects from the increase in the Prozac or any other medications. Mental Status Exam 2 MSE Comments: This is an obese white female in hospital scrubs with limited grooming and eye contact. No abnormal movements except for mild psychomotor retardation. She was pleasant and cooperative with exam in no acute distress. Speech was normal in rate and normal in volume. Mood described as allright. Her affect was euthymic. Thought process was linear. Thought content: Patient denied suicidal or homicidal ideation. There were no delusions reported or noted, she denied auditory or visual hallucinations. Attention and concentration were intact and memory was mostly reliable but none were formally tested. She is alert and oriented x 3. Insight is limited and judgment is limited and impulse control is impaired. Intellectual ability is commensurate with mild cognitive impairment. Vitals/I&O/Wt Last Vital Signs Temp 98.1 F 07/09/24 14:00 Pulse 79 07/09/24 14:00 Resp 16 07/09/24 14:00 BP 128/79 07/09/24 14:00 Pulse Ox 96 07/09/24 14:00 O2 Del Method Room Air 07/09/24 14:00 Data NPU 06/28/24 22:27 06/28/24 22:27 A&P Assessment and plan (1) Impulse control disorder, unspecified: (2) Paranoid reaction, acute: (3) Intellectual disability: (4) Depression: (5) Anxiety: (6) Methamphetamine use disorder, moderate, dependence: Plan This is a 38-year-old white female with a long history of mental health and addiction issues who was hospitalized two months ago with poor social supports, legal issues and homeless now endorsing suicidal ideation with significant history of suicidal attempts. 1. Encourage individual, group and milieu therapy. 2. Recommend sober living treatment at the highest level of care to which the patient is willing to commit. 3. Continue q-15 minute checks for safety.? 4.? Continue paliperidone 9mg daily to target impulsivity. Increased prozac to 40mg daily. 5. Patient on 21 day hold, level 2 to be completed.. Involuntary Hold Information 2 96 Hour Hold: 96 Hour Involuntary Admission: Yes 96 Hour Hold Ending Date: 07/02/24 96 Hour Hold Ending Time: 23:04 Attestations NPU 2 Medical Necessity Statement*: Inpatient hospitalization is medically necessary and the clinically appropriate intervention at this time. We will monitor and adjust medications as indicated. Her likely length of stay may be longer as we may be in pursuant of state guardianship. Coding Level of Care Code Acute Code for [facility] Fwd Diagnoses Impulse control disorder, unspecified F63.9 Paranoid reaction, acute F23 Intellectual disability F79 Depression F32.A Anxiety F41.9 Methamphetamine use disorder, moderate, dependence F15.20
[2024-07-09 20:49] VITALS: BP 124/81; PULSE 99; RESP 18; TEMP 37.2; O2SAT 95
[2024-07-09] MEDS: trazodone 50 mg Tablet PO (20:49)
[2024-07-10 06:00] VITALS: BP 112/70; PULSE 83; RESP 17; TEMP 37.1; O2SAT 96
--- NOTE | 2024-07-10 07:11 | P.NPUPN_ITS ---
Subjective NPU 2 Medications: Medication Review Details: Patient presented today reporting that she is doing okay. She feels very optimistic about the plans for her to have a guardianship and placement. She reports she is doing well with the medication denied any other issues. She denied any side effects of the medication. Mental Status Exam 2 MSE Comments: This is an obese white female in hospital scrubs with limited grooming and eye contact. No abnormal movements except for mild psychomotor retardation. She was pleasant and cooperative with exam in no acute distress. Speech was normal in rate and normal in volume. Mood described as allright. Her affect was euthymic. Thought process was linear. Thought content: Patient denied suicidal or homicidal ideation. There were no delusions reported or noted, she denied auditory or visual hallucinations. Attention and concentration were intact and memory was mostly reliable but none were formally tested. She is alert and oriented x 3. Insight is limited and judgment is limited and impulse control is impaired. Intellectual ability is commensurate with mild cognitive impairment. Vitals/I&O/Wt Last Vital Signs Temp 98.7 F 07/10/24 06:00 Pulse 83 07/10/24 06:00 Resp 17 07/10/24 06:00 BP 112/70 07/10/24 06:00 Pulse Ox 96 07/10/24 06:00 O2 Del Method Room Air 07/09/24 14:00 Data NPU 06/28/24 22:27 06/28/24 22:27 A&P Assessment and plan (1) Impulse control disorder, unspecified: (2) Paranoid reaction, acute: (3) Intellectual disability: (4) Depression: (5) Anxiety: (6) Methamphetamine use disorder, moderate, dependence: Plan This is a 38-year-old white female with a long history of mental health and addiction issues who was hospitalized two months ago with poor social supports, legal issues and homeless now endorsing suicidal ideation with significant history of suicidal attempts. 1. Encourage individual, group and milieu therapy. 2. Recommend sober living treatment at the highest level of care to which the patient is willing to commit. 3. Continue q-15 minute checks for safety.? 4.? Continue paliperidone 9mg daily to target impulsivity. Increased prozac to 40mg daily. 5. Patient on 21 day hold, level 2 to be completed.. Involuntary Hold Information 2 96 Hour Hold: 96 Hour Involuntary Admission: Yes 96 Hour Hold Ending Date: 07/02/24 96 Hour Hold Ending Time: 23:04 Attestations NPU 2 Medical Necessity Statement*: Inpatient hospitalization is medically necessary and the clinically appropriate intervention at this time. We will monitor and adjust medications as indicated. Her likely length of stay may be longer as we may be in pursuant of state guardianship. Coding Level of Care Code Acute Code for g Fwd Diagnoses Impulse control disorder, unspecified F63.9 Paranoid reaction, acute F23 Intellectual disability F79 Depression F32.A Anxiety F41.9 Methamphetamine use disorder, moderate, dependence F15.20
[2024-07-10] MEDS: fluoxetine 20 mg Capsule 40 MG PO (08:21)
[2024-07-10] MEDS: paliperidone ER 9 mg Tablet PO (08:21)
[2024-07-10] MEDS: metformin 500 mg Tablet PO (08:21)
[2024-07-10 14:00] VITALS: BP 114/82; PULSE 92; RESP 16; TEMP 36.6; O2SAT 97
[2024-07-10] MEDS: trazodone 50 mg Tablet PO (20:07)
[2024-07-10 20:14] VITALS: BP 139/64; PULSE 81; RESP 18; TEMP 36.8; O2SAT 98
[2024-07-11 06:00] VITALS: BP 96/66; PULSE 75; RESP 17; TEMP 36.6; O2SAT 95
[2024-07-11] MEDS: paliperidone ER 9 mg Tablet PO (08:21)
[2024-07-11] MEDS: metformin 500 mg Tablet PO (08:21)
[2024-07-11] MEDS: fluoxetine 20 mg Capsule 40 MG PO (08:21)
[2024-07-11 14:00] VITALS: BP 133/83; PULSE 103; RESP 16; TEMP 36.6; O2SAT 97
--- NOTE | 2024-07-11 17:26 | P.NPUPN_ITS ---
Subjective NPU 2 Subjective: Patient presented today reporting that she is doing fine. She has no new complaints or concerns. She seems to be accepting of her current trajectory per staff reports and direct observation. We discussed her working with the social work team for appropriate [facility]. She denies any side effects to her medications. Mental Status Exam 2 MSE Comments: This is an obese white female in hospital scrubs with limited grooming and eye contact. No abnormal movements except for mild psychomotor retardation. She was pleasant and cooperative with exam in no acute distress. Speech was normal in rate and normal in volume. Mood described as allright. Her affect was euthymic. Thought process was linear. Thought content: Patient denied suicidal or homicidal ideation. There were no delusions reported or noted, she denied auditory or visual hallucinations. Attention and concentration were intact and memory was mostly reliable but none were formally tested. She is alert and oriented x 3. Insight is limited and judgment is limited and impulse control is impaired. Intellectual ability is commensurate with mild cognitive impairment. Vitals/I&O/Wt Last Vital Signs Temp 98 F 07/11/24 14:00 Pulse 103 H 07/11/24 14:00 Resp 16 07/11/24 14:00 BP 133/83 07/11/24 14:00 Pulse Ox 97 07/11/24 14:00 O2 Del Method Room Air 07/11/24 14:00 Weight last 48 hrs Weight 143.244 kg Data NPU 06/28/24 22:27 06/28/24 22:27 A&P Assessment and plan (1) Impulse control disorder, unspecified: (2) Paranoid reaction, acute: (3) Intellectual disability: (4) Depression: (5) Anxiety: (6) Methamphetamine use disorder, moderate, dependence: Plan This is a 38-year-old white female with a long history of mental health and addiction issues who was hospitalized two months ago with poor social supports, legal issues and homeless now endorsing suicidal ideation with significant history of suicidal attempts. 1. Encourage individual, group and milieu therapy. 2. Recommend sober living treatment at the highest level of care to which the patient is willing to commit. 3. Continue q-15 minute checks for safety.? 4.? Continue paliperidone 9mg daily to target impulsivity. Increased prozac to 40mg daily. 5. Patient on 21 day hold, level 2 to be completed.. Involuntary Hold Information 2 96 Hour Hold: 96 Hour Involuntary Admission: Yes 96 Hour Hold Ending Date: 07/02/24 96 Hour Hold Ending Time: 23:04 Attestations NPU 2 Medical Necessity Statement*: Inpatient hospitalization is medically necessary and the clinically appropriate intervention at this time. We will monitor and adjust medications as indicated. Her likely length of stay may be longer as we may be in pursuant of state guardianship. Coding Level of Care Code Acute Code for [facility] Fwd Diagnoses Impulse control disorder, unspecified F63.9 Paranoid reaction, acute F23 Intellectual disability F79 Depression F32.A Anxiety F41.9 Methamphetamine use disorder, moderate, dependence F15.20
[2024-07-11 19:51] VITALS: BP 124/67; PULSE 84; RESP 18; TEMP 36.7; O2SAT 96
[2024-07-11] MEDS: trazodone 50 mg Tablet PO (20:15)
[2024-07-11] MEDS: acetaminophen 325 mg Tablet 650 MG PO (21:49)
[2024-07-12 06:00] VITALS: BP 106/71; PULSE 78; RESP 17; TEMP 36.8; O2SAT 96
[2024-07-12] MEDS: paliperidone ER 9 mg Tablet PO (08:39)
[2024-07-12] MEDS: fluoxetine 20 mg Capsule 40 MG PO (08:39)
[2024-07-12] MEDS: metformin 500 mg Tablet PO (08:39)
[2024-07-12] MEDS: acetaminophen 325 mg Tablet 650 MG PO (12:33)
[2024-07-12 14:00] VITALS: BP 122/84; PULSE 76; RESP 17; TEMP 36.8; O2SAT 96
--- NOTE | 2024-07-12 18:40 | W.PM.NPUPNS ---
Subjective NPU Subjective: Patient presented today continuing to report that she is doing okay. We discussed the fact that the interrogatories are completed and this represents everything we need to do to forward her guardianship/placement logistics. She continues to have no complaints per staff reports and direct observation. She denies any side effects to her medication. Mental Status Exam MSE Comments: This is an obese white female in hospital scrubs with limited grooming and eye contact. No abnormal movements except for mild psychomotor retardation. She was pleasant and cooperative with exam in no acute distress. Speech was normal in rate and normal in volume. Mood described as pretty good. Her affect was euthymic. Thought process was linear. Thought content: Patient denied suicidal or homicidal ideation. There were no delusions reported or noted, she denied auditory or visual hallucinations. Attention and concentration were intact and memory was mostly reliable but none were formally tested. She is alert and oriented x 3. Insight is limited and judgment is limited and impulse control is impaired. Intellectual ability is commensurate with mild cognitive impairment. Vitals/I&O/Wt Last Vital Signs Temp 98.2 F 07/12/24 14:00 Pulse 76 07/12/24 14:00 Resp 17 07/12/24 14:00 BP 122/84 07/12/24 14:00 Pulse Ox 96 07/12/24 14:00 O2 Del Method Room Air 07/11/24 14:00 Weight last 48 hrs Weight 143.244 kg Data NPU 06/28/24 22:27 06/28/24 22:27 A&P Assessment and plan (1) Impulse control disorder, unspecified: (2) Paranoid reaction, acute: (3) Intellectual disability: (4) Depression: (5) Anxiety: (6) Methamphetamine use disorder, moderate, dependence: Plan This is a 38-year-old white female with a long history of mental health and addiction issues who was hospitalized two months ago with poor social supports, legal issues and homeless now endorsing suicidal ideation with significant history of suicidal attempts. 1. Encourage individual, group and milieu therapy. 2. Recommend sober living treatment at the highest level of care to which the patient is willing to commit. 3. Continue q-15 minute checks for safety.? 4.? Continue paliperidone 9mg daily to target impulsivity. Increased prozac to 40mg daily. 5. Patient on 21 day hold, level 2 to be completed. Interrogatories completed today. Involuntary Hold Information 96 Hour Hold: 96 Hour Involuntary Admission: Yes 96 Hour Hold Ending Date: 07/02/24 96 Hour Hold Ending Time: 23:04 Attestations NPU Medical Necessity Statement*: Inpatient hospitalization is medically necessary and the clinically appropriate intervention at this time. We will monitor and adjust medications as indicated. Her likely length of stay may be longer as we may be in pursuant of state guardianship. Coding Level of Care Code Acute Code for [facility] Fwd Diagnoses Impulse control disorder, unspecified F63.9 Paranoid reaction, acute F23 Intellectual disability F79 Depression F32.A Anxiety F41.9 Methamphetamine use disorder, moderate, dependence F15.20
[2024-07-12 19:32] VITALS: BP 100/66; PULSE 79; RESP 18; TEMP 36.7; O2SAT 98
[2024-07-12] MEDS: trazodone 50 mg Tablet PO (19:51)
[2024-07-13 06:00] VITALS: BP 97/64; PULSE 75; RESP 18; TEMP 36.7; O2SAT 95
[2024-07-13] MEDS: paliperidone ER 9 mg Tablet PO (08:06)
[2024-07-13] MEDS: fluoxetine 20 mg Capsule 40 MG PO (08:06)
[2024-07-13] MEDS: metformin 500 mg Tablet PO (08:06)
[2024-07-13 14:00] VITALS: BP 126/82; PULSE 78; RESP 16; TEMP 36.7; O2SAT 96
--- NOTE | 2024-07-13 15:35 | P.NPUPN_ITS ---
Subjective NPU 2 Subjective: Patient presented today reporting that she is doing fairly well. She identified that she is aware of the plan and is not having any issues with her medication or otherwise. She is hopeful that she will be able to get into the program that is being discussed with the social work team. She denied any side effects or medications and reports that she is happy that she will have a definitive residential circumstance at discharge. Mental Status Exam 2 MSE Comments: This is an obese white female in hospital scrubs with limited grooming and eye contact. No abnormal movements except for mild psychomotor retardation. She was pleasant and cooperative with exam in no acute distress. Speech was normal in rate and normal in volume. Mood described as allright. Her affect was euthymic. Thought process was linear. Thought content: Patient denied suicidal or homicidal ideation. There were no delusions reported or noted, she denied auditory or visual hallucinations. Attention and concentration were intact and memory was mostly reliable but none were formally tested. She is alert and oriented x 3. Insight is limited and judgment is limited and impulse control is impaired. Intellectual ability is commensurate with mild cognitive impairment. Vitals/I&O/Wt Last Vital Signs Temp 98.1 F 07/13/24 14:00 Pulse 78 07/13/24 14:00 Resp 16 07/13/24 14:00 BP 126/82 07/13/24 14:00 Pulse Ox 96 07/13/24 14:00 O2 Del Method Room Air 07/13/24 14:00 Data NPU 06/28/24 22:27 06/28/24 22:27 A&P Assessment and plan (1) Impulse control disorder, unspecified: (2) Paranoid reaction, acute: (3) Intellectual disability: (4) Depression: (5) Anxiety: (6) Methamphetamine use disorder, moderate, dependence: Plan This is a 38-year-old white female with a long history of mental health and addiction issues who was hospitalized two months ago with poor social supports, legal issues and homeless now endorsing suicidal ideation with significant history of suicidal attempts. 1. Encourage individual, group and milieu therapy. 2. Recommend sober living treatment at the highest level of care to which the patient is willing to commit. 3. Continue q-15 minute checks for safety.? 4.? Continue paliperidone 9mg daily to target impulsivity. Increased prozac to 40mg daily. 5. Patient on 21 day hold, level 2 to be completed.. Involuntary Hold Information 2 96 Hour Hold: 96 Hour Involuntary Admission: Yes 96 Hour Hold Ending Date: 07/02/24 96 Hour Hold Ending Time: 23:04 Attestations NPU 2 Medical Necessity Statement*: Inpatient hospitalization is medically necessary and the clinically appropriate intervention at this time. We will monitor and adjust medications as indicated. Her likely length of stay may be longer as we may be in pursuant of state guardianship. Coding Level of Care Code Acute Code for g Fwd Diagnoses Impulse control disorder, unspecified F63.9 Paranoid reaction, acute F23 Intellectual disability F79 Depression F32.A Anxiety F41.9 Methamphetamine use disorder, moderate, dependence F15.20
[2024-07-13] MEDS: acetaminophen 325 mg Tablet 650 MG PO (16:46)
[2024-07-13 19:17] VITALS: BP 90/53; PULSE 73; RESP 18; TEMP 36.3; O2SAT 96
[2024-07-13] MEDS: trazodone 50 mg Tablet PO (20:51)
[2024-07-14 06:00] VITALS: BP 116/72; PULSE 75; RESP 16; TEMP 36.7; O2SAT 95
[2024-07-14] MEDS: fluoxetine 20 mg Capsule 40 MG PO (09:14)
[2024-07-14] MEDS: paliperidone ER 9 mg Tablet PO (09:14)
[2024-07-14] MEDS: metformin 500 mg Tablet PO (09:14)
[2024-07-14] MEDS: acetaminophen 325 mg Tablet 650 MG PO (13:56)
[2024-07-14 13:59] VITALS: BP 117/85; PULSE 75; RESP 16; TEMP 37; O2SAT 96
--- NOTE | 2024-07-14 16:02 | P.NPUPN_ITS ---
Subjective NPU 2 Subjective: Patient presented today reporting that things are going okay. She reports being patient and just waiting for her opportunity to go to a new facility. She knows she is likely to have an interview in the next couple of days for [facility]. She denies any side effects of medications and staff deny any problems. Mental Status Exam 2 MSE Comments: This is an obese white female in hospital scrubs with limited grooming and eye contact. No abnormal movements except for mild psychomotor retardation. She was pleasant and cooperative with exam in no acute distress. Speech was normal in rate and normal in volume. Mood described as allright. Her affect was euthymic. Thought process was linear. Thought content: Patient denied suicidal or homicidal ideation. There were no delusions reported or noted, she denied auditory or visual hallucinations. Attention and concentration were intact and memory was mostly reliable but none were formally tested. She is alert and oriented x 3. Insight is limited and judgment is limited and impulse control is impaired. Intellectual ability is commensurate with mild cognitive impairment. Vitals/I&O/Wt Last Vital Signs Temp 98.6 F 07/14/24 13:59 Pulse 75 07/14/24 13:59 Resp 16 07/14/24 13:59 BP 117/85 07/14/24 13:59 Pulse Ox 96 07/14/24 13:59 O2 Del Method Room Air 07/14/24 13:59 Data NPU 06/28/24 22:27 06/28/24 22:27 A&P Assessment and plan (1) Impulse control disorder, unspecified: (2) Paranoid reaction, acute: (3) Intellectual disability: (4) Depression: (5) Anxiety: (6) Methamphetamine use disorder, moderate, dependence: Plan This is a 38-year-old white female with a long history of mental health and addiction issues who was hospitalized two months ago with poor social supports, legal issues and homeless now endorsing suicidal ideation with significant history of suicidal attempts. 1. Encourage individual, group and milieu therapy. 2. Recommend sober living treatment at the highest level of care to which the patient is willing to commit. 3. Continue q-15 minute checks for safety.? 4.? Continue paliperidone 9mg daily to target impulsivity. Increased prozac to 40mg daily. 5. Patient on 21 day hold, level 2 to be completed.. Involuntary Hold Information 2 96 Hour Hold: 96 Hour Involuntary Admission: Yes 96 Hour Hold Ending Date: 07/02/24 96 Hour Hold Ending Time: 23:04 Attestations NPU 2 Medical Necessity Statement*: Inpatient hospitalization is medically necessary and the clinically appropriate intervention at this time. We will monitor and adjust medications as indicated. Her likely length of stay may be longer as we may be in pursuant of state guardianship. Coding Level of Care Code Acute Code for [facility] Fwd Diagnoses Impulse control disorder, unspecified F63.9 Paranoid reaction, acute F23 Intellectual disability F79 Depression F32.A Anxiety F41.9 Methamphetamine use disorder, moderate, dependence F15.20
[2024-07-14 19:39] VITALS: BP 108/67; PULSE 84; RESP 15; O2SAT 95
[2024-07-14] MEDS: trazodone 50 mg Tablet PO (20:57)
[2024-07-15 06:00] VITALS: BP 125/83; PULSE 86; RESP 20; O2SAT 95
[2024-07-15] MEDS: fluoxetine 20 mg Capsule 40 MG PO (08:33)
[2024-07-15] MEDS: metformin 500 mg Tablet PO (08:33)
[2024-07-15] MEDS: paliperidone ER 9 mg Tablet PO (08:33)
[2024-07-15 14:00] VITALS: BP 136/87; PULSE 78; RESP 15; TEMP 36.5; O2SAT 97
--- NOTE | 2024-07-15 15:02 | P.NPUPN_ITS ---
Subjective NPU 2 Subjective: Patient presented today reporting that she is feeling fairly good and is denying any issues. We discussed [facility] interview with [facility] and she reports doing really well. She believes she has been accepted. She denies any issues with her medications and looks forward to this transition. She denied any side effects of medication. Mental Status Exam 2 MSE Comments: This is an obese white female in hospital scrubs with limited grooming and eye contact. No abnormal movements except for mild psychomotor retardation. She was pleasant and cooperative with exam in no acute distress. Speech was normal in rate and normal in volume. Mood described as allright. Her affect was euthymic. Thought process was linear. Thought content: Patient denied suicidal or homicidal ideation. There were no delusions reported or noted, she denied auditory or visual hallucinations. Attention and concentration were intact and memory was mostly reliable but none were formally tested. She is alert and oriented x 3. Insight is limited and judgment is limited and impulse control is impaired. Intellectual ability is commensurate with mild cognitive impairment. Vitals/I&O/Wt Last Vital Signs Temp 98.6 F 07/14/24 13:59 Pulse 86 07/15/24 06:00 Resp 20 H 07/15/24 06:00 BP 125/83 07/15/24 06:00 Pulse Ox 95 07/15/24 06:00 O2 Del Method Room Air 07/15/24 06:00 Data NPU 06/28/24 22:27 06/28/24 22:27 A&P Assessment and plan (1) Impulse control disorder, unspecified: (2) Paranoid reaction, acute: (3) Intellectual disability: (4) Depression: (5) Anxiety: (6) Methamphetamine use disorder, moderate, dependence: Plan This is a 38-year-old white female with a long history of mental health and addiction issues who was hospitalized two months ago with poor social supports, legal issues and homeless now endorsing suicidal ideation with significant history of suicidal attempts. 1. Encourage individual, group and milieu therapy. 2. Recommend sober living treatment at the highest level of care to which the patient is willing to commit. 3. Continue q-15 minute checks for safety.? 4.? Continue paliperidone 9mg daily to target impulsivity. Increased prozac to 40mg daily. 5. Patient on 21 day hold, level 2 to be completed. 6. Guardianship and level 2 underway. [facility] has been [facility]. Involuntary Hold Information 2 96 Hour Hold: 96 Hour Involuntary Admission: Yes 96 Hour Hold Ending Date: 07/02/24 96 Hour Hold Ending Time: 23:04 Attestations NPU 2 Medical Necessity Statement*: Inpatient hospitalization is medically necessary and the clinically appropriate intervention at this time. We will monitor and adjust medications as indicated. Her likely length of stay may be longer as we may be in pursuant of state guardianship. Coding Level of Care Code Acute Code for [facility] Fwd Diagnoses Impulse control disorder, unspecified F63.9 Paranoid reaction, acute F23 Intellectual disability F79 Depression F32.A Anxiety F41.9 Methamphetamine use disorder, moderate, dependence F15.20
[2024-07-15 20:14] VITALS: BP 122/78; PULSE 78; RESP 18; TEMP 36.4; O2SAT 95
[2024-07-15] MEDS: trazodone 50 mg Tablet PO (20:52)
[2024-07-16 06:00] VITALS: BP 130/81; PULSE 93; RESP 18; TEMP 37; O2SAT 95
[2024-07-16] MEDS: fluoxetine 20 mg Capsule 40 MG PO (08:29)
[2024-07-16] MEDS: metformin 500 mg Tablet PO (08:29)
[2024-07-16] MEDS: paliperidone ER 9 mg Tablet PO (08:29)
[2024-07-16 14:00] VITALS: BP 129/79; PULSE 84; RESP 16; TEMP 36.6; O2SAT 96
--- NOTE | 2024-07-16 18:42 | P.NPUPN_ITS ---
Subjective NPU 2 Subjective: Patient presented today reporting that she is feeling like she is doing well. She denied any issues or problems. She continues to be excited about going to the [facility] which [facility] they have excepted her. She is optimistic about the future and is awaiting the process understanding the rest of the timeline is out of our control. Not any side effects of medications. Mental Status Exam 2 MSE Comments: This is an obese white female in hospital scrubs with limited grooming and eye contact. No abnormal movements except for mild psychomotor retardation. She was pleasant and cooperative with exam in no acute distress. Speech was normal in rate and normal in volume. Mood described as allright. Her affect was euthymic. Thought process was linear. Thought content: Patient denied suicidal or homicidal ideation. There were no delusions reported or noted, she denied auditory or visual hallucinations. Attention and concentration were intact and memory was mostly reliable but none were formally tested. She is alert and oriented x 3. Insight is limited and judgment is limited and impulse control is impaired. Intellectual ability is commensurate with mild cognitive impairment. Vitals/I&O/Wt Last Vital Signs Temp 98 F 07/16/24 14:00 Pulse 84 07/16/24 14:00 Resp 16 07/16/24 14:00 BP 129/79 07/16/24 14:00 Pulse Ox 96 07/16/24 14:00 O2 Del Method Room Air 07/16/24 14:00 Data NPU 06/28/24 22:27 06/28/24 22:27 A&P Assessment and plan (1) Impulse control disorder, unspecified: (2) Paranoid reaction, acute: (3) Intellectual disability: (4) Depression: (5) Anxiety: (6) Methamphetamine use disorder, moderate, dependence: Plan This is a 38-year-old white female with a long history of mental health and addiction issues who was hospitalized two months ago with poor social supports, legal issues and homeless now endorsing suicidal ideation with significant history of suicidal attempts. 1. Encourage individual, group and milieu therapy. 2. Recommend sober living treatment at the highest level of care to which the patient is willing to commit. 3. Continue q-15 minute checks for safety.? 4.? Continue paliperidone 9mg daily to target impulsivity. Increased prozac to 40mg daily. 5. Patient on 21 day hold, level 2 to be completed. 6. Guardianship and level 2 underway. [facility] at [facility]. Involuntary Hold Information 2 96 Hour Hold: 96 Hour Involuntary Admission: Yes 96 Hour Hold Ending Date: 07/02/24 96 Hour Hold Ending Time: 23:04 Attestations NPU 2 Medical Necessity Statement*: Inpatient hospitalization is medically necessary and the clinically appropriate intervention at this time. We will monitor and adjust medications as indicated. Her likely length of stay may be longer as we may be in pursuant of state guardianship. Coding Level of Care Code Acute Code for g Fwd Diagnoses Impulse control disorder, unspecified F63.9 Paranoid reaction, acute F23 Intellectual disability F79 Depression F32.A Anxiety F41.9 Methamphetamine use disorder, moderate, dependence F15.20
[2024-07-16 20:43] VITALS: BP 110/64; PULSE 88; RESP 17; TEMP 36.7; O2SAT 95
[2024-07-17 06:00] VITALS: BP 93/59; PULSE 78; RESP 18; TEMP 36.6; O2SAT 95
--- NOTE | 2024-07-17 08:05 | P.NPUPN_ITS ---
Subjective NPU 2 Subjective: Patient presented today reporting that she is doing okay. She denied any changes, denied any side effects of medications and reported that she is still feeling really good about plans of her going to [facility]. Mental Status Exam 2 MSE Comments: This is an obese white female in hospital scrubs with limited grooming and eye contact. No abnormal movements except for mild psychomotor retardation. She was pleasant and cooperative with exam in no acute distress. Speech was normal in rate and normal in volume. Mood described as allright. Her affect was euthymic. Thought process was linear. Thought content: Patient denied suicidal or homicidal ideation. There were no delusions reported or noted, she denied auditory or visual hallucinations. Attention and concentration were intact and memory was mostly reliable but none were formally tested. She is alert and oriented x 3. Insight is limited and judgment is limited and impulse control is impaired. Intellectual ability is commensurate with mild cognitive impairment. Vitals/I&O/Wt Last Vital Signs Temp 97.8 F 07/17/24 06:00 Pulse 78 07/17/24 06:00 Resp 18 07/17/24 06:00 BP 93/59 07/17/24 06:00 Pulse Ox 95 07/17/24 06:00 O2 Del Method Room Air 07/17/24 06:00 Weight last 48 hrs Weight 146.238 kg Data NPU 06/28/24 22:27 06/28/24 22:27 A&P Assessment and plan (1) Impulse control disorder, unspecified: (2) Paranoid reaction, acute: (3) Intellectual disability: (4) Depression: (5) Anxiety: (6) Methamphetamine use disorder, moderate, dependence: Plan This is a 38-year-old white female with a long history of mental health and addiction issues who was hospitalized two months ago with poor social supports, legal issues and homeless now endorsing suicidal ideation with significant history of suicidal attempts. 1. Encourage individual, group and milieu therapy. 2. Recommend sober living treatment at the highest level of care to which the patient is willing to commit. 3. Continue q-15 minute checks for safety.? 4.? Continue paliperidone 9mg daily to target impulsivity. Increased prozac to 40mg daily. 5. Patient on 21 day hold, level 2 to be completed. 6. Guardianship and level 2 underway. [facility] at [facility]. Involuntary Hold Information 2 96 Hour Hold: 96 Hour Involuntary Admission: Yes 96 Hour Hold Ending Date: 07/02/24 96 Hour Hold Ending Time: 23:04 Attestations NPU 2 Medical Necessity Statement*: Inpatient hospitalization is medically necessary and the clinically appropriate intervention at this time. We will monitor and adjust medications as indicated. Her likely length of stay may be longer as we may be in pursuant of state guardianship. Coding Level of Care Code Acute Code for [facility] Fwd Diagnoses Impulse control disorder, unspecified F63.9 Paranoid reaction, acute F23 Intellectual disability F79 Depression F32.A Anxiety F41.9 Methamphetamine use disorder, moderate, dependence F15.20
[2024-07-17] MEDS: paliperidone ER 9 mg Tablet PO (08:37)
[2024-07-17] MEDS: fluoxetine 20 mg Capsule 40 MG PO (08:37)
[2024-07-17] MEDS: metformin 500 mg Tablet PO (08:37)
[2024-07-17 14:00] VITALS: BP 121/79; PULSE 80; RESP 17; TEMP 36.9; O2SAT 95
[2024-07-17 19:47] VITALS: BP 134/84; PULSE 86; RESP 18; TEMP 36.8; O2SAT 97
[2024-07-17] MEDS: trazodone 50 mg Tablet PO (20:07)
[2024-07-18 06:00] VITALS: BP 115/71; PULSE 83; RESP 18; TEMP 36.6; O2SAT 96
[2024-07-18] MEDS: metformin 500 mg Tablet PO (09:03)
[2024-07-18] MEDS: paliperidone ER 9 mg Tablet PO (09:03)
[2024-07-18] MEDS: fluoxetine 20 mg Capsule 40 MG PO (09:03)
--- NOTE | 2024-07-18 12:08 | P.NPUPN_ITS ---
Subjective NPU 2 Subjective: Patient presented today reporting that she is doing okay. She and her roommate are being supportive of 1 another and that has been helpful. She reports that she is continuing to be optimistic about how things will be at the [facility]. She reports feeling good about her decision to come to the hospital and come back to the inpatient unit. She denies any side effects to her medications. Mental Status Exam 2 MSE Comments: This is an obese white female in hospital scrubs with limited grooming and eye contact. No abnormal movements except for mild psychomotor retardation. She was pleasant and cooperative with exam in no acute distress. Speech was normal in rate and normal in volume. Mood described as allright. Her affect was euthymic. Thought process was linear. Thought content: Patient denied suicidal or homicidal ideation. There were no delusions reported or noted, she denied auditory or visual hallucinations. Attention and concentration were intact and memory was mostly reliable but none were formally tested. She is alert and oriented x 3. Insight is limited and judgment is limited and impulse control is impaired. Intellectual ability is commensurate with mild cognitive impairment. Vitals/I&O/Wt Last Vital Signs Temp 97.9 F 07/18/24 06:00 Pulse 83 07/18/24 06:00 Resp 18 07/18/24 06:00 BP 115/71 07/18/24 06:00 Pulse Ox 96 07/18/24 06:00 O2 Del Method Room Air 07/17/24 06:00 Weight last 48 hrs Weight 146.238 kg Data NPU 06/28/24 22:27 06/28/24 22:27 A&P Assessment and plan (1) Impulse control disorder, unspecified: (2) Paranoid reaction, acute: (3) Intellectual disability: (4) Depression: (5) Anxiety: (6) Methamphetamine use disorder, moderate, dependence: Plan This is a 38-year-old white female with a long history of mental health and addiction issues who was hospitalized two months ago with poor social supports, legal issues and homeless now endorsing suicidal ideation with significant history of suicidal attempts. 1. Encourage individual, group and milieu therapy. 2. Recommend sober living treatment at the highest level of care to which the patient is willing to commit. 3. Continue q-15 minute checks for safety.? 4.? Continue paliperidone 9mg daily to target impulsivity. Increased prozac to 40mg daily. 5. Patient on 21 day hold, level 2 to be completed. 6. Guardianship and level 2 underway. Patient has been accepted at the [facility]. Involuntary Hold Information 2 96 Hour Hold: 96 Hour Involuntary Admission: Yes 96 Hour Hold Ending Date: 07/02/24 96 Hour Hold Ending Time: 23:04 Attestations NPU 2 Medical Necessity Statement*: Inpatient hospitalization is medically necessary and the clinically appropriate intervention at this time. We will monitor and adjust medications as indicated. Her likely length of stay may be longer as we may be in pursuant of state guardianship. Coding Level of Care Code Acute Code for Chg Fwd Diagnoses Impulse control disorder, unspecified F63.9 Paranoid reaction, acute F23 Intellectual disability F79 Depression F32.A Anxiety F41.9 Methamphetamine use disorder, moderate, dependence F15.20
[2024-07-18] MEDS: ibuprofen 600 mg Tablet PO (13:20)
[2024-07-18 14:00] VITALS: BP 124/81; PULSE 79; RESP 17; TEMP 36.8; O2SAT 97
[2024-07-18] MEDS: trazodone 50 mg Tablet PO (20:23)
[2024-07-18 20:59] VITALS: BP 133/88; PULSE 72; RESP 18; O2SAT 97
[2024-07-19 06:00] VITALS: BP 105/66; PULSE 73; RESP 17; TEMP 36.6; O2SAT 96
--- NOTE | 2024-07-19 07:40 | P.NPUPN_ITS ---
Subjective NPU 2 Subjective: Patient presented today reporting that she is doing okay. She denied any challenges at this time. She is being patient and awaiting her guardianship per staff reports and direct observation. She denies any side effects to the medication. Mental Status Exam 2 MSE Comments: This is an obese white female in hospital scrubs with limited grooming and eye contact. No abnormal movements except for mild psychomotor retardation. She was pleasant and cooperative with exam in no acute distress. Speech was normal in rate and normal in volume. Mood described as allright. Her affect was euthymic. Thought process was linear. Thought content: Patient denied suicidal or homicidal ideation. There were no delusions reported or noted, she denied auditory or visual hallucinations. Attention and concentration were intact and memory was mostly reliable but none were formally tested. She is alert and oriented x 3. Insight is limited and judgment is limited and impulse control is impaired. Intellectual ability is commensurate with mild cognitive impairment. Vitals/I&O/Wt Last Vital Signs Temp 97.9 F 07/19/24 06:00 Pulse 73 07/19/24 06:00 Resp 17 07/19/24 06:00 BP 105/66 07/19/24 06:00 Pulse Ox 96 07/19/24 06:00 O2 Del Method Room Air 07/17/24 06:00 Weight last 48 hrs Weight 146.238 kg Data NPU 06/28/24 22:27 06/28/24 22:27 A&P Assessment and plan (1) Impulse control disorder, unspecified: (2) Paranoid reaction, acute: (3) Intellectual disability: (4) Depression: (5) Anxiety: (6) Methamphetamine use disorder, moderate, dependence: Plan This is a 38-year-old white female with a long history of mental health and addiction issues who was hospitalized two months ago with poor social supports, legal issues and homeless now endorsing suicidal ideation with significant history of suicidal attempts. 1. Encourage individual, group and milieu therapy. 2. Recommend sober living treatment at the highest level of care to which the patient is willing to commit. 3. Continue q-15 minute checks for safety.? 4.? Continue paliperidone 9mg daily to target impulsivity. Increased prozac to 40mg daily. 5. Patient on 21 day hold, level 2 to be completed. 6. Guardianship and level 2 underway. [facility] has [facility]. Involuntary Hold Information 2 96 Hour Hold: 96 Hour Involuntary Admission: Yes 96 Hour Hold Ending Date: 07/02/24 96 Hour Hold Ending Time: 23:04 Attestations NPU 2 Medical Necessity Statement*: Inpatient hospitalization is medically necessary and the clinically appropriate intervention at this time. We will monitor and adjust medications as indicated. Her likely length of stay may be longer as we may be in pursuant of state guardianship. Coding Level of Care Code Acute Code for [facility] Fwd Diagnoses Impulse control disorder, unspecified F63.9 Paranoid reaction, acute F23 Intellectual disability F79 Depression F32.A Anxiety F41.9 Methamphetamine use disorder, moderate, dependence F15.20
[2024-07-19] MEDS: paliperidone ER 9 mg Tablet PO (08:39)
[2024-07-19] MEDS: fluoxetine 20 mg Capsule 40 MG PO (08:39)
[2024-07-19] MEDS: metformin 500 mg Tablet PO (08:39)
[2024-07-19 14:00] VITALS: BP 126/85; PULSE 86; RESP 16; TEMP 36.4; O2SAT 98
[2024-07-19] MEDS: trazodone 50 mg Tablet PO (19:50)
[2024-07-19 20:57] VITALS: BP 103/61; PULSE 77; RESP 15; TEMP 36.6; O2SAT 96
[2024-07-20 06:00] VITALS: BP 94/52; PULSE 75; RESP 16; TEMP 36.6; O2SAT 95
--- NOTE | 2024-07-20 07:13 | P.NPUPN_ITS ---
Subjective NPU 2 Subjective: Patient presented today reporting that she is doing okay. There have been no changes and she just awaits her guardianship hearing. She has been accepted to the facility which she knows and is very happy about. She denies any problems or any side effects to the medications. Mental Status Exam 2 MSE Comments: This is an obese white female in hospital scrubs with limited grooming and eye contact. No abnormal movements except for mild psychomotor retardation. She was pleasant and cooperative with exam in no acute distress. Speech was normal in rate and normal in volume. Mood described as allright. Her affect was euthymic. Thought process was linear. Thought content: Patient denied suicidal or homicidal ideation. There were no delusions reported or noted, she denied auditory or visual hallucinations. Attention and concentration were intact and memory was mostly reliable but none were formally tested. She is alert and oriented x 3. Insight is limited and judgment is limited and impulse control is impaired. Intellectual ability is commensurate with mild cognitive impairment. Vitals/I&O/Wt Last Vital Signs Temp 97.8 F 07/20/24 06:00 Pulse 75 07/20/24 06:00 Resp 16 07/20/24 06:00 BP 94/52 07/20/24 06:00 Pulse Ox 95 07/20/24 06:00 O2 Del Method Room Air 07/19/24 20:57 Data NPU 06/28/24 22:27 06/28/24 22:27 A&P Assessment and plan (1) Impulse control disorder, unspecified: (2) Paranoid reaction, acute: (3) Intellectual disability: (4) Depression: (5) Anxiety: (6) Methamphetamine use disorder, moderate, dependence: Plan This is a 38-year-old white female with a long history of mental health and addiction issues who was hospitalized two months ago with poor social supports, legal issues and homeless now endorsing suicidal ideation with significant history of suicidal attempts. 1. Encourage individual, group and milieu therapy. 2. Recommend sober living treatment at the highest level of care to which the patient is willing to commit. 3. Continue q-15 minute checks for safety.? 4.? Continue paliperidone 9mg daily to target impulsivity. Increased prozac to 40mg daily. 5. Patient on 21 day hold, level 2 to be completed. Will have to file for a 90-day hold. 6. Guardianship and level 2 underway. Patient has been [facility]. Hopeful for the guardianship hearing this week or at the latest next. Involuntary Hold Information 2 96 Hour Hold: 96 Hour Involuntary Admission: Yes 96 Hour Hold Ending Date: 07/02/24 96 Hour Hold Ending Time: 23:04 Attestations NPU 2 Medical Necessity Statement*: Inpatient hospitalization is medically necessary and the clinically appropriate intervention at this time. We will monitor and adjust medications as indicated. Her likely length of stay may be longer as we may be in pursuant of state guardianship. Coding Level of Care Code Acute Code for [facility] Fwd Diagnoses Impulse control disorder, unspecified F63.9 Paranoid reaction, acute F23 Intellectual disability F79 Depression F32.A Anxiety F41.9 Methamphetamine use disorder, moderate, dependence F15.20
[2024-07-20] MEDS: metformin 500 mg Tablet PO (08:35)
[2024-07-20] MEDS: paliperidone ER 9 mg Tablet PO (08:35)
[2024-07-20] MEDS: ibuprofen 600 mg Tablet PO (08:35)
[2024-07-20] MEDS: fluoxetine 20 mg Capsule 40 MG PO (08:35)
[2024-07-20 13:59] VITALS: BP 137/89; PULSE 89; RESP 16; TEMP 36.6; O2SAT 97
[2024-07-20 19:26] VITALS: BP 99/63; PULSE 88; RESP 18; TEMP 36.9; O2SAT 96
[2024-07-20] MEDS: trazodone 50 mg Tablet PO (19:36)
[2024-07-21 06:00] VITALS: BP 113/75; PULSE 77; RESP 18; TEMP 36.5; O2SAT 97
--- NOTE | 2024-07-21 07:20 | P.NPUPN_ITS ---
Subjective NPU 2 Subjective: Patient presented today reporting that she is doing okay. We discussed her seeming a bit stiff and encouraged use of the as needed Cogentin. We discussed the risk benefits and alternatives of that or an alternative medication like Benadryl or amantadine and she understood and agreed to proceed as is documented in this note. We continue to discuss her likely discharge soon as her level 2 is complete we are just awaiting her guardianship hearing. She denied any side effects of the medication. Mental Status Exam 2 MSE Comments: This is an obese white female in hospital scrubs with limited grooming and eye contact. No abnormal movements except for mild psychomotor retardation. She was pleasant and cooperative with exam in no acute distress. Speech was normal in rate and normal in volume. Mood described as allright. Her affect was euthymic. Thought process was linear. Thought content: Patient denied suicidal or homicidal ideation. There were no delusions reported or noted, she denied auditory or visual hallucinations. Attention and concentration were intact and memory was mostly reliable but none were formally tested. She is alert and oriented x 3. Insight is limited and judgment is limited and impulse control is impaired. Intellectual ability is commensurate with mild cognitive impairment. Vitals/I&O/Wt Last Vital Signs Temp 97.7 F 07/21/24 06:00 Pulse 77 07/21/24 06:00 Resp 18 07/21/24 06:00 BP 113/75 07/21/24 06:00 Pulse Ox 97 07/21/24 06:00 O2 Del Method Room Air 07/21/24 06:00 Data NPU 06/28/24 22:27 06/28/24 22:27 A&P Assessment and plan (1) Impulse control disorder, unspecified: (2) Paranoid reaction, acute: (3) Intellectual disability: (4) Depression: (5) Anxiety: (6) Methamphetamine use disorder, moderate, dependence: Plan This is a 38-year-old white female with a long history of mental health and addiction issues who was hospitalized two months ago with poor social supports, legal issues and homeless now endorsing suicidal ideation with significant history of suicidal attempts. 1. Encourage individual, group and milieu therapy. 2. Recommend sober living treatment at the highest level of care to which the patient is willing to commit. 3. Continue q-15 minute checks for safety.? 4.? Continue paliperidone 9mg daily to target impulsivity. Increased prozac to 40mg daily. 5. Patient on 21 day hold, level 2 to be completed. Will have to file for a 90-day hold. 6. Guardianship and level 2 underway. Patient has been [facility]. Hopeful for the guardianship hearing next week. Involuntary Hold Information 2 96 Hour Hold: 96 Hour Involuntary Admission: Yes 96 Hour Hold Ending Date: 07/02/24 96 Hour Hold Ending Time: 23:04 Attestations NPU 2 Medical Necessity Statement*: Inpatient hospitalization is medically necessary and the clinically appropriate intervention at this time. We will monitor and adjust medications as indicated. Her likely length of stay may be longer as we may be in pursuant of state guardianship. Coding Level of Care Code Acute Code for [facility] Fwd Diagnoses Impulse control disorder, unspecified F63.9 Paranoid reaction, acute F23 Intellectual disability F79 Depression F32.A Anxiety F41.9 Methamphetamine use disorder, moderate, dependence F15.20
[2024-07-21] MEDS: paliperidone ER 9 mg Tablet PO (07:57)
[2024-07-21] MEDS: metformin 500 mg Tablet PO (07:57)
[2024-07-21] MEDS: fluoxetine 20 mg Capsule 40 MG PO (07:58)
[2024-07-21] MEDS: benztropine 1 mg Tablet PO (11:46)
[2024-07-21 14:00] VITALS: BP 123/82; PULSE 86; RESP 18; O2SAT 96
[2024-07-21 20:12] VITALS: BP 121/82; PULSE 83; RESP 18; TEMP 36.6; O2SAT 95
[2024-07-21] MEDS: trazodone 50 mg Tablet PO (20:30)
[2024-07-22 06:00] VITALS: BP 97/59; PULSE 65; RESP 18; O2SAT 95
--- NOTE | 2024-07-22 08:31 | W.PM.NPUPNS ---
Subjective NPU Subjective: Patient presented to the appointment today reporting that she is doing okay. We discussed her timeline and the likelihood that she would be here until hopefully the hearing is given to her next week. She was started with her 90-day paperwork which, freaked her out because she thought it meant she was actually staying here for 90 days and we have been lying to her. She denies any side effects of medication Mental Status Exam MSE Comments: This is an obese white female in hospital scrubs with limited grooming and eye contact. No abnormal movements except for mild psychomotor retardation. She was pleasant and cooperative with exam in no acute distress. Speech was normal in rate and normal in volume. Mood described as allright. Her affect was euthymic. Thought process was linear. Thought content: Patient denied suicidal or homicidal ideation. There were no delusions reported or noted, she denied auditory or visual hallucinations. Attention and concentration were intact and memory was mostly reliable but none were formally tested. She is alert and oriented x 3. Insight is limited and judgment is limited and impulse control is impaired. Intellectual ability is commensurate with mild cognitive impairment. Vitals/I&O/Wt Last Vital Signs Temp 97.8 F 07/21/24 20:12 Pulse 65 07/22/24 06:00 Resp 18 07/22/24 06:00 BP 97/59 07/22/24 06:00 Pulse Ox 95 07/22/24 06:00 O2 Del Method Room Air 07/21/24 06:00 Data NPU 06/28/24 22:27 06/28/24 22:27 A&P Assessment and plan (1) Impulse control disorder, unspecified: (2) Paranoid reaction, acute: (3) Intellectual disability: (4) Depression: (5) Anxiety: (6) Methamphetamine use disorder, moderate, dependence: Plan This is a 38-year-old white female with a long history of mental health and addiction issues who was hospitalized two months ago with poor social supports, legal issues and homeless now endorsing suicidal ideation with significant history of suicidal attempts. 1. Encourage individual, group and milieu therapy. 2. Recommend sober living treatment at the highest level of care to which the patient is willing to commit. 3. Continue q-15 minute checks for safety.? 4.? Continue paliperidone 9mg daily to target impulsivity. Increased prozac to 40mg daily. 5. Patient on 21 day hold, level 2 to be completed. Will have to file for a 90-day hold. 6. Guardianship and level 2 underway. [facility]. Hopeful for the guardianship hearing next week. Involuntary Hold Information 96 Hour Hold: 96 Hour Involuntary Admission: Yes 96 Hour Hold Ending Date: 07/02/24 96 Hour Hold Ending Time: 23:04 Attestations NPU Medical Necessity Statement*: Inpatient hospitalization is medically necessary and the clinically appropriate intervention at this time. We will monitor and adjust medications as indicated. Her likely length of stay may be longer as we may be in pursuant of state guardianship. Coding Level of Care Code Acute Code for [facility] Fwd Diagnoses Impulse control disorder, unspecified F63.9 Paranoid reaction, acute F23 Intellectual disability F79 Depression F32.A Anxiety F41.9 Methamphetamine use disorder, moderate, dependence F15.20
[2024-07-22] MEDS: paliperidone ER 9 mg Tablet PO (08:38)
[2024-07-22] MEDS: metformin 500 mg Tablet PO (08:38)
[2024-07-22] MEDS: fluoxetine 20 mg Capsule 40 MG PO (08:39)
[2024-07-22 14:00] VITALS: BP 125/81; PULSE 75; RESP 18; TEMP 37.1; O2SAT 97
[2024-07-22 19:49] VITALS: BP 140/81; PULSE 77; RESP 18; TEMP 36.4; O2SAT 97
[2024-07-22] MEDS: trazodone 50 mg Tablet PO (20:12)
[2024-07-23 06:00] VITALS: BP 90/60; PULSE 60; RESP 16; O2SAT 97
--- NOTE | 2024-07-23 06:35 | P.NPUPN_ITS ---
Subjective NPU 2 Subjective: Patient presented today reporting that she is doing okay. She did have a moment yesterday when she was served for her 90-day hold and she was confused and thinking that we had gone back on our agreement to get her over to the [facility] as soon as possible. We discussed the fact that the hearing was a formality in the process of getting into the facility. She did not resist the 90-day hold at the hearing. She reports her medications are going well and she denied any side effects to them. Mental Status Exam 2 MSE Comments: This is an obese white female in hospital scrubs with limited grooming and eye contact. No abnormal movements except for mild psychomotor retardation. She was pleasant and cooperative with exam in no acute distress. Speech was normal in rate and normal in volume. Mood described as allright. Her affect was euthymic. Thought process was linear. Thought content: Patient denied suicidal or homicidal ideation. There were no delusions reported or noted, she denied auditory or visual hallucinations. Attention and concentration were intact and memory was mostly reliable but none were formally tested. She is alert and oriented x 3. Insight is limited and judgment is limited and impulse control is impaired. Intellectual ability is commensurate with mild cognitive impairment. Vitals/I&O/Wt Last Vital Signs Temp 97.5 F L 07/22/24 19:49 Pulse 60 07/23/24 06:00 Resp 16 07/23/24 06:00 BP 90/60 07/23/24 06:00 Pulse Ox 97 07/23/24 06:00 O2 Del Method Room Air 07/21/24 06:00 Data NPU 06/28/24 22:27 06/28/24 22:27 A&P Assessment and plan (1) Impulse control disorder, unspecified: (2) Paranoid reaction, acute: (3) Intellectual disability: (4) Depression: (5) Anxiety: (6) Methamphetamine use disorder, moderate, dependence: Plan This is a 38-year-old white female with a long history of mental health and addiction issues who was hospitalized two months ago with poor social supports, legal issues and homeless now endorsing suicidal ideation with significant history of suicidal attempts. 1. Encourage individual, group and milieu therapy. 2. Recommend sober living treatment at the highest level of care to which the patient is willing to commit. 3. Continue q-15 minute checks for safety.? 4.? Continue paliperidone 9mg daily to target impulsivity. Increased prozac to 40mg daily. 5. Patient on 21 day hold, level 2 to be completed. 90-day hold granted. 6. Guardianship and level 2 underway. [facility]. Hopeful for the guardianship hearing next week. Involuntary Hold Information 2 96 Hour Hold: 96 Hour Involuntary Admission: Yes 96 Hour Hold Ending Date: 07/02/24 96 Hour Hold Ending Time: 23:04 Attestations NPU 2 Medical Necessity Statement*: Inpatient hospitalization is medically necessary and the clinically appropriate intervention at this time. We will monitor and adjust medications as indicated. Her likely length of stay may be longer as we may be in pursuant of state guardianship. Coding Level of Care Code Acute Code for [facility] Fwd Diagnoses Impulse control disorder, unspecified F63.9 Paranoid reaction, acute F23 Intellectual disability F79 Depression F32.A Anxiety F41.9 Methamphetamine use disorder, moderate, dependence F15.20
[2024-07-23] MEDS: metformin 500 mg Tablet PO (07:59)
[2024-07-23] MEDS: fluoxetine 20 mg Capsule 40 MG PO (07:59)
[2024-07-23] MEDS: paliperidone ER 9 mg Tablet PO (07:59)
[2024-07-23 14:00] VITALS: BP 132/86; PULSE 93; RESP 16; TEMP 36.9; O2SAT 97
[2024-07-23] MEDS: hyDROXYzine 25 mg Capsule 50 MG PO (17:15)
[2024-07-23] MEDS: trazodone 50 mg Tablet PO (20:10)
[2024-07-23 21:20] VITALS: BP 101/64; PULSE 82; RESP 20; TEMP 36.5; O2SAT 95
[2024-07-24 06:00] VITALS: BP 105/63; PULSE 72; RESP 15; O2SAT 96
[2024-07-24] MEDS: metformin 500 mg Tablet PO (08:23)
[2024-07-24] MEDS: paliperidone ER 9 mg Tablet PO (08:23)
[2024-07-24] MEDS: fluoxetine 20 mg Capsule 40 MG PO (08:23)
[2024-07-24 13:45] VITALS: BP 132/83; PULSE 85; RESP 16; TEMP 36.4; O2SAT 96
--- NOTE | 2024-07-24 17:47 | P.NPUPN_ITS ---
Subjective NPU 2 Subjective: Patient presented today reporting that things are going well. She continues to be optimistic about a hearing date sooner rather than later. We had a long discussion about the resources that are available at the [facility] and she continues to report a plan to do as well as possible to demonstrate that she does not need lifetime guardianship. Otherwise she denied any side effects to the medications. Mental Status Exam 2 MSE Comments: This is an obese white female in hospital scrubs with limited grooming and eye contact. No abnormal movements except for mild psychomotor retardation. She was pleasant and cooperative with exam in no acute distress. Speech was normal in rate and normal in volume. Mood described as allright. Her affect was euthymic. Thought process was linear. Thought content: Patient denied suicidal or homicidal ideation. There were no delusions reported or noted, she denied auditory or visual hallucinations. Attention and concentration were intact and memory was mostly reliable but none were formally tested. She is alert and oriented x 3. Insight is limited and judgment is limited and impulse control is impaired. Intellectual ability is commensurate with mild cognitive impairment. Vitals/I&O/Wt Last Vital Signs Temp 97.6 F 07/24/24 13:45 Pulse 85 07/24/24 13:45 Resp 16 07/24/24 13:45 BP 132/83 07/24/24 13:45 Pulse Ox 96 07/24/24 13:45 O2 Del Method Room Air 07/24/24 13:45 Weight last 48 hrs Weight 145.15 kg Data NPU 06/28/24 22:27 06/28/24 22:27 A&P Assessment and plan (1) Impulse control disorder, unspecified: (2) Paranoid reaction, acute: (3) Intellectual disability: (4) Depression: (5) Anxiety: (6) Methamphetamine use disorder, moderate, dependence: Plan This is a 38-year-old white female with a long history of mental health and addiction issues who was hospitalized two months ago with poor social supports, legal issues and homeless now endorsing suicidal ideation with significant history of suicidal attempts. 1. Encourage individual, group and milieu therapy. 2. Recommend sober living treatment at the highest level of care to which the patient is willing to commit. 3. Continue q-15 minute checks for safety.? 4.? Continue paliperidone 9mg daily to target impulsivity. Increased prozac to 40mg daily. 5. Patient on 21 day hold, level 2 to be completed. 90-day hold granted. 6. Guardianship and level 2 underway. Patient [facility]. Hopeful for the guardianship hearing next week. Involuntary Hold Information 2 96 Hour Hold: 96 Hour Involuntary Admission: Yes 96 Hour Hold Ending Date: 07/02/24 96 Hour Hold Ending Time: 23:04 Attestations NPU 2 Medical Necessity Statement*: Inpatient hospitalization is medically necessary and the clinically appropriate intervention at this time. We will monitor and adjust medications as indicated. Her likely length of stay may be longer as we may be in pursuant of state guardianship. Coding Level of Care Code Acute Code for [facility] Fwd Diagnoses Impulse control disorder, unspecified F63.9 Paranoid reaction, acute F23 Intellectual disability F79 Depression F32.A Anxiety F41.9 Methamphetamine use disorder, moderate, dependence F15.20
[2024-07-24] MEDS: trazodone 50 mg Tablet PO (20:25)
[2024-07-24] MEDS: hyDROXYzine 25 mg Capsule 50 MG PO (20:25)
[2024-07-24 20:54] VITALS: BP 106/68; PULSE 81; RESP 17; TEMP 36.9; O2SAT 94
[2024-07-25 06:00] VITALS: BP 100/62; PULSE 78; RESP 17; TEMP 36.4; O2SAT 94
--- NOTE | 2024-07-25 07:54 | P.NPUPN_ITS ---
Subjective NPU 2 Subjective: Patient presented today reporting that she is doing okay. No changes and simply awaits her guardianship ERE and counseling. We discussed being hopeful that this will happen in the next 2 weeks or less. We discussed considering the long-acting injectable but otherwise she denied side effects or any other problems. Mental Status Exam 2 MSE Comments: This is an obese white female in hospital scrubs with limited grooming and eye contact. No abnormal movements except for mild psychomotor retardation. She was pleasant and cooperative with exam in no acute distress. Speech was normal in rate and normal in volume. Mood described as allright. Her affect was euthymic. Thought process was linear. Thought content: Patient denied suicidal or homicidal ideation. There were no delusions reported or noted, she denied auditory or visual hallucinations. Attention and concentration were intact and memory was mostly reliable but none were formally tested. She is alert and oriented x 3. Insight is limited and judgment is limited and impulse control is impaired. Intellectual ability is commensurate with mild cognitive impairment. Vitals/I&O/Wt Last Vital Signs Temp 97.5 F L 07/25/24 06:00 Pulse 78 07/25/24 06:00 Resp 17 07/25/24 06:00 BP 100/62 07/25/24 06:00 Pulse Ox 94 07/25/24 06:00 O2 Del Method Room Air 07/24/24 13:45 Weight last 48 hrs Weight 145.15 kg Data NPU 06/28/24 22:27 06/28/24 22:27 A&P Assessment and plan (1) Impulse control disorder, unspecified: (2) Paranoid reaction, acute: (3) Intellectual disability: (4) Depression: (5) Anxiety: (6) Methamphetamine use disorder, moderate, dependence: Involuntary Hold Information 2 96 Hour Hold: 96 Hour Involuntary Admission: Yes 96 Hour Hold Ending Date: 07/02/24 96 Hour Hold Ending Time: 23:04 Attestations NPU 2 Medical Necessity Statement*: Inpatient hospitalization is medically necessary and the clinically appropriate intervention at this time. We will monitor and adjust medications as indicated. Her likely length of stay may be longer as we may be in pursuit of state guardianship. Coding Level of Care Code Acute Code for [facility] Fwd Diagnoses Impulse control disorder, unspecified F63.9 Paranoid reaction, acute F23 Intellectual disability F79 Depression F32.A Anxiety F41.9 Methamphetamine use disorder, moderate, dependence F15.20
[2024-07-25] MEDS: paliperidone ER 9 mg Tablet PO (09:04)
[2024-07-25] MEDS: metformin 500 mg Tablet PO (09:04)
[2024-07-25] MEDS: fluoxetine 20 mg Capsule 40 MG PO (09:04)
[2024-07-25 14:00] VITALS: BP 124/87; PULSE 100; RESP 16; TEMP 36.9; O2SAT 97
[2024-07-25 19:51] VITALS: BP 107/69; PULSE 81; RESP 16; TEMP 36.9; O2SAT 95
[2024-07-25] MEDS: trazodone 50 mg Tablet PO (23:13)
[2024-07-26 06:00] VITALS: BP 94/62; PULSE 50; RESP 16; O2SAT 98
[2024-07-26] MEDS: fluoxetine 20 mg Capsule 40 MG PO (08:09)
[2024-07-26] MEDS: paliperidone ER 9 mg Tablet PO (08:09)
[2024-07-26] MEDS: metformin 500 mg Tablet PO (08:09)
[2024-07-26 14:00] VITALS: BP 119/84; PULSE 80; RESP 16; TEMP 37.1; O2SAT 95
--- NOTE | 2024-07-26 14:32 | P.NPUPN_ITS ---
Subjective NPU 2 Subjective: 39-year-old female with a history of met hamphetamine abuse, depression, and legal problems with a history of poor impulse control, depression and psychosis. The patient had expressed interest in wanting to know who her guardian would be. She had stated that she was doing better. She had reported having no angry thoughts and reported no side effects from her current medication regimen. She had reported no recent changes in her mood. She had reported adequate sleep. Mental Status Exam 2 MSE Comments: This is an obese white female in hospital scrubs with limited grooming and eye contact. No abnormal movements except for mild psychomotor retardation. She was pleasant and cooperative with exam in no acute distress. Speech was normal in rate and normal in volume. Mood described as okay. Her affect was slightly restricted. Thought process was linear. Thought content: Patient denied suicidal or homicidal ideation. There were no delusions reported or noted, she denied auditory or visual hallucinations. Attention and concentration were intact and memory was mostly reliable but none were formally tested. She is alert and oriented x 3. Insight is limited and judgment is limited and impulse control is improving but still poor. Intellectual ability is commensurate with mild cognitive impairment. Vitals/I&O/Wt Last Vital Signs Temp 98.4 F 07/25/24 19:51 Pulse 50 L 07/26/24 06:00 Resp 16 07/26/24 06:00 BP 94/62 07/26/24 06:00 Pulse Ox 98 07/26/24 06:00 O2 Del Method Room Air 07/25/24 14:00 Weight last 48 hrs Weight 145.15 kg Data NPU 06/28/24 22:27 06/28/24 22:27 A&P Assessment and plan (1) Impulse control disorder, unspecified: (2) Paranoid reaction, acute: (3) Intellectual disability: (4) Depression: (5) Anxiety: (6) Methamphetamine use disorder, moderate, dependence: Plan This is a 39-year-old white female with a long history of mental health and addiction issues who was hospitalized two months ago with poor social supports, legal issues and homeless now endorsing suicidal ideation with significant history of suicidal attempts. 1. Encourage individual, group and milieu therapy. 2. Recommend sober living treatment at the highest level of care to which the patient is willing to commit. 3. Continue q-15 minute checks for safety.? 4.? Continue paliperidone 9mg daily to target impulsivity. Continue prozac to 40mg daily. 5. Patient on 21 day hold, level 2 to be completed. 90-day hold granted. 6. Guardianship and level 2 underway. [facility]. Hopeful for the guardianship hearing this week. Involuntary Hold Information 2 96 Hour Hold: 96 Hour Involuntary Admission: Yes 96 Hour Hold Ending Date: 07/02/24 96 Hour Hold Ending Time: 23:04 Attestations NPU 2 Medical Necessity Statement*: Inpatient hospitalization is medically necessary and the clinically appropriate intervention at this time. We will monitor and adjust medications as indicated. Her likely length of stay may be longer as we may be in pursuit of state guardianship. Coding Level of Care Code Acute Code for [facility] Fwd Diagnoses Impulse control disorder, unspecified F63.9 Paranoid reaction, acute F23 Intellectual disability F79 Depression F32.A Anxiety F41.9 Methamphetamine use disorder, moderate, dependence F15.20
[2024-07-26 19:23] VITALS: BP 135/80; PULSE 78; RESP 18; TEMP 36.6; O2SAT 94
[2024-07-26] MEDS: trazodone 50 mg Tablet PO (20:10)
[2024-07-27 06:00] VITALS: BP 116/77; PULSE 82; RESP 18; TEMP 36.4; O2SAT 95
[2024-07-27] MEDS: fluoxetine 20 mg Capsule 40 MG PO (08:01)
[2024-07-27] MEDS: metformin 500 mg Tablet PO (08:01)
[2024-07-27] MEDS: paliperidone ER 9 mg Tablet PO (08:01)
[2024-07-27 14:00] VITALS: BP 115/79; PULSE 79; RESP 16; TEMP 37.1; O2SAT 97
--- NOTE | 2024-07-27 16:29 | P.NPUPN_ITS ---
Subjective NPU 2 Subjective: 39-year-old female with a history of met hamphetamine abuse, depression, mild cognitive impairment and legal problems with a history of poor impulse control, depression and psychosis. The patient appears to be scheduled for a guardianship hearing and court tomorrow. She had been less irritable on the unit and was pleasant. She had remained hopeful about going to the [facility] and reported less stress at having a home and not needing to focus on finding sustenance and a roof over her head on a daily basis. She had reported no cravings for any methamphetamine at this time. She had denied any hallucinations at this time. No evidence of aggression was noted on the unit. She reported adequate sleep. Mental Status Exam 2 MSE Comments: This is an obese white female in hospital scrubs with limited grooming and eye contact. No abnormal movements except for mild psychomotor retardation. She was pleasant and cooperative with exam in no acute distress. Speech was normal in rate and normal in volume. Mood described as good. Her affect was brighter today. Thought process was linear. Thought content: Patient denied suicidal or homicidal ideation. There were no delusions reported or noted, she denied auditory or visual hallucinations. Attention and concentration were intact and memory was mostly reliable but none were formally tested. She is alert and oriented x 3. Insight is limited and judgment is limited and impulse control is improving but still poor. Intellectual ability is commensurate with mild cognitive impairment. Vitals/I&O/Wt Last Vital Signs Temp 97.6 F 07/27/24 06:00 Pulse 82 07/27/24 06:00 Resp 18 07/27/24 06:00 BP 116/77 07/27/24 06:00 Pulse Ox 95 07/27/24 06:00 O2 Del Method Room Air 07/27/24 06:00 Data NPU 06/28/24 22:27 06/28/24 22:27 A&P Assessment and plan (1) Impulse control disorder, unspecified: (2) Paranoid reaction, acute: (3) Intellectual disability: (4) Depression: (5) Anxiety: (6) Methamphetamine use disorder, moderate, dependence: Plan This is a 39-year-old white female with a long history of mental health and addiction issues who was hospitalized two months ago with poor social supports, legal issues and homeless now endorsing suicidal ideation with significant history of suicidal attempts. 1. Encourage individual, group and milieu therapy. 2. Recommend sober living treatment at the highest level of care to which the patient is willing to commit. 3. Continue q-15 minute checks for safety.? 4.? Continue paliperidone 9mg daily to target impulsivity. Continue prozac to 40mg daily. 5. Patient on 21 day hold, level 2 to be completed. 90-day hold granted. 6. Guardianship and level 2 underway. Patient has been accepted at the [facility]. Hopeful for the guardianship tommorow. Involuntary Hold Information 2 96 Hour Hold: 96 Hour Involuntary Admission: Yes 96 Hour Hold Ending Date: 07/02/24 96 Hour Hold Ending Time: 23:04 Attestations NPU 2 Medical Necessity Statement*: Inpatient hospitalization is medically necessary and the clinically appropriate intervention at this time. We will monitor and adjust medications as indicated. Her likely length of stay is congruent with completion of state guardianship. Coding Level of Care Code Acute Code for [facility] Fwd Diagnoses Impulse control disorder, unspecified F63.9 Paranoid reaction, acute F23 Intellectual disability F79 Depression F32.A Anxiety F41.9 Methamphetamine use disorder, moderate, dependence F15.20
[2024-07-27] MEDS: trazodone 50 mg Tablet PO (20:00)
[2024-07-27 20:05] VITALS: BP 101/54; PULSE 84; RESP 16; TEMP 36.8; O2SAT 95
[2024-07-28 06:00] VITALS: BP 102/64; PULSE 60; RESP 16; O2SAT 95
[2024-07-28] MEDS: metformin 500 mg Tablet PO (08:09)
[2024-07-28] MEDS: fluoxetine 20 mg Capsule 40 MG PO (08:10)
[2024-07-28] MEDS: paliperidone ER 9 mg Tablet PO (08:10)
[2024-07-28 13:52] VITALS: BP 121/84; PULSE 93; RESP 14; TEMP 36.6; O2SAT 97
--- NOTE | 2024-07-28 17:49 | P.NPUPN_ITS ---
Subjective NPU 2 Subjective: 39-year-old female with a history of met hamphetamine abuse, depression, mild cognitive impairment and legal problems with a history of poor impulse control, depression and psychosis. Patient reported no side effects from her medication. She reported that she was feeling better. She reported no cravings for amphetamines or alcohol. She had stated that she was looking forward to meeting her potential guardian tomorrow with the hearing. Mental Status Exam 2 MSE Comments: This is an obese white female in hospital scrubs with improved grooming and eye contact. No abnormal movements except for mild psychomotor retardation. She was pleasant and cooperative with exam in no acute distress. Speech was normal in rate and normal in volume. Mood described as good. Her affect was brighter today. Thought process was linear. Thought content: Patient denied suicidal or homicidal ideation. There were no delusions reported or noted, she denied auditory or visual hallucinations. Attention and concentration were intact and memory was mostly reliable but none were formally tested. She is alert and oriented x 3. Insight is limited and judgment is limited and impulse control is improving but still poor. Intellectual ability is commensurate with mild cognitive impairment. Vitals/I&O/Wt Last Vital Signs Temp 97.8 F 07/28/24 13:52 Pulse 93 07/28/24 13:52 Resp 14 07/28/24 13:52 BP 121/84 07/28/24 13:52 Pulse Ox 97 07/28/24 13:52 O2 Del Method Room Air 07/28/24 13:52 Data NPU 06/28/24 22:27 06/28/24 22:27 A&P Assessment and plan (1) Impulse control disorder, unspecified: (2) Paranoid reaction, acute: (3) Intellectual disability: (4) Depression: (5) Anxiety: (6) Methamphetamine use disorder, moderate, dependence: Plan This is a 39-year-old white female with a long history of mental health and addiction issues who was hospitalized two months ago with poor social supports, legal issues and homeless now endorsing suicidal ideation with significant history of suicidal attempts. 1. Encourage individual, group and milieu therapy. 2. Recommend sober living treatment at the highest level of care to which the patient is willing to commit. 3. Continue q-15 minute checks for safety.? 4.? Continue paliperidone 9mg daily to target impulsivity. Continue prozac to 40mg daily. 5. Patient on 21 day hold, level 2 completed. 90-day hold granted. 6. Guardianship and level 2 underway. [facility]. The guardianship hearing is tommorow with patient planning to attend. Involuntary Hold Information 2 96 Hour Hold: 96 Hour Involuntary Admission: Yes 96 Hour Hold Ending Date: 07/02/24 96 Hour Hold Ending Time: 23:04 Attestations NPU 2 Medical Necessity Statement*: Inpatient hospitalization is medically necessary and the clinically appropriate intervention at this time. We will monitor and adjust medications as indicated. Her likely length of stay is congruent with completion of state guardianship. Coding Level of Care Code Acute Code for [facility] Fwd Diagnoses Impulse control disorder, unspecified F63.9 Paranoid reaction, acute F23 Intellectual disability F79 Depression F32.A Anxiety F41.9 Methamphetamine use disorder, moderate, dependence F15.20
[2024-07-28] MEDS: trazodone 50 mg Tablet PO (19:22)
[2024-07-28 19:57] VITALS: BP 142/92; PULSE 89; RESP 18; TEMP 36.6; O2SAT 95
[2024-07-29 06:00] VITALS: BP 106/70; PULSE 62; RESP 16; O2SAT 94
[2024-07-29] MEDS: fluoxetine 20 mg Capsule 40 MG PO (08:41)
[2024-07-29] MEDS: metformin 500 mg Tablet PO (08:41)
[2024-07-29] MEDS: paliperidone ER 9 mg Tablet PO (08:41)
[2024-07-29 12:29] VITALS: BP 131/87; PULSE 81; RESP 18; TEMP 37.1; O2SAT 96
--- NOTE | 2024-07-29 14:02 | P.NPUPN_ITS ---
Subjective NPU 2 Subjective: 39-year-old female with a history of met hamphetamine abuse, depression, mild cognitive impairment and legal problems with a history of poor impulse control, depression and psychosis. The patient had a guardianship hearing today and temporary guardianship was given to the state. The patient reported no acute changes and stated that she was [facility] became [facility]. Patient had no episodes of aggression. She had no side effects reported from her medication. Mental Status Exam 2 MSE Comments: This is an obese white female in hospital scrubs with improved grooming and eye contact. No abnormal movements except for mild psychomotor retardation. She was pleasant and cooperative with exam in no acute distress. Speech was normal in rate and normal in volume. Mood described as okay. Her affect was brighter today. Thought process was linear. Thought content: Patient denied suicidal or homicidal ideation. There were no delusions reported or noted, she denied auditory or visual hallucinations. Attention and concentration were intact and memory was mostly reliable but none were formally tested. She is alert and oriented x 3. Insight is limited and judgment is limited and impulse control is improving. Intellectual ability is commensurate with mild cognitive impairment. Vitals/I&O/Wt Last Vital Signs Temp 98.8 F 07/29/24 12:29 Pulse 81 07/29/24 12:29 Resp 18 07/29/24 12:29 BP 131/87 07/29/24 12:29 Pulse Ox 96 07/29/24 12:29 O2 Del Method Room Air 07/28/24 13:52 Data NPU 06/28/24 22:27 06/28/24 22:27 A&P Assessment and plan (1) Impulse control disorder, unspecified: (2) Paranoid reaction, acute: (3) Intellectual disability: (4) Depression: (5) Anxiety: (6) Methamphetamine use disorder, moderate, dependence: Plan This is a 39-year-old white female with a long history of mental health and addiction issues who was hospitalized two months ago with poor social supports, legal issues and homeless now endorsing suicidal ideation with significant history of suicidal attempts. 1. Encourage individual, group and milieu therapy. 2. Recommend sober living treatment at the highest level of care to which the patient is willing to commit. 3. Continue q-15 minute checks for safety.? 4.? Continue paliperidone 9mg daily to target impulsivity. Continue prozac to 40mg daily. 5. Patient on 21 day hold, level 2 completed. 90-day hold granted. 6. Guardianship and level 2 underway. Patient has been accepted at the [facility]. Guardianship completed. Confirming bed availability at the [facility] with plan to transfer there as soon as bed available. Involuntary Hold Information 2 96 Hour Hold: 96 Hour Involuntary Admission: Yes 96 Hour Hold Ending Date: 07/02/24 96 Hour Hold Ending Time: 23:04 Attestations NPU 2 Medical Necessity Statement*: Inpatient hospitalization is medically necessary and the clinically appropriate intervention at this time. We will monitor and adjust medications as indicated. Her likely length of stay is congruent with completion of state guardianship. Coding Level of Care Code Acute Code for [facility] Fwd Diagnoses Impulse control disorder, unspecified F63.9 Paranoid reaction, acute F23 Intellectual disability F79 Depression F32.A Anxiety F41.9 Methamphetamine use disorder, moderate, dependence F15.20
[2024-07-29] MEDS: hyDROXYzine 25 mg Capsule 50 MG PO (16:31)
[2024-07-29 19:24] VITALS: BP 135/83; PULSE 80; RESP 17; TEMP 36.6; O2SAT 95
[2024-07-29] MEDS: trazodone 50 mg Tablet PO (20:08)
[2024-07-30 06:00] VITALS: BP 123/89; PULSE 86; RESP 17; O2SAT 96
[2024-07-30] MEDS: metformin 500 mg Tablet PO (08:55)
[2024-07-30] MEDS: paliperidone ER 9 mg Tablet PO (08:55)
[2024-07-30] MEDS: fluoxetine 20 mg Capsule 40 MG PO (08:55)
--- NOTE | 2024-07-30 09:06 | PC.NURSE ---
During morning assessment, patient flat and calm. Patient states that she is ready to be discharged, that she was supposed leave yesterday. Patient denies anxiety, depression, SI, HI, AVH.
--- NOTE | 2024-07-30 11:54 | PC.NURSE ---
Report This nurse gave report to Sharyn at [facility]. Phone number, . Sharyn given Robert Darden (guardian) phone number, medication information, behaviors, labs, etc. All questions answered.
--- NOTE | 2024-07-30 13:27 | DCPLANNER ---
IMM completed 07/30/2024 @ 1:23pm and pt was given a copy of his rights.
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
== END 2024-07-30 14:03 | disposition intermediate care facility (04) | DRG 885 ==
LOC: ER 23:21 → NP 23:56
PROVIDERS: Emergency Medicine; Admitting Provider Psychiatry & Neurology Psychiatry; Emergency Provider Physician Assistant; PCP Physician Assistant; Visit Provider Psychiatry & Neurology Psychiatry
DX: F23 Brief psychotic disorder (principal); F15.20 Other stimulant dependence, uncomplicated; Z59.00 Homelessness unspecified; R45.851 Suicidal ideations; Z68.43 Body mass index [BMI] 50.0-59.9, adult; F79 Unspecified intellectual disabilities; F32.A Depression, unspecified; F41.9 Anxiety disorder, unspecified; Z91.51 Personal history of suicidal behavior; E66.01 Morbid (severe) obesity due to excess calories; Z91.148 Patient's other noncompliance with medication regimen for other reason; F63.9 Impulse disorder, unspecified
CPT/HCPCS: 36415; 80053; 80306; 80307; 81001; 81025; 85025; 97150; 97165; 97167; 99285